=== PATIENT | male | born 1950 | race Caucasian/White ===

== ENCOUNTER 2018-05-06 19:14 | Emergency (ER) | payer MEDICARE, BC, SELFPAY ==
[2018-05-06 19:26] VITALS: BP 175/85; PULSE 71; RESP 18; TEMP 36.1; O2SAT 99
--- NOTE | 2018-05-06 20:20 | DI.CT.S_ITS ---
PROCEDURE: CT ABDOMEN PELVIS W CON INDICATIONS: epigastric abd pain TECHNIQUE: After the administration of intravenous contrast, 5 mm thick sections acquired from the diaphragm to the symphysis. 5 mm coronal and sagittal reformats were acquired. For radiation dose reduction, the following was used: automated exposure control, adjustment of mA and/or kV according to patient size. COMPARISON: None. FINDINGS: Image quality: Excellent. ABDOMEN: Lung bases: Bibasilar dependent atelectasis are seen. Cardiac size is enlarged, no pericardial effusion. Solid organs: Liver is normal in size. Hepatic steatosis is seen. Gallbladder is surgically absent. Biliary system is non dilated. Pancreas enhances normally. Spleen is normal in size and enhancement. No adrenal nodules. There is right perinephric fat stranding and mild dilatation of right renal collecting system and right ureter. 3 mm calcification is seen in distal right ureter just proximal to right UVJ, consistent with distal right ureteral stone and right hydronephrosis. No left-sided obstructing renal stone hydronephrosis. Bilateral renal cysts are seen measures up to 7.9 x 6.7 cm in size in lower pole of right kidney and up to 2.1 x 3.3 cm in size in mid to lower pole of left kidney. Bilateral nonobstructing renal calculi are also seen. Peritoneum and bowel: Patient is status post prior gastric bypass surgery. No evidence of bowel obstruction. No gross abnormal bowel wall thickening or mesenteric fat stranding. Appendix is visualized and is within normal limits. Extensive sigmoid diverticulosis is seen, no CT evidence of acute diverticulitis. Nodes and vessels: No retroperitoneal or mesenteric adenopathy by size criteria. Aorta and inferior vena cava are normal in size. Miscellaneous: No ventral hernias. PELVIS: Genitourinary: Bladder wall thickness is normal. Mildly enlarged prostate gland is seen with mild mass effect on floor of urinary bladder. Miscellaneous: No inguinal hernias or adenopathy. Bones: No suspicious bony lesions. No vertebral body compression fractures. IMPRESSION: 1. 3 mm right distal ureteral stone with mild right-sided hydronephrosis and hydroureter. Mild right perinephric fat stranding. 2. Bilateral renal cysts and bilateral nonobstructing renal stones. No left-sided hydronephrosis. 3. Normal appendix. No bowel obstruction. No free fluid or free air. Extensive sigmoid diverticulosis with no CT evidence of acute diverticulitis. Dictated by: Chris Hughes M.D. on 05/06/2018 at 21:45 Approved by: Chris Hughes M.D. on 05/06/2018 at 21:49
[2018-05-06 20:28] VITALS: BP 154/75; PULSE 70; O2SAT 99
[2018-05-06] MEDS: SODIUM CHLORIDE 0.9% 1,000 ML 1000 ML IV (20:28)
[2018-05-06] MEDS: MORPHINE 4 MG/ML INJ IV ×2 (20:28→22:05)
[2018-05-06] MEDS: ONDANSETRON 4 MG/2 ML INJ IV (20:28)
[2018-05-06 20:56] LABS: Add Manual Diff / Slide Review NO; Basophils Percent Auto 0.2 % (0-2); Eosinophils Percent Auto 0.8 % (2-4); Hematocrit 48.7 % (41-53); Hemoglobin 16.3 g/dL (13.5-17.5); Lymphocytes Percent Auto 7.1 % (25-40); Mean Corpuscular HGB Conc 33.4 % (30-36); Mean Corpuscular Hemoglobin 28.6 PG (26-34); Mean Corpuscular Volume 85.6 fL (80-100); Monocytes Percent Auto 7.3 % (3-14); Neutrophils Absolute Auto 13200 /uL (3000-5900); Neutrophils Percent Auto 84.6 % (50-75); Platelet Count 300 X10^3/uL (150-400); Red Blood Cell Count 5.68 X10^6/uL (4.5-5.9); Red Cell Distribution Width 16.2 % (11.6-14.8); White Blood Cell Count 15.6 X10^3/uL (4.5-11.0)
[2018-05-06 21:07] LABS: Alanine Aminotransferase 28 IU/L (21-72); Albumin 4.6 g/dL (3.5-5.0); Albumin Globulin Ratio 1.5 (1.0-2.8); Alkaline Phosphatase 76 U/L (38-126); Amylase 83 U/L (30-110); Aspartate Aminotransferase 35 IU/L (17-59); Bilirubin Total 2.1 mg/dL (0.2-1.3); Blood Urea Nitrogen 18 mg/dL (9-20); Calcium 9.6 mg/dL (8.4-10.2); Carbon Dioxide 26 mmol/L (22-32); Chloride 97 mmol/L (98-107); Creatine Kinase 168 U/L (55-170); Estimated Glomerular Filt Rate > 60.0 mL/min (>60); Glucose 130 mg/dL (80-110); Lipase 117 U/L (23-300); Potassium 4.3 mmol/L (3.4-5.1); Sodium 137 mmol/L (137-145); Total Protein 7.6 g/dL (6.3-8.2)
[2018-05-06 21:18] LABS: Troponin I < 0.012 ng/mL (0.01-0.034)
[2018-05-06 21:22] LABS: Creatine Kinase MB 1.65 ng/mL (<2.37); HEMOLYSIS 24 (0-50)
[2018-05-06] MEDS: METOCLOPRAMIDE 10 MG/2 ML INJ IV (22:05)
[2018-05-06] MEDS: KETOROLAC 60 MG/2 ML VIAL 15 MG IV (22:05)
[2018-05-06 22:28] LABS: Bacteria Urine None Seen
[2018-05-06 22:45] VITALS: BP 114/67; PULSE 67; RESP 18; O2SAT 93
[2018-05-06 22:45] LABS: Appearance Urine UA CLEAR; Bilirubin Urine UA NEGATIVE (NEGATIVE); Color Urine UA YELLOW; Glucose Urine UA NEGATIVE (Normal); Ketones Urine UA TRACE (NEGATIVE); Leukocyte Esterase Urine UA NEGATIVE (NEGATIVE); Nitrite Urine UA Negative (Negative); Occult Blood Urine UA 2+ (Negative); Protein Urine UA NEGATIVE (Negative); Urobilinogen Urine UA 0.2 E.U./dL (0.2)
[2018-05-06 22:55] LABS: Culture Indicated Urine Cult Not Indicated; RBC Urine 1-5/HPF (0-5/HPF); WBC Urine 0-1/HPF (0-5/HPF)
--- NOTE | 2018-05-06 22:58 | ED.ABDPAIN ---
HPI - Abdominal Pain <CHANDRA Fu - Last Filed: 05/06/18 23:08> General Chief Complaint: Abdominal Pain Stated Complaint: STATES DIVERTICULITIS FLARE Time Seen by Provider: 05/06/18 20:01 Source: patient and family Mode of arrival: ambulatory Limitations: no limitations History of Present Illness HPI narrative: Patient presents with chief complaint of abdominal pain. He states that he is having a diverticulitis flare that started at 3:00 p.m.. He complains of nausea, but denies vomiting or diarrhea. Denies fever chills, chest pain or shortness of breath cough or congestion. He does complain of nausea. He took a does of Zofran prior to arrival. He states that he has a history of diverticulitis and that this is an exacerbation of it. He denies any abnormal bowel movements or blood in the stool. He does admit to some surgical abdominal history. He denies any urinary symptoms including urgency frequency or dysuria. Related Data Home Medications Medication Instructions Recorded Confirmed aspirin 81 mg tablet,delayed 81 mg PO DAILY 04/27/18 04/27/18 release hydrochlorothiazide 12.5 mg tablet 12.5 mg PO DAILY 04/27/18 04/27/18 krill oil 500 mg capsule mg PO cap 04/27/18 04/27/18 levothyroxine 125 mcg capsule 65 mcg PO DAILY cap 04/27/18 04/27/18 testosterone 1.62 % (20.25 mg/1.25 TOP gram 04/27/18 04/27/18 gram) transdermal gel packet Previous Rx's Medication Instructions Recorded amoxicillin 875 mg-potassium 1 tab PO BID 10 Days #20 tab 04/27/18 clavulanate 125 mg tablet ondansetron 4 mg PO TID-QID PRN #20 tab 05/06/18 oxycodone-acetaminophen [Percocet] 2 tab PO Q4-6H PRN #14 tab 05/06/18 Allergies Allergy/AdvReac Type Severity Reaction Status Date / Time No Known Drug Allergies Allergy Unverified 04/27/18 09:17 Review of Systems <CHANDRA Fu - Last Filed: 05/06/18 23:08> Review of Systems GENERAL: Denies chills, fatigue, malaise, fever, sweats. HEENT: Denies sinus pain, ear pain, sore throat, difficulty swallowing, dizziness. RESPIRATORY: Denies dyspnea, cough, wheezing, hemoptysis, sputum. CARDIOVASCULAR: Denies chest pain, palpitations, orthopnea, edema, GASTROINTESTINAL: See HPI : Denies dysuria, frequency, incontinence, hematuria, urinary retention. MUSCULOSKELETAL: denies weakness, joint pain, or bony pain SKIN: Denies rash, skin lesions, or other NEUROLOGIC: Denies weakness, headache, numbness, change in speech, confusion, seizures, incoordination. PSYCHIATRIC: No concerning psychosocial issues. 12 point review of systems is negative except for those stated above Exam <WILLIS Fu-BC - Last Filed: 05/06/18 23:08> Narrative Exam Narrative: GENERAL: This is a well-nourished, well-developed patient, lying on stretcher with vomit bag HEAD: Atraumatic. Normocephalic. No temporal or scalp tenderness. EYES: Pupils equal round and reactive. Extraocular motions intact. No scleral icterus. No injection or drainage. ENT: Nose without bleeding, purulent drainage or septal hematoma. Throat without erythema, tonsillar hypertrophy or exudate. Uvula midline. Airway patent. NECK: Trachea midline. No JVD or lymphadenopathy. Supple, nontender, no meningeal signs. CARDIOVASCULAR: Regular rate and rhythm without murmurs, gallops, or rubs. RESPIRATORY: Clear to auscultation. Breath sounds equal bilaterally. No wheezes, rales, or rhonchi. GASTROINTESTINAL: Abdomen obese and diffusely tender, nondistended. No hepato-splenomegaly, or palpable masses. Like being noted right lower and left lower quadrants. No pulsatile mass palpated. Active bowel sounds all 4 quadrants. EXTREMITIES: No clubbing, cyanosis, or edema. No joint tenderness, effusion, or edema noted. BACK: Nontender without deformity or crepitance. No flank tenderness. NEURO: AOx3. SKIN: No rash or erythema. Initial Vital Signs Initial Vital Signs: Vital Signs Temperature 97.0 F L 05/06/18 19:26 Pulse Rate 71 05/06/18 19:26 Respiratory Rate 18 05/06/18 19:26 Blood Pressure 175/85 H 05/06/18 19:26 Pulse Oximetry 99 05/06/18 19:26 <Sabino Calvo DO - Last Filed: 05/06/18 23:49> Initial Vital Signs Initial Vital Signs: Vital Signs Temperature 97.0 F L 05/06/18 19:26 Pulse Rate 71 05/06/18 19:26 Respiratory Rate 18 05/06/18 19:26 Blood Pressure 175/85 H 05/06/18 19:26 Pulse Oximetry 99 05/06/18 19:26 Course <Hannah LyonWILLIS-BC - Last Filed: 05/06/18 23:08> Orders Ordered: ED Orders 05/06/18 20:16 EKG-12 Lead Stat 05/06/18 20:20 CT abdomen pelvis w con Stat 05/06/18 20:46 Amylase Stat Complete Blood Count AUTO DIFF Stat Comprehensive Metabolic Panel Stat Lipase Stat Troponin & CK Cardiac Panel Stat 05/06/18 22:21 Urinalysis and Microscopic Stat Discontinued Medications Sodium Chloride (Normal Saline 0.9%) 1,000 mls @ 1,000 mls/hr IV BOLUS ONE Stop: 05/06/18 21:16 Last Infusion: 05/06/18 21:36 Dose: 0 mls/hr Admin: 05/06/18 20:28 Dose: 1,000 mls/hr Ketorolac Tromethamine (Toradol) 15 mg IV NOW ONE Stop: 05/06/18 21:55 Last Admin: 05/06/18 22:05 Dose: 15 mg Metoclopramide HCl (Reglan) 10 mg IV NOW ONE Stop: 05/06/18 21:53 Last Admin: 05/06/18 22:05 Dose: 10 mg Morphine Sulfate (Morphine) 4 mg IV NOW ONE Stop: 05/06/18 20:19 Last Admin: 05/06/18 20:28 Dose: 4 mg Morphine Sulfate (Morphine) 4 mg IV NOW ONE Stop: 05/06/18 21:53 Last Admin: 05/06/18 22:05 Dose: 4 mg Ondansetron HCl (Zofran) 4 mg IV NOW ONE Stop: 05/06/18 20:19 Last Admin: 05/06/18 20:28 Dose: 4 mg Vital Signs - 8 hr 05/06/18 19:26 05/06/18 20:28 05/06/18 22:45 Temperature 97.0 F L Pulse Rate 71 70 67 Respiratory Rate 18 18 Blood Pressure 175/85 H Blood Pressure [Left Arm] 154/75 H Blood Pressure [Left Wrist] 114/67 Pulse Oximetry 99 99 93 <Sabino Calvo DO - Last Filed: 05/06/18 23:49> Orders Ordered: ED Orders 05/06/18 20:16 EKG-12 Lead Stat 05/06/18 20:20 CT abdomen pelvis w con Stat 05/06/18 20:46 Amylase Stat Complete Blood Count AUTO DIFF Stat Comprehensive Metabolic Panel Stat Lipase Stat Troponin & CK Cardiac Panel Stat 05/06/18 22:21 Urinalysis and Microscopic Stat Discontinued Medications Sodium Chloride (Normal Saline 0.9%) 1,000 mls @ 1,000 mls/hr IV BOLUS ONE Stop: 05/06/18 21:16 Last Infusion: 05/06/18 21:36 Dose: 0 mls/hr Admin: 05/06/18 20:28 Dose: 1,000 mls/hr Ketorolac Tromethamine (Toradol) 15 mg IV NOW ONE Stop: 05/06/18 21:55 Last Admin: 05/06/18 22:05 Dose: 15 mg Metoclopramide HCl (Reglan) 10 mg IV NOW ONE Stop: 05/06/18 21:53 Last Admin: 05/06/18 22:05 Dose: 10 mg Morphine Sulfate (Morphine) 4 mg IV NOW ONE Stop: 05/06/18 20:19 Last Admin: 05/06/18 20:28 Dose: 4 mg Morphine Sulfate (Morphine) 4 mg IV NOW ONE Stop: 05/06/18 21:53 Last Admin: 05/06/18 22:05 Dose: 4 mg Ondansetron HCl (Zofran) 4 mg IV NOW ONE Stop: 05/06/18 20:19 Last Admin: 05/06/18 20:28 Dose: 4 mg Vital Signs - 8 hr 05/06/18 19:26 05/06/18 20:28 05/06/18 22:45 Temperature 97.0 F L Pulse Rate 71 70 67 Respiratory Rate 18 18 Blood Pressure 175/85 H Blood Pressure [Left Arm] 154/75 H Blood Pressure [Left Wrist] 114/67 Pulse Oximetry 99 99 93 MDM - Abdominal Pain <CHANDRA Fu - Last Filed: 05/06/18 23:08> Differential Diagnosis Differential diagnosis: Likely abdominal pain, acute appendicitis, calculus of kidney, constipation and diverticulitis Lab Data Attestation: I reviewed the patient's lab results. Result diagrams: 05/06/18 20:46 05/06/18 20:46 Lab Results 05/06/18 05/06/18 05/06/18 Range/Units 20:46 20:46 20:46 WBC 15.6 H (4.5-11.0) X10^3/uL RBC 5.68 (4.5-5.9) X10^6/uL Hgb 16.3 (13.5-17.5) g/dL Hct 48.7 (41-53) % MCV 85.6 (80-100) fL MCH 28.6 (26-34) PG MCHC 33.4 (30-36) % RDW 16.2 H (11.6-14.8) % Plt Count 300 (150-400) X10^3/uL Neut % (Auto) 84.6 H (50-75) % Lymph % (Auto) 7.1 L (25-40) % [place] % (Auto) 7.3 (3-14) % Eos % (Auto) 0.8 L (2-4) % Baso % (Auto) 0.2 (0-2) % Neut # (Auto) 70095 H (0804-9201) /uL Sodium Cancelled 137 Potassium Cancelled 4.3 Chloride Cancelled 97 L Carbon Dioxide Cancelled 26 BUN Cancelled 18 Creatinine Cancelled 1.20 Estimated GFR Cancelled > 60.0 BUN/Creatinine Ratio Cancelled 15.0 Glucose Cancelled 130 H Calcium Cancelled 9.6 Total Bilirubin Cancelled 2.1 H AST Cancelled 35 ALT Cancelled 28 Alkaline Phosphatase Cancelled 76 Total Creatine Kinase 168 (55-170) U/L CK-MB (CK-2) 1.65 (<2.37) ng/mL CK-MB (CK-2) Rel Index 1.0 L (1.5-5.0) % Troponin I < 0.012 (0.01-0.034) ng/mL Total Protein Cancelled 7.6 Albumin Cancelled 4.6 Globulin Cancelled 3.0 Albumin/Globulin Ratio Cancelled 1.5 Amylase 83 (30-110) U/L Lipase Cancelled 117 Specimen Hemolysis Cancelled Urine Color Urine Appearance Urine pH (4.5-8.0) Ur Specific [place] (1.000-1.035) Urine Protein (Negative) Urine Glucose (UA) (Normal) g/dL Urine Ketones (NEGATIVE) Urine Occult Blood (Negative) Urine Nitrate (Negative) Urine Bilirubin (NEGATIVE) Urine Urobilinogen (0.2) E.U./dL Ur Leukocyte Esterase (NEGATIVE) Urine RBC (0-5/HPF) Urine WBC (0-5/HPF) Urine Bacteria (None) Ur Culture Indicated? Micro UA Comment 05/06/18 Range/Units 22:21 WBC (4.5-11.0) X10^3/uL RBC (4.5-5.9) X10^6/uL Hgb (13.5-17.5) g/dL Hct (41-53) % MCV (80-100) fL MCH (26-34) PG MCHC (30-36) % RDW (11.6-14.8) % Plt Count (150-400) X10^3/uL Neut % (Auto) (50-75) % Lymph % (Auto) (25-40) % [place] % (Auto) (3-14) % Eos % (Auto) (2-4) % Baso % (Auto) (0-2) % Neut # (Auto) (4487-5888) /uL Sodium Potassium Chloride Carbon Dioxide BUN Creatinine Estimated GFR BUN/Creatinine Ratio Glucose Calcium Total Bilirubin AST ALT Alkaline Phosphatase Total Creatine Kinase (55-170) U/L CK-MB (CK-2) (<2.37) ng/mL CK-MB (CK-2) Rel Index (1.5-5.0) % Troponin I (0.01-0.034) ng/mL Total Protein Albumin Globulin Albumin/Globulin Ratio Amylase (30-110) U/L Lipase Specimen Hemolysis Urine Color Yellow Urine Appearance Clear Urine pH 5.0 (4.5-8.0) Ur Specific [place] 1.020 (1.000-1.035) Urine Protein Negative (Negative) Urine Glucose (UA) Negative (Normal) g/dL Urine Ketones Trace H (NEGATIVE) Urine Occult Blood 2+ H (Negative) Urine Nitrate Negative (Negative) Urine Bilirubin Negative (NEGATIVE) Urine Urobilinogen 0.2 (0.2) E.U./dL Ur Leukocyte Esterase Negative (NEGATIVE) Urine RBC 1-5/hpf (0-5/HPF) Urine WBC 0-1/hpf (0-5/HPF) Urine Bacteria None seen (None) Ur Culture Indicated? Cult not indicated Micro UA Comment Not Reportable Point of care testing: Urine Dip Bedside Urine Glucose Negative Bedside Urine Bilirubin - Negative Bedside Urine Ketone +/- 5 Urine Specific [place] 1.025 Bedside Urine Occult Blood ++ Bedside Urine pH 5.5 Bedside Urine Protein +/- 15 Bedside Urine Urobilinogen - Negative Bedside Urine Nitrite - Negative Bedside Urine Leukocytes - Negative Esterase Imaging Data CT scan - abdomen: Radiologist's impression: [address] [address] [address] Scan Report Signed Patient: Ej Man#: [id number] : 3Acct:[id number] Age/Sex: 67 / MDate of Service: 05/06/18 Loc: ED Accession Number: [id number] Procedure: CT abdomen pelvis w con Ordering Provider: Hannah Lyon [employer]-BC PROCEDURE: CT ABDOMEN PELVIS W CON INDICATIONS: epigastric abd pain TECHNIQUE: After the administration of intravenous contrast, 5 mm thick sections acquired from the diaphragm to the symphysis. 5 mm coronal and sagittal reformats were acquired. For radiation dose reduction, the following was used: automated exposure control, adjustment of mA and/or kV according to patient size. COMPARISON: None. FINDINGS: Image quality: Excellent. ABDOMEN: Lung bases: Bibasilar dependent atelectasis are seen. Cardiac size is enlarged, no pericardial effusion. Solid organs: Liver is normal in size. Hepatic steatosis is seen. Gallbladder is surgically absent. Biliary system is non dilated. Pancreas enhances normally. Spleen is normal in size and enhancement. No adrenal nodules. There is right perinephric fat stranding and mild dilatation of right renal collecting system and right ureter. 3 mm calcification is seen in distal right ureter just proximal to right UVJ, consistent with distal right ureteral stone and right hydronephrosis. No left-sided obstructing renal stone hydronephrosis. Bilateral renal cysts are seen measures up to 7.9 x 6.7 cm in size in lower pole of right kidney and up to 2.1 x 3.3 cm in size in mid to lower pole of left kidney. Bilateral nonobstructing renal calculi are also seen. Peritoneum and bowel: Patient is status post prior gastric bypass surgery. No evidence of bowel obstruction. No gross abnormal bowel wall thickening or mesenteric fat stranding. Appendix is visualized and is within normal limits. Extensive sigmoid diverticulosis is seen, no CT evidence of acute diverticulitis. Nodes and vessels: No retroperitoneal or mesenteric adenopathy by size criteria. Aorta and inferior vena cava are normal in size. Miscellaneous: No ventral hernias. PELVIS: Genitourinary: Bladder wall thickness is normal. Mildly enlarged prostate gland is seen with mild mass effect on floor of urinary bladder. Miscellaneous: No inguinal hernias or adenopathy. Bones: No suspicious bony lesions. No vertebral body compression fractures. IMPRESSION: 1. 3 mm right distal ureteral stone with mild right-sided hydronephrosis and hydroureter. Mild right perinephric fat stranding. 2. Bilateral renal cysts and bilateral nonobstructing renal stones. No left-sided hydronephrosis. 3. Normal appendix. No bowel obstruction. No free fluid or free air. Extensive sigmoid diverticulosis with no CT evidence of acute diverticulitis. Dictated by: Chris Hughes M.D. on 05/06/2018 at 21:45 Approved by: Chris Hughes M.D. on 05/06/2018 at 21:49 ECG Data Attestation: I personally reviewed and interpreted this ECG as follows: Prior ECG tracings: not available for review Interpretation: Sinus rhythm. Heart rate 85. single PVC noted. No ST elevation or depression. MDM Narrative Medical decision making narrative: Patient presented with chief complaint of abdominal pain, of believing it was diverticulitis. His CT scan revealed a kidney stone in his right ureter. He was treated with morphine Toradol and fluids as well as Zofran and Reglan in the emergency department. I discussed at length following up his primary care provider in a few days, straining his urine, nausea and pain control at home as well as pushing fluids. I discussed following up if noted signs of infection including fever. His urine had no signs of infection in the emergency department. Patient and had no questions or concerns upon discharge and states understanding of instructions. <Sabino Calvo, - Last Filed: 05/06/18 23:49> Lab Data Lab Results 05/06/18 05/06/18 05/06/18 Range/Units 20:46 20:46 20:46 WBC 15.6 H (4.5-11.0) X10^3/uL RBC 5.68 (4.5-5.9) X10^6/uL Hgb 16.3 (13.5-17.5) g/dL Hct 48.7 (41-53) % MCV 85.6 (80-100) fL MCH 28.6 (26-34) PG MCHC 33.4 (30-36) % RDW 16.2 H (11.6-14.8) % Plt Count 300 (150-400) X10^3/uL Neut % (Auto) 84.6 H (50-75) % Lymph % (Auto) 7.1 L (25-40) % [place] % (Auto) 7.3 (3-14) % Eos % (Auto) 0.8 L (2-4) % Baso % (Auto) 0.2 (0-2) % Neut # (Auto) 98786 H (3221-9708) /uL Sodium Cancelled 137 Potassium Cancelled 4.3 Chloride Cancelled 97 L Carbon Dioxide Cancelled 26 BUN Cancelled 18 Creatinine Cancelled 1.20 Estimated GFR Cancelled > 60.0 BUN/Creatinine Ratio Cancelled 15.0 Glucose Cancelled 130 H Calcium Cancelled 9.6 Total Bilirubin Cancelled 2.1 H AST Cancelled 35 ALT Cancelled 28 Alkaline Phosphatase Cancelled 76 Total Creatine Kinase 168 (55-170) U/L CK-MB (CK-2) 1.65 (<2.37) ng/mL CK-MB (CK-2) Rel Index 1.0 L (1.5-5.0) % Troponin I < 0.012 (0.01-0.034) ng/mL Total Protein Cancelled 7.6 Albumin Cancelled 4.6 Globulin Cancelled 3.0 Albumin/Globulin Ratio Cancelled 1.5 Amylase 83 (30-110) U/L Lipase Cancelled 117 Specimen Hemolysis Cancelled Urine Color Urine Appearance Urine pH (4.5-8.0) Ur Specific [place] (1.000-1.035) Urine Protein (Negative) Urine Glucose (UA) (Normal) g/dL Urine Ketones (NEGATIVE) Urine Occult Blood (Negative) Urine Nitrate (Negative) Urine Bilirubin (NEGATIVE) Urine Urobilinogen (0.2) E.U./dL Ur Leukocyte Esterase (NEGATIVE) Urine RBC (0-5/HPF) Urine WBC (0-5/HPF) Urine Bacteria (None) Ur Culture Indicated? Micro UA Comment 05/06/18 Range/Units 22:21 WBC (4.5-11.0) X10^3/uL RBC (4.5-5.9) X10^6/uL Hgb (13.5-17.5) g/dL Hct (41-53) % MCV (80-100) fL MCH (26-34) PG MCHC (30-36) % RDW (11.6-14.8) % Plt Count (150-400) X10^3/uL Neut % (Auto) (50-75) % Lymph % (Auto) (25-40) % [place] % (Auto) (3-14) % Eos % (Auto) (2-4) % Baso % (Auto) (0-2) % Neut # (Auto) (0966-1562) /uL Sodium Potassium Chloride Carbon Dioxide BUN Creatinine Estimated GFR BUN/Creatinine Ratio Glucose Calcium Total Bilirubin AST ALT Alkaline Phosphatase Total Creatine Kinase (55-170) U/L CK-MB (CK-2) (<2.37) ng/mL CK-MB (CK-2) Rel Index (1.5-5.0) % Troponin I (0.01-0.034) ng/mL Total Protein Albumin Globulin Albumin/Globulin Ratio Amylase (30-110) U/L Lipase Specimen Hemolysis Urine Color Yellow Urine Appearance Clear Urine pH 5.0 (4.5-8.0) Ur Specific [place] 1.020 (1.000-1.035) Urine Protein Negative (Negative) Urine Glucose (UA) Negative (Normal) g/dL Urine Ketones Trace H (NEGATIVE) Urine Occult Blood 2+ H (Negative) Urine Nitrate Negative (Negative) Urine Bilirubin Negative (NEGATIVE) Urine Urobilinogen 0.2 (0.2) E.U./dL Ur Leukocyte Esterase Negative (NEGATIVE) Urine RBC 1-5/hpf (0-5/HPF) Urine WBC 0-1/hpf (0-5/HPF) Urine Bacteria None seen (None) Ur Culture Indicated? Cult not indicated Micro UA Comment Not Reportable Point of care testing: Urine Dip Bedside Urine Glucose Negative Bedside Urine Bilirubin - Negative Bedside Urine Ketone +/- 5 Urine Specific [place] 1.025 Bedside Urine Occult Blood ++ Bedside Urine pH 5.5 Bedside Urine Protein +/- 15 Bedside Urine Urobilinogen - Negative Bedside Urine Nitrite - Negative Bedside Urine Leukocytes - Negative Esterase Discharge Plan Departure Patient Disposition: Home Clinical Impression: Kidney stone on right side Discharge Date/Time: 05/06/18 23:20 Interventions: ED Discharge Assessment Last Done: 05/06/18 23:19 Instructions: DI for Kidney Stones Activity Restrictions/Additional Instructions: Please push fluids, take the pain medication as needed. The aware that the pain medication him be constipating, so please eat fiber with. Please follow-up with primary care provider in a few days if you have not passed the kidney stone. Please strain your urine with the provided strainer. Come back to the emergency department for any acute concerns. Please monitor for fever, inability keep down fluids or signs of infection. Usually these stones pass by themselves, but sometimes you need to see a specialist to have them removed. Prescriptions: New oxycodone-acetaminophen [Percocet] 5-325 mg tablet 2 tab PO Q4-6H PRN (Reason: pain) Qty: 14 RF: 0 ondansetron 4 mg tablet,disintegrating 4 mg PO TID-QID PRN (Reason: nausea and vomiting) Qty: 20 RF: 0 No Action aspirin [Adult Low Dose Aspirin] 81 mg tablet,delayed release (DR/EC) 81 mg PO DAILY RF: 0 hydrochlorothiazide 12.5 mg tablet 12.5 mg PO DAILY RF: 0 levothyroxine 125 mcg capsule 65 mcg PO DAILY RF: 0 krill oil 500 mg capsule PO RF: 0 testosterone [AndroGel] 1.62 % (20.25 mg/1.25 gram) gel in packet TOP RF: 0 amoxicillin-pot clavulanate [Augmentin] 875-125 mg tablet 1 tab PO BID 10 Days Qty: 20 RF: 0 <Sabino Calvo DO - Last Filed: 05/06/18 23:49> Tru ED Attending Raghav Attestation: I was available for consultation during this patient's emergency department encounter
--- NOTE | 2018-05-06 23:06 | ED_ITS ---
HPI - Abdominal Pain <CHANDRA Fu - Last Filed: 05/06/18 23:08> General Chief Complaint: Abdominal Pain Stated Complaint: STATES DIVERTICULITIS FLARE Time Seen by Provider: 05/06/18 20:01 Source: patient and family Mode of arrival: ambulatory Limitations: no limitations History of Present Illness HPI narrative: Patient presents with chief complaint of abdominal pain. He states that he is having a diverticulitis flare that started at 3:00 p.m.. He complains of nausea, but denies vomiting or diarrhea. Denies fever chills, chest pain or shortness of breath cough or congestion. He does complain of nausea. He took a does of Zofran prior to arrival. He states that he has a history of diverticulitis and that this is an exacerbation of it. He denies any abnormal bowel movements or blood in the stool. He does admit to some surgical abdominal history. He denies any urinary symptoms including urgency frequency or dysuria. Related Data Home Medications Medication Instructions Recorded Confirmed aspirin 81 mg tablet,delayed 81 mg PO DAILY 04/27/18 04/27/18 release hydrochlorothiazide 12.5 mg tablet 12.5 mg PO DAILY 04/27/18 04/27/18 krill oil 500 mg capsule mg PO cap 04/27/18 04/27/18 levothyroxine 125 mcg capsule 65 mcg PO DAILY cap 04/27/18 04/27/18 testosterone 1.62 % (20.25 mg/1.25 TOP gram 04/27/18 04/27/18 gram) transdermal gel packet Previous Rx's Medication Instructions Recorded amoxicillin 875 mg-potassium 1 tab PO BID 10 Days #20 tab 04/27/18 clavulanate 125 mg tablet ondansetron 4 mg PO TID-QID PRN #20 tab 05/06/18 oxycodone-acetaminophen [Percocet] 2 tab PO Q4-6H PRN #14 tab 05/06/18 Allergies Allergy/AdvReac Type Severity Reaction Status Date / Time No Known Drug Allergies Allergy Unverified 04/27/18 09:17 Review of Systems <CHANDRA Fu - Last Filed: 05/06/18 23:08> Review of Systems GENERAL: Denies chills, fatigue, malaise, fever, sweats. HEENT: Denies sinus pain, ear pain, sore throat, difficulty swallowing, dizziness. RESPIRATORY: Denies dyspnea, cough, wheezing, hemoptysis, sputum. CARDIOVASCULAR: Denies chest pain, palpitations, orthopnea, edema, GASTROINTESTINAL: See HPI : Denies dysuria, frequency, incontinence, hematuria, urinary retention. MUSCULOSKELETAL: denies weakness, joint pain, or bony pain SKIN: Denies rash, skin lesions, or other NEUROLOGIC: Denies weakness, headache, numbness, change in speech, confusion, seizures, incoordination. PSYCHIATRIC: No concerning psychosocial issues. 12 point review of systems is negative except for those stated above Exam <WILLIS Fu-BC - Last Filed: 05/06/18 23:08> Narrative Exam Narrative: GENERAL: This is a well-nourished, well-developed patient, lying on stretcher with vomit bag HEAD: Atraumatic. Normocephalic. No temporal or scalp tenderness. EYES: Pupils equal round and reactive. Extraocular motions intact. No scleral icterus. No injection or drainage. ENT: Nose without bleeding, purulent drainage or septal hematoma. Throat without erythema, tonsillar hypertrophy or exudate. Uvula midline. Airway patent. NECK: Trachea midline. No JVD or lymphadenopathy. Supple, nontender, no meningeal signs. CARDIOVASCULAR: Regular rate and rhythm without murmurs, gallops, or rubs. RESPIRATORY: Clear to auscultation. Breath sounds equal bilaterally. No wheezes , rales, or rhonchi. GASTROINTESTINAL: Abdomen obese and diffusely tender, nondistended. No hepato- splenomegaly, or palpable masses. Like being noted right lower and left lower quadrants. No pulsatile mass palpated. Active bowel sounds all 4 quadrants. EXTREMITIES: No clubbing, cyanosis, or edema. No joint tenderness, effusion, or edema noted. BACK: Nontender without deformity or crepitance. No flank tenderness. NEURO: AOx3. SKIN: No rash or erythema. Initial Vital Signs Initial Vital Signs: Vital Signs Temperature 97.0 F L 05/06/18 19:26 Pulse Rate 71 05/06/18 19:26 Respiratory Rate 18 05/06/18 19:26 Blood Pressure 175/85 H 05/06/18 19:26 Pulse Oximetry 99 05/06/18 19:26 <Sabino Calvo DO - Last Filed: 05/06/18 23:49> Initial Vital Signs Initial Vital Signs: Vital Signs Temperature 97.0 F L 05/06/18 19:26 Pulse Rate 71 05/06/18 19:26 Respiratory Rate 18 05/06/18 19:26 Blood Pressure 175/85 H 05/06/18 19:26 Pulse Oximetry 99 05/06/18 19:26 Course <Hannah LyonWILLIS-BC - Last Filed: 05/06/18 23:08> Orders Ordered: ED Orders 05/06/18 20:16 EKG-12 Lead Stat 05/06/18 20:20 CT abdomen pelvis w con Stat 05/06/18 20:46 Amylase Stat Complete Blood Count AUTO DIFF Stat Comprehensive Metabolic Panel Stat Lipase Stat Troponin & CK Cardiac Panel Stat 05/06/18 22:21 Urinalysis and Microscopic Stat Discontinued Medications Sodium Chloride (Normal Saline 0.9%) 1,000 mls @ 1,000 mls/hr IV BOLUS ONE Stop: 05/06/18 21:16 Last Infusion: 05/06/18 21:36 Dose: 0 mls/hr Admin: 05/06/18 20:28 Dose: 1,000 mls/hr Ketorolac Tromethamine (Toradol) 15 mg IV NOW ONE Stop: 05/06/18 21:55 Last Admin: 05/06/18 22:05 Dose: 15 mg Metoclopramide HCl (Reglan) 10 mg IV NOW ONE Stop: 05/06/18 21:53 Last Admin: 05/06/18 22:05 Dose: 10 mg Morphine Sulfate (Morphine) 4 mg IV NOW ONE Stop: 05/06/18 20:19 Last Admin: 05/06/18 20:28 Dose: 4 mg Morphine Sulfate (Morphine) 4 mg IV NOW ONE Stop: 05/06/18 21:53 Last Admin: 05/06/18 22:05 Dose: 4 mg Ondansetron HCl (Zofran) 4 mg IV NOW ONE Stop: 05/06/18 20:19 Last Admin: 05/06/18 20:28 Dose: 4 mg Vital Signs - 8 hr 05/06/18 19:26 05/06/18 20:28 05/06/18 22:45 Temperature 97.0 F L Pulse Rate 71 70 67 Respiratory Rate 18 18 Blood Pressure 175/85 H Blood Pressure [Left Arm] 154/75 H Blood Pressure [Left Wrist] 114/67 Pulse Oximetry 99 99 93 <Sabino Calvo DO - Last Filed: 05/06/18 23:49> Orders Ordered: ED Orders 05/06/18 20:16 EKG-12 Lead Stat 05/06/18 20:20 CT abdomen pelvis w con Stat 05/06/18 20:46 Amylase Stat Complete Blood Count AUTO DIFF Stat Comprehensive Metabolic Panel Stat Lipase Stat Troponin & CK Cardiac Panel Stat 05/06/18 22:21 Urinalysis and Microscopic Stat Discontinued Medications Sodium Chloride (Normal Saline 0.9%) 1,000 mls @ 1,000 mls/hr IV BOLUS ONE Stop: 05/06/18 21:16 Last Infusion: 05/06/18 21:36 Dose: 0 mls/hr Admin: 05/06/18 20:28 Dose: 1,000 mls/hr Ketorolac Tromethamine (Toradol) 15 mg IV NOW ONE Stop: 05/06/18 21:55 Last Admin: 05/06/18 22:05 Dose: 15 mg Metoclopramide HCl (Reglan) 10 mg IV NOW ONE Stop: 05/06/18 21:53 Last Admin: 05/06/18 22:05 Dose: 10 mg Morphine Sulfate (Morphine) 4 mg IV NOW ONE Stop: 05/06/18 20:19 Last Admin: 05/06/18 20:28 Dose: 4 mg Morphine Sulfate (Morphine) 4 mg IV NOW ONE Stop: 05/06/18 21:53 Last Admin: 05/06/18 22:05 Dose: 4 mg Ondansetron HCl (Zofran) 4 mg IV NOW ONE Stop: 05/06/18 20:19 Last Admin: 05/06/18 20:28 Dose: 4 mg Vital Signs - 8 hr 05/06/18 19:26 05/06/18 20:28 05/06/18 22:45 Temperature 97.0 F L Pulse Rate 71 70 67 Respiratory Rate 18 18 Blood Pressure 175/85 H Blood Pressure [Left Arm] 154/75 H Blood Pressure [Left Wrist] 114/67 Pulse Oximetry 99 99 93 MDM - Abdominal Pain <CHANDRA Fu - Last Filed: 05/06/18 23:08> Differential Diagnosis Differential diagnosis: Likely abdominal pain, acute appendicitis, calculus of kidney, constipation and diverticulitis Lab Data Attestation: I reviewed the patient's lab results. Result diagrams: 05/06/18 20:46 05/06/18 20:46 Lab Results 05/06/18 05/06/18 05/06/18 Range/Units 20:46 20:46 20:46 WBC 15.6 H (4.5-11.0) X10^3/uL RBC 5.68 (4.5-5.9) X10^6/uL Hgb 16.3 (13.5-17.5) g/dL Hct 48.7 (41-53) % MCV 85.6 (80-100) fL MCH 28.6 (26-34) PG MCHC 33.4 (30-36) % RDW 16.2 H (11.6-14.8) % Plt Count 300 (150-400) X10^3/uL Neut % (Auto) 84.6 H (50-75) % Lymph % (Auto) 7.1 L (25-40) % [place]al[place] % (Auto) 7.3 (3-14) % Eos % (Auto) 0.8 L (2-4) % Baso % (Auto) 0.2 (0-2) % Neut # (Auto) 59136 H (4916-8454) /uL Sodium Cancelled 137 Potassium Cancelled 4.3 Chloride Cancelled 97 L Carbon Dioxide Cancelled 26 BUN Cancelled 18 Creatinine Cancelled 1.20 Estimated GFR Cancelled > 60.0 BUN/Creatinine Ratio Cancelled 15.0 Glucose Cancelled 130 H Calcium Cancelled 9.6 Total Bilirubin Cancelled 2.1 H AST Cancelled 35 ALT Cancelled 28 Alkaline Phosphatase Cancelled 76 Total Creatine Kinase 168 (55-170) U/L CK-MB (CK-2) 1.65 (<2.37) ng/mL CK-MB (CK-2) Rel Index 1.0 L (1.5-5.0) % Troponin I < 0.012 (0.01-0.034) ng/mL Total Protein Cancelled 7.6 Albumin Cancelled 4.6 Globulin Cancelled 3.0 Albumin/Globulin Ratio Cancelled 1.5 Amylase 83 (30-110) U/L Lipase Cancelled 117 Specimen Hemolysis Cancelled Urine Color Urine Appearance Urine pH (4.5-8.0) Ur Specific [place] (1.000-1.035) Urine Protein (Negative) Urine Glucose (UA) (Normal) g/dL Urine Ketones (NEGATIVE) Urine Occult Blood (Negative) Urine Nitrate (Negative) Urine Bilirubin (NEGATIVE) Urine Urobilinogen (0.2) E.U./dL Ur Leukocyte Esterase (NEGATIVE) Urine RBC (0-5/HPF) Urine WBC (0-5/HPF) Urine Bacteria (None) Ur Culture Indicated? Micro UA Comment 05/06/18 Range/Units 22:21 WBC (4.5-11.0) X10^3/uL RBC (4.5-5.9) X10^6/uL Hgb (13.5-17.5) g/dL Hct (41-53) % MCV (80-100) fL MCH (26-34) PG MCHC (30-36) % RDW (11.6-14.8) % Plt Count (150-400) X10^3/uL Neut % (Auto) (50-75) % Lymph % (Auto) (25-40) % [place]alier % (Auto) (3-14) % Eos % (Auto) (2-4) % Baso % (Auto) (0-2) % Neut # (Auto) (1694-3486) /uL Sodium Potassium Chloride Carbon Dioxide BUN Creatinine Estimated GFR BUN/Creatinine Ratio Glucose Calcium Total Bilirubin AST ALT Alkaline Phosphatase Total Creatine Kinase (55-170) U/L CK-MB (CK-2) (<2.37) ng/mL CK-MB (CK-2) Rel Index (1.5-5.0) % Troponin I (0.01-0.034) ng/mL Total Protein Albumin Globulin Albumin/Globulin Ratio Amylase (30-110) U/L Lipase Specimen Hemolysis Urine Color Yellow Urine Appearance Clear Urine pH 5.0 (4.5-8.0) Ur Specific [place] 1.020 (1.000-1.035) Urine Protein Negative (Negative) Urine Glucose (UA) Negative (Normal) g/dL Urine Ketones Trace H (NEGATIVE) Urine Occult Blood 2+ H (Negative) Urine Nitrate Negative (Negative) Urine Bilirubin Negative (NEGATIVE) Urine Urobilinogen 0.2 (0.2) E.U./dL Ur Leukocyte Esterase Negative (NEGATIVE) Urine RBC 1-5/hpf (0-5/HPF) Urine WBC 0-1/hpf (0-5/HPF) Urine Bacteria None seen (None) Ur Culture Indicated? Cult not indicated Micro UA Comment Not Reportable Point of care testing: Urine Dip Bedside Urine Glucose Negative Bedside Urine Bilirubin - Negative Bedside Urine Ketone +/- 5 Urine Specific [place] 1.025 Bedside Urine Occult Blood ++ Bedside Urine pH 5.5 Bedside Urine Protein +/- 15 Bedside Urine Urobilinogen - Negative Bedside Urine Nitrite - Negative Bedside Urine Leukocytes - Negative Esterase Imaging Data CT scan - abdomen: Radiologist's impression: [address] [id number] [address] Scan Report Signed Patient: Ej Man#: [id number] : 3Acct:[id number] Age/Sex: 67 / MDate of Service: 05/06/18 Loc: ED Accession Number: [id number] Procedure: CT abdomen pelvis w con Ordering Provider: Hannah Lyon [employer]CH[employer]IST-BC PROCEDURE: CT ABDOMEN PELVIS W CON INDICATIONS: epigastric abd pain TECHNIQUE: After the administration of intravenous contrast, 5 mm thick sections acquired from the diaphragm to the symphysis. 5 mm coronal and sagittal reformats were acquired. For radiation dose reduction, the following was used: automated exposure control, adjustment of mA and/or kV according to patient size. COMPARISON: None. FINDINGS: Image quality: Excellent. ABDOMEN: Lung bases: Bibasilar dependent atelectasis are seen. Cardiac size is enlarged, no pericardial effusion. Solid organs: Liver is normal in size. Hepatic steatosis is seen. Gallbladder is surgically absent. Biliary system is non dilated. Pancreas enhances normally. Spleen is normal in size and enhancement. No adrenal nodules. There is right perinephric fat stranding and mild dilatation of right renal collecting system and right ureter. 3 mm calcification is seen in distal right ureter just proximal to right UVJ, consistent with distal right ureteral stone and right hydronephrosis. No left-sided obstructing renal stone hydronephrosis. Bilateral renal cysts are seen measures up to 7.9 x 6.7 cm in size in lower pole of right kidney and up to 2.1 x 3.3 cm in size in mid to lower pole of left kidney. Bilateral nonobstructing renal calculi are also seen. Peritoneum and bowel: Patient is status post prior gastric bypass surgery. No evidence of bowel obstruction. No gross abnormal bowel wall thickening or mesenteric fat stranding. Appendix is visualized and is within normal limits. Extensive sigmoid diverticulosis is seen, no CT evidence of acute diverticulitis. Nodes and vessels: No retroperitoneal or mesenteric adenopathy by size criteria. Aorta and inferior vena cava are normal in size. Miscellaneous: No ventral hernias. PELVIS: Genitourinary: Bladder wall thickness is normal. Mildly enlarged prostate gland is seen with mild mass effect on floor of urinary bladder. Miscellaneous: No inguinal hernias or adenopathy. Bones: No suspicious bony lesions. No vertebral body compression fractures. IMPRESSION: 1. 3 mm right distal ureteral stone with mild right-sided hydronephrosis and hydroureter. Mild right perinephric fat stranding. 2. Bilateral renal cysts and bilateral nonobstructing renal stones. No left- sided hydronephrosis. 3. Normal appendix. No bowel obstruction. No free fluid or free air. Extensive sigmoid diverticulosis with no CT evidence of acute diverticulitis. Dictated by: Chris Hughes M.D. on 05/06/2018 at 21:45 Approved by: Chris Hughes M.D. on 05/06/2018 at 21:49 ECG Data Attestation: I personally reviewed and interpreted this ECG as follows: Prior ECG tracings: not available for review Interpretation: Sinus rhythm. Heart rate 85. single PVC noted. No ST elevation or depression. MDM Narrative Medical decision making narrative: Patient presented with chief complaint of abdominal pain, of believing it was diverticulitis. His CT scan revealed a kidney stone in his right ureter. He was treated with morphine Toradol and fluids as well as Zofran and Reglan in the emergency department. I discussed at length following up his primary care provider in a few days, straining his urine, nausea and pain control at home as well as pushing fluids. I discussed following up if noted signs of infection including fever. His urine had no signs of infection in the emergency department. Patient and had no questions or concerns upon discharge and states understanding of instructions. <Sabino Calvo, - Last Filed: 05/06/18 23:49> Lab Data Lab Results 05/06/18 05/06/18 05/06/18 Range/Units 20:46 20:46 20:46 WBC 15.6 H (4.5-11.0) X10^3/uL RBC 5.68 (4.5-5.9) X10^6/uL Hgb 16.3 (13.5-17.5) g/dL Hct 48.7 (41-53) % MCV 85.6 (80-100) fL MCH 28.6 (26-34) PG MCHC 33.4 (30-36) % RDW 16.2 H (11.6-14.8) % Plt Count 300 (150-400) X10^3/uL Neut % (Auto) 84.6 H (50-75) % Lymph % (Auto) 7.1 L (25-40) % [place]al[place] % (Auto) 7.3 (3-14) % Eos % (Auto) 0.8 L (2-4) % Baso % (Auto) 0.2 (0-2) % Neut # (Auto) 46098 H (3024-6392) /uL Sodium Cancelled 137 Potassium Cancelled 4.3 Chloride Cancelled 97 L Carbon Dioxide Cancelled 26 BUN Cancelled 18 Creatinine Cancelled 1.20 Estimated GFR Cancelled > 60.0 BUN/Creatinine Ratio Cancelled 15.0 Glucose Cancelled 130 H Calcium Cancelled 9.6 Total Bilirubin Cancelled 2.1 H AST Cancelled 35 ALT Cancelled 28 Alkaline Phosphatase Cancelled 76 Total Creatine Kinase 168 (55-170) U/L CK-MB (CK-2) 1.65 (<2.37) ng/mL CK-MB (CK-2) Rel Index 1.0 L (1.5-5.0) % Troponin I < 0.012 (0.01-0.034) ng/mL Total Protein Cancelled 7.6 Albumin Cancelled 4.6 Globulin Cancelled 3.0 Albumin/Globulin Ratio Cancelled 1.5 Amylase 83 (30-110) U/L Lipase Cancelled 117 Specimen Hemolysis Cancelled Urine Color Urine Appearance Urine pH (4.5-8.0) Ur Specific [place] (1.000-1.035) Urine Protein (Negative) Urine Glucose (UA) (Normal) g/dL Urine Ketones (NEGATIVE) Urine Occult Blood (Negative) Urine Nitrate (Negative) Urine Bilirubin (NEGATIVE) Urine Urobilinogen (0.2) E.U./dL Ur Leukocyte Esterase (NEGATIVE) Urine RBC (0-5/HPF) Urine WBC (0-5/HPF) Urine Bacteria (None) Ur Culture Indicated? Micro UA Comment 05/06/18 Range/Units 22:21 WBC (4.5-11.0) X10^3/uL RBC (4.5-5.9) X10^6/uL Hgb (13.5-17.5) g/dL Hct (41-53) % MCV (80-100) fL MCH (26-34) PG MCHC (30-36) % RDW (11.6-14.8) % Plt Count (150-400) X10^3/uL Neut % (Auto) (50-75) % Lymph % (Auto) (25-40) % [place] % (Auto) (3-14) % Eos % (Auto) (2-4) % Baso % (Auto) (0-2) % Neut # (Auto) (1885-6607) /uL Sodium Potassium Chloride Carbon Dioxide BUN Creatinine Estimated GFR BUN/Creatinine Ratio Glucose Calcium Total Bilirubin AST ALT Alkaline Phosphatase Total Creatine Kinase (55-170) U/L CK-MB (CK-2) (<2.37) ng/mL CK-MB (CK-2) Rel Index (1.5-5.0) % Troponin I (0.01-0.034) ng/mL Total Protein Albumin Globulin Albumin/Globulin Ratio Amylase (30-110) U/L Lipase Specimen Hemolysis Urine Color Yellow Urine Appearance Clear Urine pH 5.0 (4.5-8.0) Ur Specific [place] 1.020 (1.000-1.035) Urine Protein Negative (Negative) Urine Glucose (UA) Negative (Normal) g/dL Urine Ketones Trace H (NEGATIVE) Urine Occult Blood 2+ H (Negative) Urine Nitrate Negative (Negative) Urine Bilirubin Negative (NEGATIVE) Urine Urobilinogen 0.2 (0.2) E.U./dL Ur Leukocyte Esterase Negative (NEGATIVE) Urine RBC 1-5/hpf (0-5/HPF) Urine WBC 0-1/hpf (0-5/HPF) Urine Bacteria None seen (None) Ur Culture Indicated? Cult not indicated Micro UA Comment Not Reportable Point of care testing: Urine Dip Bedside Urine Glucose Negative Bedside Urine Bilirubin - Negative Bedside Urine Ketone +/- 5 Urine Specific [place] 1.025 Bedside Urine Occult Blood ++ Bedside Urine pH 5.5 Bedside Urine Protein +/- 15 Bedside Urine Urobilinogen - Negative Bedside Urine Nitrite - Negative Bedside Urine Leukocytes - Negative Esterase Discharge Plan Departure Patient Disposition: Home Clinical Impression: Kidney stone on right side Discharge Date/Time: 05/06/18 23:20 Interventions: ED Discharge Assessment Last Done: 05/06/18 23:19 Instructions: DI for Kidney Stones Activity Restrictions/Additional Instructions: Please push fluids, take the pain medication as needed. The aware that the pain medication him be constipating, so please eat fiber with. Please follow- up with primary care provider in a few days if you have not passed the kidney stone. Please strain your urine with the provided strainer. Come back to the emergency department for any acute concerns. Please monitor for fever, inability keep down fluids or signs of infection. Usually these stones pass by themselves, but sometimes you need to see a specialist to have them removed. Prescriptions: New oxycodone-acetaminophen [Percocet] 5-325 mg tablet 2 tab PO Q4-6H PRN (Reason: pain) Qty: 14 RF: 0 ondansetron 4 mg tablet,disintegrating 4 mg PO TID-QID PRN (Reason: nausea and vomiting) Qty: 20 RF: 0 No Action aspirin [Adult Low Dose Aspirin] 81 mg tablet,delayed release (DR/EC) 81 mg PO DAILY RF: 0 hydrochlorothiazide 12.5 mg tablet 12.5 mg PO DAILY RF: 0 levothyroxine 125 mcg capsule 65 mcg PO DAILY RF: 0 krill oil 500 mg capsule PO RF: 0 testosterone [AndroGel] 1.62 % (20.25 mg/1.25 gram) gel in packet TOP RF: 0 amoxicillin-pot clavulanate [Augmentin] 875-125 mg tablet 1 tab PO BID 10 Days Qty: 20 RF: 0 <Sabino Calvo DO - Last Filed: 05/06/18 23:49> Tru ED Attending Raghav Attestation: I was available for consultation during this patient's emergency department encounter
== END 2018-05-06 23:20 | disposition home or self-care (01) ==
PROVIDERS: Emergency Provider Nurse Practitioner Family
DX: N20.0 Calculus of kidney (principal)
CPT/HCPCS: 36591; 74177; 80053; 81001; 81003; 82150; 82550; 82553; 83690; 84484; 85025; 93005; 96361; 96374; 96375; 96376; 99283; 99285; J1885; J2270; J2405; J2765; Q9967

== ENCOUNTER → 2018-09-18 11:40 | Outpatient (CLI) | payer MEDICARE, BC, SELFPAY ==
--- NOTE | 2018-09-18 11:54 | DI.CT.S_ITS ---
PROCEDURE: CT ABDOMEN W CON INDICATIONS: Flank pain, hist of gastric bypass TECHNIQUE: After the administration of oral and intravenous contrast, 5 mm thick sections acquired from the diaphragms to the iliac crests. 5 mm thick coronal and sagittal reformats were acquired. For radiation dose reduction, the following was used: automated exposure control, adjustment of mA and/or kV according to patient size. COMPARISON: [facility], CT, CT ABDOMEN PELVIS W CON, 05/06/2018, 21:23. FINDINGS: Image quality: Excellent. Lung bases: Lung bases are clear. Heart size is normal. Solid organs: Liver is normal in size and enhancement but does appear fatty infiltrated. Gallbladder has been previously resected. Biliary system is non dilated. Pancreas enhances normally. Spleen is normal in size and enhancement. No adrenal nodules. Kidneys are normal in size, without hydronephrosis but there are several small punctate nonobstructive left renal calculi. Bilateral renal cortical cysts are present, as was previously the case with the largest cyst on the right measuring up to 7.2 cm. Peritoneum and bowel: Contrast enhanced bowel loops appear normal in caliber. No free fluid or air. Note is made of a gastric enteric staple line consistent with gastric reduction surgery. No operative complications. Nodes and vessels: No retroperitoneal or mesenteric adenopathy by size criteria. Aorta and inferior vena cava are normal in size. Bones: No suspicious bony lesions. No vertebral body compression fractures. Miscellaneous: No ventral hernias. IMPRESSION: A source of flank pain is not identified. As discussed above there is fatty infiltration throughout the liver and prior cholecystectomy has been performed. No hydronephrosis is found. Several punctate calculi are seen involving the left kidney, none of which appear obstructive. No renal inflammation is seen. Bilateral simple appearing renal cortical cysts are again noted, larger on the right than the left. The study is requested as an abdominal examination and therefore the course of the ureters through the pelvis is not included. Presence or absence of a distal ureteral calculus cannot be established by this study. No secondary CT evidence by presence of ureteral inflammation or distention is found. Dictated by: Odell Heath M.D. on 09/18/2018 at 14:15 Approved by: Odell Heath M.D. on 09/18/2018 at 14:20
[2018-09-18 12:25] LABS: Add Manual Diff / Slide Review NO; Basophils Absolute Auto 0 /uL (0-100); Basophils Percent Auto 0.4 % (0-2); Eosinophils Absolute Auto 200 /uL (0-450); Eosinophils Percent Auto 2.3 % (2-4); Hematocrit 45.5 % (41-53); Hemoglobin 15.3 g/dL (13.5-17.5); Lymphocytes Absolute Auto 1500 /uL (1100-4500); Lymphocytes Percent Auto 20.6 % (25-40); Mean Corpuscular HGB Conc 33.6 % (30-36); Mean Corpuscular Hemoglobin 30.1 PG (26-34); Mean Corpuscular Volume 89.5 fL (80-100); Monocytes Absolute Auto 700 /uL (0-900); Monocytes Percent Auto 10.1 % (3-14); Neutrophils Absolute Auto 4700 /uL (1500-7000); Neutrophils Percent Auto 66.6 % (50-75); Platelet Count 235 X10^3/uL (150-400); Red Blood Cell Count 5.09 X10^6/uL (4.5-5.9); White Blood Cell Count 7.1 X10^3/uL (4.5-11.0)
[2018-09-18 13:38] LABS: Alanine Aminotransferase 36 IU/L (21-72); Albumin 4.5 g/dL (3.5-5.0); Albumin Globulin Ratio 1.7 (1.0-2.8); Alkaline Phosphatase 109 U/L (38-126); Aspartate Aminotransferase 24 IU/L (17-59); BUN Creatinine Ratio 15.8 (6-22); Bilirubin Total 1.5 mg/dL (0.2-1.3); Blood Urea Nitrogen 19 mg/dL (9-20); Carbon Dioxide 27 mmol/L (22-32); Chloride 100 mmol/L (98-107); Estimated Glomerular Filt Rate > 60.0 mL/min (>60); Globulin 2.7 g/dL (1.7-4.1); Glucose 87 mg/dL (80-110); HEMOLYSIS < 15 (0-50); Potassium 4.5 mmol/L (3.4-5.1); Sodium 139 mmol/L (137-145); Total Protein 7.2 g/dL (6.3-8.2)
== END ==
PROVIDERS: Visit Provider Physician Assistant
DX: R10.9 Unspecified abdominal pain (principal); K76.0 Fatty (change of) liver, not elsewhere classified; Z98.84 Bariatric surgery status; Z90.49 Acquired absence of other specified parts of digestive tract; N28.1 Cyst of kidney, acquired; N20.0 Calculus of kidney
CPT/HCPCS: 36415; 74160; 80053; 85025; Q9967

== ENCOUNTER 2019-09-06 13:05 | Emergency (ER) | payer MEDICARE, BC, SELFPAY ==
[2019-09-06 13:05] VITALS: BP 159/60; PULSE 65; RESP 18; TEMP 36.8; O2SAT 96
--- NOTE | 2019-09-06 13:16 | DI.RAD.S_ITS ---
PROCEDURE: XR CHEST 1V INDICATIONS: chest pain TECHNIQUE: One view of the chest was acquired. COMPARISON: None. FINDINGS: Surgical changes and devices: None. Lungs and pleura: Lungs are clear. No pleural effusions or pneumothorax. Mediastinum: Mediastinal contours appear normal. Heart size is normal. Bones and chest wall: No suspicious bony lesions. Overlying soft tissues appear unremarkable. IMPRESSION: Normal for age considering mildly reduced inspiratory volume. Source of chest pain is not found. Dictated by: Odell Heath M.D. on 09/06/2019 at 14:04 Approved by: Odell Heath M.D. on 09/06/2019 at 14:41
[2019-09-06 13:26] LABS: Add Manual Diff / Slide Review NO; Basophils Absolute Auto 0 /uL (0-100); Basophils Percent Auto 0.4 % (0-2); Eosinophils Absolute Auto 200 /uL (0-450); Eosinophils Percent Auto 3.2 % (2-4); Hematocrit 45.9 % (41-53); Hemoglobin 15.8 g/dL (13.5-17.5); Lymphocytes Absolute Auto 1500 /uL (1100-4500); Mean Corpuscular HGB Conc 34.4 % (30-36); Mean Corpuscular Volume 87.4 fL (80-100); Monocytes Absolute Auto 900 /uL (0-900); Monocytes Percent Auto 11.9 % (3-14); Neutrophils Absolute Auto 4900 /uL (1500-7000); Neutrophils Percent Auto 64.5 % (50-75); Platelet Count 245 X10^3/uL (150-400); Red Blood Cell Count 5.26 X10^6/uL (4.5-5.9); Red Cell Distribution Width 14.4 % (11.6-14.8); White Blood Cell Count 7.6 X10^3/uL (4.5-11.0)
--- NOTE | 2019-09-06 13:28 | ED.WEAKNESS ---
HPI - Weakness General Chief complaint: Weakness Stated complaint: new onset fatigue and weakness since friday Time Seen by Provider: 09/06/19 13:16 Source: patient Mode of arrival: Ambulatory Limitations: no limitations History of Present Illness HPI Narrative: This is a 68-year-old male who comes in with complaint of weakness and feeling tired since Friday. Patient states he felt like there was a wait all over his body. It comes and goes. He denies any fevers or chills. He denies any headaches. No issues with speech, he denies any tingling or numbness. No weakness in his extremities but more generalized fatigue. He does have history painful neuropathy in his bilateral lower extremities and states this he has been told this is secondary possibly to his borderline diabetes. He denies any nausea no vomiting, no shortness of breath. He had some muscular discomfort in his chest earlier today but denies any chest pain or pressure. He has had mild swelling in his ankles last month after a gout attack but states that's resolved. He has a history of gastric bypass April of 2018 and has had 3 surgeries total for weight loss, he has sleep apnea and is on a CPAP. He has had cholecystectomy and right knee meniscus repair. He takes a diuretic hydrochlorothiazide 25 mg, thyroid medication, testosterone. He no longer takes diabetes medications as his sugars have improved. He noted that his thyroid level had doubled since it was last checked this was on the 31 of August. Denies tobacco, occasional alcohol, CBD but no illicit. He follows with a primary care Dr. Pate at [facility]. Related Data Home Medications Medication Instructions Recorded Confirmed testosterone 1.62 % (20.25 mg/1.25 TOP gram 04/27/18 08/13/19 gram) transdermal gel packet esomeprazole magnesium 40 mg 40 mg PO DAILY 09/18/18 09/06/19 capsule,delayed release CBD oil PO 03/09/19 08/13/19 montelukast 10 mg tablet 10 mg PO QPM 03/09/19 09/06/19 hydrochlorothiazide 25 mg PO DAILY 09/06/19 09/06/19 levothyroxine 62.5 mcg PO DAILY 09/06/19 09/06/19 Previous Rx's Medication Instructions Recorded colchicine 0.6 mg capsule 1.2 mg PO ONCE #3 cap 08/13/19 Allergies Allergy/AdvReac Type Severity Reaction Status Date / Time No Known Drug Allergies Allergy Verified 09/06/19 13:16 Review of Systems Review of Systems ROS Unobtainable: All systems reviewed & are unremarkable except as noted in HPI and below Patient History Medical History Asthma (Chronic) Diverticular disease (Chronic) Eczema (Chronic) Foot pain (Chronic) GERD (gastroesophageal reflux disease) (Chronic) Gout (Chronic) Hypothyroidism (Chronic) Low testosterone (Chronic) Measles (Resolved) Osteoarthritis (Chronic) Peripheral neuropathy (Chronic) Plantar warts (Chronic) Surgical History Anesthesia (Resolved) History of cholecystectomy (Resolved ~2008) History of knee surgery (Resolved ~2014) Hx of laparoscopic gastric banding (Resolved) Sleep apnea (Chronic) Social History Smoking Status: Never smoker alcohol intake: current Smoking Status: Never smoker alcohol intake frequency: 0-2 drinks per day Substance Use Type: does not use Exam Narrative Exam Narrative: GEN: Obese well-appearing male, alert and oriented x 3, patient appears to be in mild distress. HEENT: Atraumatic, pupils are equal round reactive to light, extraocular movements are intact, nares are clear. Moist mucous membranes. HEART: Regular rate and rhythm without murmur, clicks, rubs. LUNGS:Lungs clear to auscultation, no wheezes, rales, crackles, chest moves symmetrically. ABD:bowel sounds normal, soft, non-tender, no guarding, rebound, rigidity, no masses noted, no hepatosplenomegaly :No CVA tenderness. MSCL: Non-tender, no muscle atrophy, muscles strength 5/5 upper and lower extremities, full range of motion, normal gait NEURO:CN 2-12 intact, sensation normal. Initial Vital Signs Initial Vital Signs: Vital Signs Temperature 98.2 F 09/06/19 13:05 Pulse Rate 65 09/06/19 13:05 Respiratory Rate 18 09/06/19 13:05 Blood Pressure 159/60 H 09/06/19 13:05 Pulse Oximetry 96 09/06/19 13:05 Scores HEART Score Heart Score history: Slightly Suspicious Heart Score EKG: Non-Specific repolarization disturbance Heart Score Age: > or = 65 years old Heart Score risk factors: No known risk factors Heart Score troponin: < or = to normal limit Heart Score Total: 3 Course Orders Ordered: ED Orders 09/06/19 13:16 XR chest 1V Stat EKG-12 Lead Stat 09/06/19 13:20 BNP [B Type Natriuretic Peptide] Stat Complete Blood Count AUTO DIFF Stat Comprehensive Metabolic Panel Stat Lipase Stat Magnesium Stat Partial Thromboplastin Time Stat Prothrombin Time INR Stat TSH w/ Reflex to FT4 Stat Troponin & CK Cardiac Panel Stat Vital Signs Vital signs: Vital Signs - 8 hr 09/06/19 13:05 09/06/19 14:50 Temperature 98.2 F Pulse Rate 65 69 Respiratory Rate 18 17 Blood Pressure 159/60 H Blood Pressure [Left Arm] 114/71 Pulse Oximetry 96 97 MDM - Weakness Lab Data Attestation: I reviewed the patient's lab results. Result diagrams: 09/06/19 13:20 09/06/19 13:20 Labs: Lab Results 09/06/19 09/06/19 09/06/19 Range/Units 13:20 13:20 13:20 WBC 7.6 (4.5-11.0) X10^3/uL RBC 5.26 (4.5-5.9) X10^6/uL Hgb 15.8 (13.5-17.5) g/dL Hct 45.9 (41-53) % MCV 87.4 (80-100) fL MCH 30.0 (26-34) PG MCHC 34.4 (30-36) % RDW 14.4 (11.6-14.8) % Plt Count 245 (150-400) X10^3/uL Neut % (Auto) 64.5 (50-75) % Lymph % (Auto) 20.0 L (25-40) % Donley % (Auto) 11.9 (3-14) % Eos % (Auto) 3.2 (2-4) % Baso % (Auto) 0.4 (0-2) % Neut # (Auto) 4900 (3940-3661) /uL Lymph # (Auto) 1500 (4640-4656) /uL Donley # (Auto) 900 (0-900) /uL Eos # (Auto) 200 (0-450) /uL Baso # (Auto) 0 (0-100) /uL PT 11.9 (10.1-12.7) SECONDS INR 1.0 (0.9-1.3) APTT 36 (26.4-36.2) SECONDS Sodium 140 (137-145) mmol/L Potassium 4.1 (3.4-5.1) mmol/L Chloride 106 (98-107) mmol/L Carbon Dioxide 25 (22-32) mmol/L BUN 19 (9-20) mg/dL Creatinine 1.10 (0.66-1.25) mg/dL Estimated GFR > 60.0 (>60) mL/min BUN/Creatinine Ratio 17.3 (6-22) Glucose 101 (80-110) mg/dL Calcium 9.0 (8.4-10.2) mg/dL Magnesium 2.2 (1.6-2.3) mg/dL Total Bilirubin 1.3 (0.2-1.3) mg/dL AST 27 (17-59) IU/L ALT 32 (<50) IU/L Alkaline Phosphatase 132 H (38-126) U/L Total Creatine Kinase 75 (55-170) U/L CK-MB (CK-2) TNP CK-MB (CK-2) Rel Index TNP Troponin I < 0.012 (0.01-0.034) ng/mL B-Natriuretic Peptide (<100) Total Protein 7.9 (6.3-8.2) g/dL Albumin 4.7 (3.5-5.0) g/dL Globulin 3.2 (1.7-4.1) g/dL Albumin/Globulin Ratio 1.5 (1.0-2.8) Lipase 140 (23-300) U/L TSH (0.47-4.68) uIU/mL 09/06/19 09/06/19 Range/Units 13:20 13:20 WBC (4.5-11.0) X10^3/uL RBC (4.5-5.9) X10^6/uL Hgb (13.5-17.5) g/dL Hct (41-53) % MCV (80-100) fL MCH (26-34) PG MCHC (30-36) % RDW (11.6-14.8) % Plt Count (150-400) X10^3/uL Neut % (Auto) (50-75) % Lymph % (Auto) (25-40) % Donley % (Auto) (3-14) % Eos % (Auto) (2-4) % Baso % (Auto) (0-2) % Neut # (Auto) (2160-7110) /uL Lymph # (Auto) (1628-2791) /uL Donley # (Auto) (0-900) /uL Eos # (Auto) (0-450) /uL Baso # (Auto) (0-100) /uL PT (10.1-12.7) SECONDS INR (0.9-1.3) APTT (26.4-36.2) SECONDS Sodium (137-145) mmol/L Potassium (3.4-5.1) mmol/L Chloride (98-107) mmol/L Carbon Dioxide (22-32) mmol/L BUN (9-20) mg/dL Creatinine (0.66-1.25) mg/dL Estimated GFR (>60) mL/min BUN/Creatinine Ratio (6-22) Glucose (80-110) mg/dL Calcium (8.4-10.2) mg/dL Magnesium (1.6-2.3) mg/dL Total Bilirubin (0.2-1.3) mg/dL AST (17-59) IU/L ALT (<50) IU/L Alkaline Phosphatase (38-126) U/L Total Creatine Kinase (55-170) U/L CK-MB (CK-2) CK-MB (CK-2) Rel Index Troponin I (0.01-0.034) ng/mL B-Natriuretic Peptide < 100 (<100) Total Protein (6.3-8.2) g/dL Albumin (3.5-5.0) g/dL Globulin (1.7-4.1) g/dL Albumin/Globulin Ratio (1.0-2.8) Lipase (23-300) U/L TSH 3.19 (0.47-4.68) uIU/mL Urine Dip Bedside Urine Glucose Negative Bedside Urine Bilirubin - Negative Bedside Urine Ketone - Negative Urine Specific Mccleary 1.030 Bedside Urine Occult Blood - Negative Bedside Urine pH 6.0 Bedside Urine Protein - Negative Bedside Urine Urobilinogen - Negative Bedside Urine Nitrite - Negative Bedside Urine Leukocytes - Negative Esterase Imaging Data Chest x-ray: Radiologist Impression: [address] [address] XRay Report Signed Patient: Steven Man JMR#: [id number] : 3Acct:[id number] Age/Sex: 68 / MDate of Service: 09/06/19 Loc: ED Accession Number: [id number] Procedure: XR chest 1V Ordering Provider: Nicolasa Bernard PROCEDURE: XR CHEST 1V INDICATIONS: chest pain TECHNIQUE: One view of the chest was acquired. COMPARISON: None. FINDINGS: Surgical changes and devices: None. Lungs and pleura: Lungs are clear. No pleural effusions or pneumothorax. Mediastinum: Mediastinal contours appear normal. Heart size is normal. Bones and chest wall: No suspicious bony lesions. Overlying soft tissues appear unremarkable. IMPRESSION: Normal for age considering mildly reduced inspiratory volume. Source of chest pain is not found. Dictated by: Odell Heath M.D. on 09/06/2019 at 14:04 Approved by: Odell Heath M.D. on 09/06/2019 at 14:41 c ECG Data Attestation: I personally reviewed and interpreted this ECG as follows: Prior ECG tracings: available for review Interpretation: EKG shows sinus rhythm P are 197 QRS of 100 QTC of 411. Q-wave in V3 V4. Nonspecific change in 2 3 and AVF with Q-wave in 3 and AVF. Patient has similar appearing EKG from 04/2018. MDM Narrative Medical decision making narrative: Discussed with patient, no acute findings on labs, EKG and imaging. Patient urine is negative for infection. Patient feels comfortable returning home. I did encourage him to follow up with his bariatric team and inform them of his symptoms. They have been concerned about malabsorption with his prior weight loss surgeries and there has been discussion that his neuropathy may be secondary to this as well. Patient feels comfortable with this plan. Discussed return precautions. Discharge Plan Departure Patient Disposition: Home Clinical Impression: Weakness Discharge Date/Time: 09/06/19 15:21 Activity Restrictions/Additional Instructions: Follow up with your physician for your symptoms. Your labs today did not show any acute findings to describe your symptoms. Continue your home medications as prescribed. Return to ER for fevers greater than 100.4F, new chest pain, shortness of breath, persistent nausea, lightheadedness, passing out, new swelling in your extremities or other new or concerning symptoms. Prescriptions: No Action testosterone [AndroGel] 1.62 % (20.25 mg/1.25 gram) gel in packet TOP RF: 0 esomeprazole magnesium [Nexium] 40 mg capsule,delayed release(DR/EC) 40 mg PO DAILY RF: 0 colchicine 0.6 mg capsule 1.2 mg PO ONCE Qty: 3 RF: 0 montelukast 10 mg tablet 10 mg PO QPM RF: 0 CBD oil PO RF: 0 levothyroxine 125 mcg Tablet 62.5 mcg PO DAILY RF: 0 hydrochlorothiazide 25 mg Tablet 25 mg PO DAILY RF: 0
[2019-09-06 13:33] LABS: Prothrombin Time 11.9 SECONDS (10.1-12.7)
--- NOTE | 2019-09-06 13:35 | PC.NURSE ---
Patient reports starting friday overall heaviness of my whole body reports not feeling well since. Generalized weakness. Denies chest pain or SOB. Reports bilateral lower extremity swelling over the last month that he has seen PCP for. Reports some SOB at night laying flat.
[2019-09-06 13:36] LABS: PTT Partial Thromboplastin Tim 36 SECONDS (26.4-36.2)
[2019-09-06 13:40] LABS: Alanine Aminotransferase 32 IU/L (<50); Albumin 4.7 g/dL (3.5-5.0); Albumin Globulin Ratio 1.5 (1.0-2.8); Alkaline Phosphatase 132 U/L (38-126); Aspartate Aminotransferase 27 IU/L (17-59); BUN Creatinine Ratio 17.3 (6-22); Bilirubin Total 1.3 mg/dL (0.2-1.3); Blood Urea Nitrogen 19 mg/dL (9-20); Carbon Dioxide 25 mmol/L (22-32); Chloride 106 mmol/L (98-107); Creatine Kinase 75 U/L (55-170); Estimated Glomerular Filt Rate > 60.0 mL/min (>60); Globulin 3.2 g/dL (1.7-4.1); Glucose 101 mg/dL (80-110); HEMOLYSIS 15 (0-50); Lipase 140 U/L (23-300); Magnesium 2.2 mg/dL (1.6-2.3); Potassium 4.1 mmol/L (3.4-5.1); Sodium 140 mmol/L (137-145); Total Protein 7.9 g/dL (6.3-8.2)
[2019-09-06 13:51] LABS: Troponin I < 0.012 ng/mL (0.01-0.034)
[2019-09-06 14:05] LABS: B Type Natriuretic Peptide < 100 (<100)
[2019-09-06 14:17] LABS: TSH w/ Reflex to FT4 3.19 uIU/mL (0.47-4.68)
[2019-09-06 14:50] VITALS: BP 114/71; PULSE 69; RESP 17; O2SAT 97
--- NOTE | 2019-09-06 15:04 | PC.NURSE ---
reports slight burning with urination. Never noticed before today
== END 2019-09-06 15:21 | disposition home or self-care (01) ==
PROVIDERS: Nurse Practitioner; Emergency Provider Emergency Medicine
DX: R53.1 Weakness (principal); R07.9 Chest pain, unspecified
CPT/HCPCS: 36415; 71045; 80053; 81003; 82550; 83690; 83735; 83880; 84443; 84484; 85025; 85610; 85730; 93005; 93010; 99284; 99285

== ENCOUNTER → 2020-02-06 11:44 | Outpatient (CLI) | payer MEDICARE, BC, SELFPAY ==
[2020-02-07 08:50] LABS: COVID19 Sendout NOT DETECTED (Not Detect)
== END ==
PROVIDERS: Visit Provider Physician Assistant
DX: Z01.812 Encounter for preprocedural laboratory examination (principal)
CPT/HCPCS: 87635

== ENCOUNTER → 2020-04-07 17:31 | Outpatient (CLI) | payer MEDICARE, BC, SELFPAY ==
--- NOTE | 2020-04-07 17:34 | DI.RAD.S_ITS ---
PROCEDURE: XR HIP W PEL IF DONE LT 2V INDICATIONS: L hip pain, h/o arthritis, r/o fracture TECHNIQUE: AP pelvis with lateral view(s) of the left hip(s). COMPARISON: None. FINDINGS: Bones: No fractures or dislocations. Pelvic ring appears intact. No suspicious bony lesions. There is moderate bilateral hip joint space narrowing and periarticular osteophyte formation. The Soft tissues: The visualized bowel gas pattern is normal. No suspicious soft tissue calcifications. IMPRESSION: Bilateral hip osteoarthritis. No acute fracture. No osseous lesion. If symptoms and/or clinical suspicion for pathology persist, further assessment with repeat, or advanced imaging (e.g., CT, MRI, or bone scan) may be helpful for further assessment. Dictated by: Barbie Cedillo M.D. on 04/07/2020 at 17:53 Approved by: Barbie Cedillo M.D. on 04/07/2020 at 17:54
== END ==
PROVIDERS: Referring Provider Physician Assistant; Visit Provider Physician Assistant
DX: M25.552 Pain in left hip (principal); M16.0 Bilateral primary osteoarthritis of hip
CPT/HCPCS: 73502

== ENCOUNTER 2020-06-12 19:29 | Emergency (ER) | payer MEDICARE, BC, SELFPAY ==
[2020-06-12] VITALS (14 sets, daily range): BP systolic 126–184; BP diastolic 58–94; PULSE 65–79; RESP 15–23; TEMP 36.7; O2SAT 93–98
[2020-06-12] MEDS: ONDANSETRON 4 MG/2 ML INJ IV (19:49)
[2020-06-12] MEDS: SODIUM CHLORIDE 0.9% 1,000 ML 1000 ML IV (19:49)
--- NOTE | 2020-06-12 20:14 | PC.NURSE ---
Lab went in to draw blood and reported that pt was beginning to have chest pain. made aware
--- NOTE | 2020-06-12 20:24 | ED.NAVMDI ---
HPI - Nausea/Vomiting/Diarrhea General Chief complaint: Nausea/Vomiting/Diarrhea Stated complaint: NAUSEA AND VOMITING Time Seen by Provider: 06/12/20 20:15 Source: patient Mode of arrival: Wheelchair Limitations: no limitations History of Present Illness HPI Narrative: The patient had left knee replacement 18 May 2020. He was on tramadol until about 4 days ago for pain. He developed dry heaves 4 days ago. He still has nausea and vomiting. He denies diarrhea. He has no decreased urine output. He has a prior history of gastric bypass. He takes Nexium for GERD. He has no dyspnea with current symptoms. He developed epigastric chest pain after arrival. He has no history of coronary disease. He is on medications for hypertension. He has no associated back pain. He is a nonsmoker. He has not been using alcohol. Symptoms started 4 days ago after dinner. Related Data Home Medications Medication Instructions Recorded Confirmed testosterone 1.62 % (20.25 mg/1.25 TOP gram 04/27/18 04/07/20 gram) transdermal gel packet esomeprazole magnesium 40 mg 40 mg PO DAILY 09/18/18 04/07/20 capsule,delayed release CBD oil PO 03/09/19 04/07/20 montelukast 10 mg tablet 10 mg PO QPM 03/09/19 04/07/20 hydrochlorothiazide 25 mg PO DAILY 09/06/19 06/12/20 levothyroxine 62.5 mcg PO DAILY 09/06/19 04/07/20 scopolamine base 1 patch TRANSDERMAL Q3D PRN 06/12/20 06/12/20 Previous Rx's Medication Instructions Recorded colchicine 0.6 mg capsule 1.2 mg PO ONCE #3 cap 11/24/19 metoclopramide HCl [Reglan] 10 mg PO Q6H PRN #30 tab 06/12/20 Allergies Allergy/AdvReac Type Severity Reaction Status Date / Time No Known Drug Allergies Allergy Verified 04/07/20 16:51 Review of Systems Constitutional Constitutional: Denies chills, Denies fatigue, Denies fever(s), Reports lethargy and Denies weakness Eyes Comments: No complaints ENT Ears, Nose, Mouth, and Throat: Denies change in voice, Denies neck pain and Denies sore throat Comments: No complain Cardiovascular Cardiovascular: Denies dyspnea Comments: Developed epigastric pain after arrival in the ER. Respiratory Respiratory: Denies cough, Denies dyspnea and Denies wheezing Gastrointestinal Comments: Nausea vomiting for 4 days. Genitourinary Genitourinary: Denies dysuria and Denies urinary urgency Genitourinary: Denies dysuria and Denies urinary urgency Musculoskeletal Musculoskeletal: Denies neck pain Comments: No back pain. No significant extremity pain, other than left knee postop discomfort. He is ambulatory without assistance. Integumentary/Breasts Skin/Breast: Denies pruritus, Denies erythema, Denies rash and Denies wounds Neurologic Neurologic: Denies confusion, Denies sensory deficit and Denies weakness Psychiatric Psychiatric: Denies anxiety and Denies confusion Endocrine Endocrine: Denies fatigue and Denies flushing Hematologic/Lymphatic Hematologic/Lymphatic: Denies easy bruising Allergic/Immunologic Allergic/Immunologic: Denies wheezing Patient History Medical History (Updated 06/12/20 @ 22:59 by Dayo Tipton MD) Asthma (Chronic) Diverticular disease (Chronic) Eczema (Chronic) Foot pain (Chronic) GERD (gastroesophageal reflux disease) (Chronic) Gout (Chronic) Hypothyroidism (Chronic) Left hip pain (Acute) Low testosterone (Chronic) Measles (Resolved) Osteoarthritis (Chronic) Peripheral neuropathy (Chronic) Plantar warts (Chronic) Surgical History (Updated 06/12/20 @ 20:27 by Dayo Tipton MD) Anesthesia (Resolved) History of cholecystectomy (Resolved ~2008) History of knee surgery (Resolved ~2014) History of left knee replacement (Acute) Hx of laparoscopic gastric banding (Resolved) Sleep apnea (Chronic) Family History Father History of heart disease Mother Hypertension Brother History of heart disease Social History Smoking Status: Never smoker alcohol intake: current Smoking Status: Never smoker alcohol intake frequency: 0-2 drinks per day Substance Use Type: does not use Exam Initial Vital Signs Initial Vital Signs: Vital Signs Temperature 98.1 F 06/12/20 19:30 Pulse Rate 79 06/12/20 19:30 Respiratory Rate 18 06/12/20 19:30 Blood Pressure 184/89 H 06/12/20 19:30 Pulse Oximetry 98 06/12/20 19:30 Const General: cooperative and well developed Nutritional Appearance: well nourished [facility] Head: normocephalic and atraumatic Face and sinus: face symmetric and dry mucous membranes Mouth: oral mucosae normal and moist mucous membranes Throat: posterior oropharynx normal Eyes Conjunctivae: conjunctivae normal Neck Neck: No JVD Chest Chest: normal inspection of the chest Resp Effort & Inspection: normal respiratory effort and able to speak in complete sentences Auscultation: clear to auscultation bilaterally, no rales, no rhonchi and no wheezes Cardio Rate: regular rate Rhythm: regular rhythm Heart Sounds: S1 normal, S2 normal, no click, no gallops, no murmurs and no rubs Pulses: normal peripheral pulses GI Other: Obese. [place] epigastric tenderness with palpation. No distension. Normal bowel sounds. Back/Spine/Pelvis Back: No CVA tenderness Skin General: no rashes or lesions noted and No petechiae Neuro General: patient alert, patient oriented x3, gait normal and no focal motor deficits Speech: speech normal Extrem General: full ROM, no pedal edema and no calf tenderness Other: Recent left knee replacement, the site is healing well. Psych Appearance: well kempt Mental Status: mental status grossly normal Attitude: cooperative Thought Content: normal Judgment: judgment good Course Course Course Narrative: At the time of discharge the patient feels much better. His pain and nausea has resolved with the medications given. The Reglan seems to be particularly helpful for the patient. He has substernal pain, likely from GERD. There is no evidence of cardiac disease. He is advised to continue the Nexium. Reglan will be added. He should recheck with his doctor the next 10-14 days. Orders Ordered: ED Orders 06/12/20 19:44 EKG-12 Lead Stat 06/12/20 20:15 EKG-12 Lead Stat 06/12/20 20:20 Complete Blood Count AUTO DIFF Stat Comprehensive Metabolic Panel Stat Lipase Stat Partial Thromboplastin Time Stat Prothrombin Time INR Stat Troponin & CK Cardiac Panel Stat 06/12/20 20:29 UA Complete [Urinalysis and Microscopic] Stat Discontinued Medications Diphenhydramine HCl (Benadryl) 25 mg IV NOW ONE Stop: 06/12/20 20:23 Last Admin: 06/12/20 20:34 Dose: 25 mg Documented by: BRENDAN Sodium Chloride (Normal Saline 0.9%) 1,000 mls @ 1,000 mls/hr IV BOLUS ONE Stop: 06/12/20 20:43 Last Infusion: 06/12/20 21:40 Dose: 0 mls/hr Documented by: Admin: 06/12/20 19:49 Dose: 1,000 mls/hr Documented by: DARIO Sodium Chloride (Normal Saline 0.9%) 500 mls @ 1,000 mls/hr IV BOLUS ONE Stop: 06/12/20 20:51 Last Admin: 06/12/20 20:35 Dose: 1,000 mls/hr Documented by: BRENDAN Metoclopramide HCl (Reglan) 10 mg IV NOW ONE Stop: 06/12/20 20:23 Last Admin: 06/12/20 20:34 Dose: 10 mg Documented by: BRENDAN Morphine Sulfate (Morphine) 4 mg IV NOW ONE Stop: 06/12/20 20:23 Last Admin: 06/12/20 20:34 Dose: 4 mg Documented by: BRENDAN Ondansetron HCl (Zofran) 4 mg IV NOW ONE Stop: 06/12/20 19:45 Last Admin: 06/12/20 19:49 Dose: 4 mg Documented by: DARIO Pantoprazole Sodium (Protonix) 40 mg IV NOW ONE Stop: 06/12/20 20:23 Last Admin: 06/12/20 20:34 Dose: 40 mg Documented by: BRENDAN Vital Signs Vital signs: Vital Signs - 8 hr 06/12/20 19:30 06/12/20 19:52 06/12/20 20:00 Temperature 98.1 F Pulse Rate 79 66 68 Respiratory Rate 18 23 Blood Pressure 184/89 H Pulse Oximetry 98 98 97 06/12/20 20:01 06/12/20 20:30 06/12/20 20:31 Temperature Pulse Rate 68 66 66 Respiratory Rate 21 22 20 Blood Pressure 180/78 H 156/94 H Pulse Oximetry 98 98 96 06/12/20 21:00 06/12/20 21:01 06/12/20 21:30 Temperature Pulse Rate 71 69 73 Respiratory Rate 15 15 19 Blood Pressure 142/65 H Pulse Oximetry 95 95 93 06/12/20 21:31 06/12/20 22:00 06/12/20 22:01 Temperature Pulse Rate 68 68 65 Respiratory Rate 18 17 18 Blood Pressure 126/58 L 128/59 L Pulse Oximetry 93 95 95 MDM - Nausea/Vomiting/Diarrhea Lab Data Result diagrams: 06/12/20 20:20 06/12/20 20:20 Labs: Lab Results 06/12/20 06/12/20 06/12/20 Range/Units 20:20 20:20 20:20 WBC 10.6 (4.5-11.0) X10^3/uL RBC 5.07 (4.5-5.9) X10^6/uL Hgb 16.3 (13.5-17.5) g/dL Hct 47.0 (41-53) % MCV 92.7 (80-100) fL MCH 32.1 (26-34) PG MCHC 34.6 (30-36) % RDW 14.1 (11.6-14.8) % Plt Count 273 (150-400) X10^3/uL Neut % (Auto) 86.8 H (50-75) % Lymph % (Auto) 7.1 L (25-40) % [place] % (Auto) 5.2 (3-14) % Eos % (Auto) 0.6 L (2-4) % Baso % (Auto) 0.3 (0-2) % Neut # (Auto) 9200 H (9086-3455) /uL Lymph # (Auto) 800 L (6207-3223) /uL [place] # (Auto) 600 (0-900) /uL Eos # (Auto) 100 (0-450) /uL Baso # (Auto) 0 (0-100) /uL PT 13.4 H (10.1-12.7) SECONDS INR 1.2 (0.9-1.3) APTT 36 (26.4-36.2) SECONDS Sodium 136 L (137-145) mmol/L Potassium 4.7 (3.4-5.1) mmol/L Chloride 103 (98-107) mmol/L Carbon Dioxide 30 (22-32) mmol/L BUN 13 (9-20) mg/dL Creatinine 1.01 (0.66-1.25) mg/dL Estimated GFR > 60.0 (>60) mL/min BUN/Creatinine Ratio 12.9 (6-22) Glucose 131 H (80-110) mg/dL Calcium 8.9 (8.4-10.2) mg/dL Total Bilirubin 1.8 H (0.2-1.3) mg/dL AST 27 (17-59) IU/L ALT 29 (<50) IU/L Alkaline Phosphatase 150 H (38-126) U/L Total Creatine Kinase (55-170) U/L CK-MB (CK-2) CK-MB (CK-2) Rel Index Troponin I (0.01-0.034) ng/mL Total Protein 7.2 (6.3-8.2) g/dL Albumin 4.1 (3.5-5.0) g/dL Globulin 3.1 (1.7-4.1) g/dL Albumin/Globulin Ratio 1.3 (1.0-2.8) Lipase 129 (23-300) U/L Urine Color Urine Appearance Urine pH (4.5-8.0) Ur Specific [place] (1.000-1.035) Urine Protein (Negative) Urine Glucose (UA) (Negative) g/dL Urine Ketones (NEGATIVE) Urine Occult Blood (Negative) Urine Nitrate (Negative) Urine Bilirubin (NEGATIVE) Urine Urobilinogen (0.2) E.U./dL Ur Leukocyte Esterase (NEGATIVE) Urine RBC (0-5/HPF) Urine WBC (0-5/HPF) Urine Bacteria (None) Urine Mucus (Negative) Ur Culture Indicated? 06/12/20 06/12/20 Range/Units 20:20 20:29 WBC (4.5-11.0) X10^3/uL RBC (4.5-5.9) X10^6/uL Hgb (13.5-17.5) g/dL Hct (41-53) % MCV (80-100) fL MCH (26-34) PG MCHC (30-36) % RDW (11.6-14.8) % Plt Count (150-400) X10^3/uL Neut % (Auto) (50-75) % Lymph % (Auto) (25-40) % [place] % (Auto) (3-14) % Eos % (Auto) (2-4) % Baso % (Auto) (0-2) % Neut # (Auto) (2770-9100) /uL Lymph # (Auto) (1933-2705) /uL [place] # (Auto) (0-900) /uL Eos # (Auto) (0-450) /uL Baso # (Auto) (0-100) /uL PT (10.1-12.7) SECONDS INR (0.9-1.3) APTT (26.4-36.2) SECONDS Sodium (137-145) mmol/L Potassium (3.4-5.1) mmol/L Chloride (98-107) mmol/L Carbon Dioxide (22-32) mmol/L BUN (9-20) mg/dL Creatinine (0.66-1.25) mg/dL Estimated GFR (>60) mL/min BUN/Creatinine Ratio (6-22) Glucose (80-110) mg/dL Calcium (8.4-10.2) mg/dL Total Bilirubin (0.2-1.3) mg/dL AST (17-59) IU/L ALT (<50) IU/L Alkaline Phosphatase (38-126) U/L Total Creatine Kinase 71 (55-170) U/L CK-MB (CK-2) TNP CK-MB (CK-2) Rel Index TNP Troponin I < 0.012 (0.01-0.034) ng/mL Total Protein (6.3-8.2) g/dL Albumin (3.5-5.0) g/dL Globulin (1.7-4.1) g/dL Albumin/Globulin Ratio (1.0-2.8) Lipase (23-300) U/L Urine Color Yellow Urine Appearance Clear Urine pH 6.0 (4.5-8.0) Ur Specific [place] 1.025 (1.000-1.035) Urine Protein 1+ H (Negative) Urine Glucose (UA) Negative (Negative) g/dL Urine Ketones 1+ H (NEGATIVE) Urine Occult Blood 2+ H (Negative) Urine Nitrate Negative (Negative) Urine Bilirubin Negative (NEGATIVE) Urine Urobilinogen 1.0 (0.2) E.U./dL Ur Leukocyte Esterase Negative (NEGATIVE) Urine RBC 1-5/hpf (0-5/HPF) Urine WBC 0-1/hpf (0-5/HPF) Urine Bacteria None seen (None) Urine Mucus 1+ H (Negative) Ur Culture Indicated? Cult not indicated Urine Dip Bedside Urine Glucose Negative Bedside Urine Bilirubin - Negative Bedside Urine Ketone + 15 Urine Specific [place] 1.030 Bedside Urine Occult Blood ++ Bedside Urine pH 6.0 Bedside Urine Protein + 30 Bedside Urine Urobilinogen - Negative Bedside Urine Nitrite - Negative Bedside Urine Leukocytes - Negative Esterase ECG Data Attestation: I personally reviewed and interpreted this ECG as follows: (EKG 1. Normal sinus rhythm rate 70 beats per minute. Poor R-wave progression to the anterior leads. Old inferior ID. Normal intervals. No acute ST T wave changes. EKG 2. Normal sinus rhythm rate 63 beats per minute. No changes from the initial EKG. ) Prior ECG tracings: available for review (No changes from August 2019 EKG.) Discharge Plan Departure Patient Disposition: Home Clinical Impression: Chest pain due to GERD Instructions: DI for Gastroesophageal Reflux Disease (GERD) Activity Restrictions/Additional Instructions: Continue your current medications. Reglan 10 mg 3 times daily. You should initially be on bland diet, advance your diet as tolerated. Recheck with your doctor in 10-14 days. Return the ER as necessary. Prescriptions: New metoclopramide HCl [Reglan] 10 mg tablet 10 mg PO Q6H PRN (Reason: nausea and vomiting) Qty: 30 RF: 0 No Action testosterone [AndroGel] 1.62 % (20.25 mg/1.25 gram) gel in packet TOP RF: 0 esomeprazole magnesium [Nexium] 40 mg capsule,delayed release(DR/EC) 40 mg PO DAILY RF: 0 colchicine 0.6 mg capsule 1.2 mg PO ONCE Qty: 3 RF: 0 montelukast 10 mg tablet 10 mg PO QPM RF: 0 CBD oil PO RF: 0 levothyroxine 125 mcg Tablet 62.5 mcg PO DAILY RF: 0 hydrochlorothiazide 25 mg Tablet 25 mg PO DAILY RF: 0 scopolamine base 1 mg over 3 days patch 3 day 1 patch transdermal Q3D PRN (Reason: Nausea) RF: 0
[2020-06-12] MEDS: diphenhydrAMINE 50 MG/ML VIAL 25 MG IV (20:34)
[2020-06-12] MEDS: PANTOPRAZOLE 40 MG VIAL IV (20:34)
[2020-06-12] MEDS: MORPHINE 4 MG/ML INJ IV (20:34)
[2020-06-12] MEDS: METOCLOPRAMIDE 10 MG/2 ML INJ IV (20:34)
[2020-06-12 20:35] LABS: Add Manual Diff / Slide Review NO; Basophils Absolute Auto 0 /uL (0-100); Basophils Percent Auto 0.3 % (0-2); Eosinophils Absolute Auto 100 /uL (0-450); Eosinophils Percent Auto 0.6 % (2-4); Hemoglobin 16.3 g/dL (13.5-17.5); Lymphocytes Absolute Auto 800 /uL (1100-4500); Lymphocytes Percent Auto 7.1 % (25-40); Mean Corpuscular HGB Conc 34.6 % (30-36); Mean Corpuscular Hemoglobin 32.1 PG (26-34); Mean Corpuscular Volume 92.7 fL (80-100); Monocytes Absolute Auto 600 /uL (0-900); Monocytes Percent Auto 5.2 % (3-14); Neutrophils Absolute Auto 9200 /uL (1500-7000); Neutrophils Percent Auto 86.8 % (50-75); Platelet Count 273 X10^3/uL (150-400); Red Blood Cell Count 5.07 X10^6/uL (4.5-5.9); Red Cell Distribution Width 14.1 % (11.6-14.8); White Blood Cell Count 10.6 X10^3/uL (4.5-11.0)
[2020-06-12] MEDS: SODIUM CHLORIDE 0.9% 500 ML 1000 ML IV (20:35)
[2020-06-12 20:40] LABS: Alanine Aminotransferase 29 IU/L (<50); Albumin 4.1 g/dL (3.5-5.0); Albumin Globulin Ratio 1.3 (1.0-2.8); Alkaline Phosphatase 150 U/L (38-126); Aspartate Aminotransferase 27 IU/L (17-59); BUN Creatinine Ratio 12.9 (6-22); Bilirubin Total 1.8 mg/dL (0.2-1.3); Blood Urea Nitrogen 13 mg/dL (9-20); Calcium 8.9 mg/dL (8.4-10.2); Carbon Dioxide 30 mmol/L (22-32); Chloride 103 mmol/L (98-107); Estimated Glomerular Filt Rate > 60.0 mL/min (>60); Globulin 3.1 g/dL (1.7-4.1); Glucose 131 mg/dL (80-110); HEMOLYSIS 20 (0-50); Lipase 129 U/L (23-300); Potassium 4.7 mmol/L (3.4-5.1); Sodium 136 mmol/L (137-145); Total Protein 7.2 g/dL (6.3-8.2)
[2020-06-12 20:41] LABS: Creatine Kinase 71 U/L (55-170)
[2020-06-12 20:45] LABS: INR 1.2 (0.9-1.3); Prothrombin Time 13.4 SECONDS (10.1-12.7)
[2020-06-12 20:48] LABS: PTT Partial Thromboplastin Tim 36 SECONDS (26.4-36.2)
[2020-06-12 20:52] LABS: Troponin I < 0.012 ng/mL (0.01-0.034)
[2020-06-12 20:54] LABS: Bacteria Urine None Seen
[2020-06-12 20:59] LABS: Appearance Urine UA CLEAR; Bilirubin Urine UA NEGATIVE (NEGATIVE); Color Urine UA YELLOW; Glucose Urine UA NEGATIVE (Negative); Ketones Urine UA 1+ (NEGATIVE); Leukocyte Esterase Urine UA NEGATIVE (NEGATIVE); Nitrite Urine UA NEGATIVE (Negative); Occult Blood Urine UA 2+ (Negative); Protein Urine UA 1+ (Negative); Specific Gravity Urine UA 1.025 (1.000-1.035)
[2020-06-12 21:15] LABS: RBC Urine 1-5/HPF (0-5/HPF); WBC Urine 0-1/HPF (0-5/HPF)
[2020-06-12 21:16] LABS: Culture Indicated Urine Cult Not Indicated; Mucus Urine 1+ (Negative)
== END 2020-06-12 23:06 | disposition home or self-care (01) ==
PROVIDERS: Nurse Practitioner Family; Emergency Provider Emergency Medicine
DX: R07.89 Other chest pain (principal); K21.9 Gastro-esophageal reflux disease without esophagitis; R10.13 Epigastric pain; I10 Essential (primary) hypertension; R11.2 Nausea with vomiting, unspecified
CPT/HCPCS: 36415; 80053; 81001; 81003; 82550; 83690; 84484; 85025; 85610; 85730; 93005; 93010; 96361; 96374; 96375; 99284; C9113; J1200; J2270; J2405; J2765

== ENCOUNTER 2020-06-14 09:35 | Emergency (ER) | payer MEDICARE, BC, SELFPAY ==
[2020-06-14] VITALS (17 sets, daily range): BP systolic 128–184; BP diastolic 71–92; PULSE 61–110; RESP 14–18; O2SAT 92–99; BMI 38.0
--- NOTE | 2020-06-14 09:48 | ED.NAVMDI ---
HPI - Nausea/Vomiting/Diarrhea General Chief complaint: Nausea/Vomiting/Diarrhea Stated complaint: nausea/vomiting/weakness/ came here 06/12 Time Seen by Provider: 06/14/20 09:35 Source: patient Mode of arrival: Ambulatory Limitations: no limitations History of Present Illness HPI Narrative: 69-year-old male nonsmoker with history of gout, GERD, hypothyroidism and multiple prior, complex abdominal surgeries presents with ongoing nausea, vomiting and a few episodes of diarrhea. He denies any fever chills. He denies any dietary change. He denies any chest pain, shortness of breath or abdominal pain. He has been having the symptoms, gradually worsening over the past 4-5 days. He had been seen once few days ago and felt much better after some fluids and antiemetics. He states that he is now feeling a bit weak and is having increasing difficulty keeping food and drink down. He denies recent travel or exposure to persons known to have COVID-19. The patient had been on a steady does of Ultram for at least three weeks and stopped cold turkey on and his symptoms started 2 days later. He states he was much worse when he was in here over the weekend. He states all of his symptoms completely resolved for awhile after he was given Morphine at the last visit. He took a few doses of Pepto over the weekend and had a least one dark watery stool MD complaint: nausea, vomiting and diarrhea Onset (ago): day(s) Description of Vomiting: food contents Description of Diarrhea: other (dark but watery) Related Data Home Medications Medication Instructions Recorded Confirmed testosterone 1.62 % (20.25 mg/1.25 TOP gram 04/27/18 04/07/20 gram) transdermal gel packet esomeprazole magnesium 40 mg 40 mg PO DAILY 09/18/18 04/07/20 capsule,delayed release CBD oil PO 03/09/19 04/07/20 montelukast 10 mg tablet 10 mg PO QPM 03/09/19 04/07/20 hydrochlorothiazide 25 mg PO DAILY 09/06/19 06/12/20 levothyroxine 62.5 mcg PO DAILY 09/06/19 04/07/20 scopolamine base 1 patch TRANSDERMAL Q3D PRN 06/12/20 06/12/20 Previous Rx's Medication Instructions Recorded colchicine 0.6 mg capsule 1.2 mg PO ONCE #3 cap 11/24/19 metoclopramide HCl [Reglan] 10 mg PO Q6H PRN #30 tab 06/12/20 ondansetron 4 mg PO TID-QID PRN #10 tab 06/14/20 Allergies Allergy/AdvReac Type Severity Reaction Status Date / Time No Known Drug Allergies Allergy Verified 04/07/20 16:51 Review of Systems Constitutional Constitutional: Denies chills, Denies fatigue, Denies fever(s), Denies frequent falls, Denies lethargy and Reports weakness Eyes Eyes: Denies change in vision, Denies eye discharge, Denies irritation and Denies loss of vision ENT Ears, Nose, Mouth, and Throat: Denies change in voice, Denies dizziness, Denies neck pain, Denies sore throat and Denies throat swelling Cardiovascular Cardiovascular: Denies chest pain, Denies irregular heart rhythm, Denies lightheadedness, Denies palpitations, Denies dyspnea, Denies dyspnea on exertion and Denies orthopnea Respiratory Respiratory: Denies cough, Denies dyspnea, Denies dyspnea on exertion and Denies wheezing Gastrointestinal Gastrointestinal: Denies abdominal pain, Denies change in bowel habits, Reports diarrhea, Reports nausea and Reports vomiting Musculoskeletal Musculoskeletal: Denies neck pain and Denies numbness Integumentary/Breasts Skin/Breast: Denies pruritus, Denies erythema, Denies rash and Denies wounds Neurologic Neurologic: Denies behavioral changes, Denies confusion, Denies dizziness, Denies frequent falls, Denies loss of vision, Denies numbness and Reports weakness Psychiatric Psychiatric: Denies anxiety, Denies behavioral changes, Denies confusion, Denies depression, Denies homicidal ideation and Denies suicidal ideation Endocrine Endocrine: Denies fatigue, Denies flushing and Denies palpitations Hematologic/Lymphatic Hematologic/Lymphatic: Denies easy bruising Allergic/Immunologic Allergic/Immunologic: Denies urticaria, Denies throat swelling and Denies wheezing Patient History Medical History Asthma (Chronic) Diverticular disease (Chronic) Eczema (Chronic) Foot pain (Chronic) GERD (gastroesophageal reflux disease) (Chronic) Gout (Chronic) Hypothyroidism (Chronic) Left hip pain (Acute) Low testosterone (Chronic) Measles (Resolved) Osteoarthritis (Chronic) Peripheral neuropathy (Chronic) Plantar warts (Chronic) Surgical History Anesthesia (Resolved) History of cholecystectomy (Resolved ~2008) History of knee surgery (Resolved ~2014) History of left knee replacement (Acute) Hx of laparoscopic gastric banding (Resolved) Sleep apnea (Chronic) Family History Father History of heart disease Mother Hypertension Brother History of heart disease Social History Smoking Status: Never smoker alcohol intake: current Smoking Status: Never smoker alcohol intake frequency: 0-2 drinks per day Substance Use Type: does not use Exam Narrative Exam Narrative: GENERAL: [69] year old patient appears stated age. Well-nourished, well-developed patient, in mild distress. HEAD: Atraumatic. Normocephalic. EYES: Pupils equal round and reactive. Extraocular motions intact. No scleral icterus. No injection or drainage. ENT: Dry mucous membranes Nose without bleeding, purulent drainage. Throat without erythema, tonsillar hypertrophy or exudate. Airway patent. NECK: Trachea midline. Non tender CARDIOVASCULAR: Regular rate and rhythm without murmurs, gallops, or rubs. RESPIRATORY: Clear to auscultation. Breath sounds equal bilaterally. No wheezes, rales, or rhonchi. GASTROINTESTINAL: Abdomen soft, non-tender, nondistended. RECTAL: light brown stool, no blood. Heme NEG EXTREMITIES: No edema or joint tenderness. BACK: Nontender without deformity or crepitance. No flank tenderness. NEURO: AOx3. SKIN: No rash or erythema of visible areas Initial Vital Signs Initial Vital Signs: Vital Signs Pulse Rate 78 06/14/20 09:41 Respiratory Rate 18 06/14/20 09:41 Blood Pressure 177/92 H 06/14/20 09:41 Pulse Oximetry 96 06/14/20 09:41 Course Orders Ordered: ED Orders 06/14/20 09:50 Urine Microscopic Stat 06/14/20 10:04 Complete Blood Count AUTO DIFF Stat Comprehensive Metabolic Panel Stat Lipase Stat 06/14/20 10:36 CT abdomen pelvis w con Stat Sodium Chloride (Normal Saline 0.9%) 1,000 mls @ 150 mls/hr IV CONT JESSENIA Last Infusion: 06/14/20 12:58 Dose: 0 mls/hr Documented by: Infusion: 06/14/20 12:30 Dose: 0 mls/hr Documented by: Admin: 06/14/20 10:10 Dose: 150 mls/hr Documented by: JUSTYNA Discontinued Medications Al Hydrox/Mg Hydrox/Simethicone 20 ml/ Lidocaine HCl 15 ml 0 ml PO NOW ONE Stop: 06/14/20 11:26 Last Admin: 06/14/20 11:31 Dose: 35 ml Documented by: DARIO Lorazepam (Ativan) 0.5 mg IV NOW ONE Stop: 06/14/20 10:55 Last Admin: 06/14/20 10:57 Dose: 0.5 mg Documented by: DARIO Metoclopramide HCl (Reglan) 10 mg IV NOW ONE Stop: 06/14/20 11:26 Last Admin: 06/14/20 11:31 Dose: 10 mg Documented by: DARIO Ondansetron HCl (Zofran) 4 mg IV NOW ONE Stop: 06/14/20 09:50 Last Admin: 06/14/20 10:10 Dose: 4 mg Documented by: JUSTYNA Reevaluation(s) Reevaluation #1: Significant improvement after above-stated therapies Vital Signs Vital signs: Vital Signs - 8 hr 06/14/20 09:41 06/14/20 09:58 06/14/20 09:59 Pulse Rate 78 75 77 Pulse Rate [Orthostatic Lying] Pulse Rate [Orthostatic Sitting] Pulse Rate [Orthostatic Standing] Respiratory Rate 18 Blood Pressure 177/92 H 169/76 H Blood Pressure [Orthostatic Lying] Blood Pressure [Orthostatic Sitting] Blood Pressure [Orthostatic Standing] Pulse Oximetry 96 96 95 06/14/20 10:00 06/14/20 10:34 06/14/20 10:35 Pulse Rate 73 73 72 Pulse Rate [Orthostatic Lying] Pulse Rate [Orthostatic Sitting] Pulse Rate [Orthostatic Standing] Respiratory Rate 16 Blood Pressure 161/71 H 165/79 H Blood Pressure [Orthostatic Lying] Blood Pressure [Orthostatic Sitting] Blood Pressure [Orthostatic Standing] Pulse Oximetry 95 98 96 06/14/20 11:00 06/14/20 11:30 06/14/20 11:31 Pulse Rate 71 68 66 Pulse Rate [Orthostatic Lying] Pulse Rate [Orthostatic Sitting] Pulse Rate [Orthostatic Standing] Respiratory Rate 14 Blood Pressure 173/84 H 165/81 H Blood Pressure [Orthostatic Lying] Blood Pressure [Orthostatic Sitting] Blood Pressure [Orthostatic Standing] Pulse Oximetry 96 92 94 06/14/20 12:00 06/14/20 12:01 06/14/20 12:30 Pulse Rate 61 76 74 Pulse Rate [Orthostatic Lying] Pulse Rate [Orthostatic Sitting] Pulse Rate [Orthostatic Standing] Respiratory Rate 16 Blood Pressure 137/71 Blood Pressure [Orthostatic Lying] Blood Pressure [Orthostatic Sitting] Blood Pressure [Orthostatic Standing] Pulse Oximetry 95 97 95 06/14/20 12:32 06/14/20 12:34 06/14/20 12:54 Pulse Rate 75 110 H Pulse Rate [Orthostatic Lying] 76 Pulse Rate [Orthostatic Sitting] 85 Pulse Rate [Orthostatic Standing] 100 H Respiratory Rate Blood Pressure 136/72 184/83 H 130/77 Blood Pressure [Orthostatic Lying] 140/76 Blood Pressure [Orthostatic Sitting] 136/72 Blood Pressure [Orthostatic Standing] 184/83 H Pulse Oximetry 96 95 06/14/20 13:00 06/14/20 13:56 Pulse Rate 101 H 70 Pulse Rate [Orthostatic Lying] Pulse Rate [Orthostatic Sitting] Pulse Rate [Orthostatic Standing] Respiratory Rate 16 Blood Pressure 128/77 Blood Pressure [Orthostatic Lying] Blood Pressure [Orthostatic Sitting] Blood Pressure [Orthostatic Standing] Pulse Oximetry 93 99 MDM - Nausea/Vomiting/Diarrhea Lab Data Result diagrams: 06/14/20 10:04 06/14/20 10:04 Labs: Lab Results 06/14/20 06/14/20 06/14/20 Range/Units 09:50 10:04 10:04 WBC 12.6 H (4.5-11.0) X10^3/uL RBC 5.36 (4.5-5.9) X10^6/uL Hgb 16.8 (13.5-17.5) g/dL Hct 50.0 (41-53) % MCV 93.4 (80-100) fL MCH 31.3 (26-34) PG MCHC 33.5 (30-36) % RDW 14.1 (11.6-14.8) % Plt Count 303 (150-400) X10^3/uL Neut % (Auto) 82.7 H (50-75) % Lymph % (Auto) 7.4 L (25-40) % [place] % (Auto) 9.1 (3-14) % Eos % (Auto) 0.4 L (2-4) % Baso % (Auto) 0.4 (0-2) % Neut # (Auto) 52992 H (1170-4327) /uL Lymph # (Auto) 900 L (8540-0492) /uL [place] # (Auto) 1200 H (0-900) /uL Eos # (Auto) 100 (0-450) /uL Baso # (Auto) 100 (0-100) /uL Sodium 133 L (137-145) mmol/L Potassium 4.2 (3.4-5.1) mmol/L Chloride 100 (98-107) mmol/L Carbon Dioxide 25 (22-32) mmol/L BUN 13 (9-20) mg/dL Creatinine 0.93 (0.66-1.25) mg/dL Estimated GFR > 60.0 (>60) mL/min BUN/Creatinine Ratio 14.0 (6-22) Glucose 130 H (80-110) mg/dL Calcium 9.0 (8.4-10.2) mg/dL Total Bilirubin 2.2 H (0.2-1.3) mg/dL AST 37 (17-59) IU/L ALT 28 (<50) IU/L Alkaline Phosphatase 144 H (38-126) U/L Total Protein 7.9 (6.3-8.2) g/dL Albumin 4.6 (3.5-5.0) g/dL Globulin 3.3 (1.7-4.1) g/dL Albumin/Globulin Ratio 1.4 (1.0-2.8) Lipase 176 (23-300) U/L Urine RBC 1-5/hpf (0-5/HPF) Urine WBC 1-5/hpf (0-5/HPF) Ur Squamous Epith Cells 5-10 /hpf H (0-5/HPF) Urine Bacteria None seen (None) Ur Culture Indicated? Cult not indicated Urine Dip Bedside Urine Glucose Negative Bedside Urine Bilirubin - Negative Bedside Urine Ketone +/- 5 Urine Specific [place] 1.025 Bedside Urine Occult Blood ++ Bedside Urine pH 6.0 Bedside Urine Protein +/- 15 Bedside Urine Urobilinogen - Negative Bedside Urine Nitrite - Negative Bedside Urine Leukocytes - Negative Esterase Imaging Data CT scan - abdomen/pelvis: Radiologist's Impression: Chart Viewer Diagnostics DATE TYPE STATUS REF RANGE/AUTHOR Hx 06/14/20 10:36 Bird Bender 04/07/20 17:34 Barbie Cedillo 09/06/19 13:16 Odell Heath 09/18/18 11:54 Odell Heath 05/06/18 20:20 Chris Hughes Sania Manjosé Salomon 69, M1950 [facility] ER, Main ED R05 177.8cm 120.202kg BMI: 38.0kg/m? Nausea/Vomiting/Diarrhea Search Chart No Data to Display NF - Not included in interaction checking ONSET Today 13:56 DonovanSteven Salomon 69 M [address] [address] [address] Scan Report Signed Patient: DonovanSteven R#: [id number] : [id number]:[id number] Age/Sex: 69 / MDate of Service: 06/14/20 Loc: ED Accession Number: [id number] Procedure: CT abdomen pelvis w con Ordering Provider: Dennys Cornelius D.O. PROCEDURE: CT ABDOMEN PELVIS W CON COMPARISON: [facility], CT, CT ABDOMEN PELVIS W CON, 05/06/2018, 21:23. INDICATIONS: persistent vomiting, unable to keep PO, gastric bypass/sleev FINDINGS: Image quality: Excellent. Lung bases: The lung bases demonstrate atelectasis in the left lung base, but are otherwise clear. Heart size is normal. Solid organs: Liver: The liver has no mass or intrahepatic biliary ductal dilatation. The portal vein and hepatic veins are patent. Biliary: Status post cholecystectomy. Pancreas: The pancreas has no mass or ductal dilatation. There is no surrounding inflammation. Spleen: Normal size. There are no masses. Adrenals: No hypertrophy or nodules. Kidneys: No obstructive calculus or hydronephrosis. No solid mass. The right kidney has a 4 centimeters cyst of the midpole. The left kidney has multiple cysts measuring up to 2 centimeters. The left kidney has several vascular calcifications in the hilum. No collecting system calcifications. Peritoneum and bowel: There is a small hiatal hernia. There are postoperative changes at the gastroesophageal junction. The small bowel has a normal caliber and appearance. The terminal ileum is normal. The large bowel has a normal caliber and appearance. The appendix is normal. No free fluid or air. Nodes and vessels: No retroperitoneal or mesenteric adenopathy by size criteria. The aorta has atherosclerotic calcifications with no aneurysmal dilatation. Miscellaneous: No abdominal wall mass or hernia. PELVIS: Genitourinary: The bladder has no wall thickening or mass. No bladder calcifications. Miscellaneous: No inguinal hernias or adenopathy. Bones: Degenerative changes with no focal abnormality. No vertebral body compression fractures. IMPRESSION: 1. No acute abdominal or pelvic abnormality. 2. Normal appendix and no nephroureteral calculi. 3. Diverticulosis without evidence of diverticulitis. 4. Bilateral simple renal cysts. 5. Postoperative changes of gastric bypass and cholecystectomy. Dictated by: Bird Bender M.D. on 06/14/2020 at 10:41 Approved by: Bird Bender M.D. on 06/14/2020 at 10:50 MDM Narrative Medical decision making narrative: Multiple etiologies for patient's symptoms considered including: [Postsurgical complication versus opioid withdrawal versus bowel obstruction versus electrolyte abnormality versus other] Patient's symptoms improved over duration of stay with above-stated therapies. Findings and discharge diagnosis discussed with patient/family followed by verbalization of understanding Return precautions discussed with patient/family whom verbalize understanding. Discharge Plan Departure Patient Disposition: Home Clinical Impression: Opioid withdrawal Nausea & vomiting Qualifiers: Vomiting type: unspecified Vomiting Intractability: non-intractable Qualified Code(s): R11.2 - Nausea with vomiting, unspecified Discharge Date/Time: 06/14/20 13:57 Instructions: DI for Dehydration -- Adult, Nausea and Vomiting-Adult Activity Restrictions/Additional Instructions: *You have been diagnosed with [nausea, vomiting, diarrhea with mild dehydration, very likely a consequence of withdrawal symptoms from opioids (tramadol)] *What to do: *Take medications as directed including the prescription given to you a few days ago by Dr. Tipton. The symptoms are very likely to gradually improve on their own over the next few days, but the prescriptions given are likely to help with this. *Follow up with your primary care provider in 2-3 days, call for an appointment. Let them know you were seen in the Emergency Department and that we ask that you be seen in follow up *Return to ER if you should have any new, worsening or concerning symptoms 1. Drink plenty of fluids with frequent small sips. 2. For the next 24 hours a clear liquid diet is advised. After that please employ a B.R.A.T. diet which would include bananas, rice, apples, toast and other mild food items Prescriptions: New ondansetron 4 mg tablet,disintegrating 4 mg PO TID-QID PRN (Reason: nausea and vomiting) Qty: 10 RF: 0 No Action testosterone [AndroGel] 1.62 % (20.25 mg/1.25 gram) gel in packet TOP RF: 0 esomeprazole magnesium [Nexium] 40 mg capsule,delayed release(DR/EC) 40 mg PO DAILY RF: 0 colchicine 0.6 mg capsule 1.2 mg PO ONCE Qty: 3 RF: 0 montelukast 10 mg tablet 10 mg PO QPM RF: 0 CBD oil PO RF: 0 levothyroxine 125 mcg Tablet 62.5 mcg PO DAILY RF: 0 hydrochlorothiazide 25 mg Tablet 25 mg PO DAILY RF: 0 scopolamine base 1 mg over 3 days patch 3 day 1 patch transdermal Q3D PRN (Reason: Nausea) RF: 0 metoclopramide HCl [Reglan] 10 mg tablet 10 mg PO Q6H PRN (Reason: nausea and vomiting) Qty: 30 RF: 0
[2020-06-14] MEDS: SODIUM CHLORIDE 0.9% 1,000 ML 150 ML IV (10:10)
[2020-06-14] MEDS: ONDANSETRON 4 MG/2 ML INJ IV (10:10)
[2020-06-14 10:11] LABS: Add Manual Diff / Slide Review NO; Basophils Absolute Auto 100 /uL (0-100); Basophils Percent Auto 0.4 % (0-2); Eosinophils Absolute Auto 100 /uL (0-450); Eosinophils Percent Auto 0.4 % (2-4); Hemoglobin 16.8 g/dL (13.5-17.5); Lymphocytes Absolute Auto 900 /uL (1100-4500); Lymphocytes Percent Auto 7.4 % (25-40); Mean Corpuscular HGB Conc 33.5 % (30-36); Mean Corpuscular Hemoglobin 31.3 PG (26-34); Mean Corpuscular Volume 93.4 fL (80-100); Monocytes Absolute Auto 1200 /uL (0-900); Monocytes Percent Auto 9.1 % (3-14); Neutrophils Absolute Auto 10400 /uL (1500-7000); Neutrophils Percent Auto 82.7 % (50-75); Platelet Count 303 X10^3/uL (150-400); Red Blood Cell Count 5.36 X10^6/uL (4.5-5.9); Red Cell Distribution Width 14.1 % (11.6-14.8); White Blood Cell Count 12.6 X10^3/uL (4.5-11.0)
[2020-06-14 10:13] LABS: Bacteria Urine None Seen
[2020-06-14 10:21] LABS: Alanine Aminotransferase 28 IU/L (<50); Albumin 4.6 g/dL (3.5-5.0); Albumin Globulin Ratio 1.4 (1.0-2.8); Alkaline Phosphatase 144 U/L (38-126); Aspartate Aminotransferase 37 IU/L (17-59); Bilirubin Total 2.2 mg/dL (0.2-1.3); Blood Urea Nitrogen 13 mg/dL (9-20); Carbon Dioxide 25 mmol/L (22-32); Chloride 100 mmol/L (98-107); Estimated Glomerular Filt Rate > 60.0 mL/min (>60); Globulin 3.3 g/dL (1.7-4.1); Glucose 130 mg/dL (80-110); Lipase 176 U/L (23-300); Potassium 4.2 mmol/L (3.4-5.1); Sodium 133 mmol/L (137-145); Total Protein 7.9 g/dL (6.3-8.2)
[2020-06-14 10:21] LABS: Culture Indicated Urine Cult Not Indicated; RBC Urine 1-5/HPF (0-5/HPF); Squamous Epithelial Cell Urine 5-10 /HPF (0-5/HPF); WBC Urine 1-5/HPF (0-5/HPF)
[2020-06-14 10:22] LABS: HEMOLYSIS 86 (0-50)
--- NOTE | 2020-06-14 10:36 | DI.CT.S_ITS ---
PROCEDURE: CT ABDOMEN PELVIS W CON COMPARISON: [facility], CT, CT ABDOMEN PELVIS W CON, 05/06/2018, 21:23. INDICATIONS: persistent vomiting, unable to keep PO, gastric bypass/sleev FINDINGS: Image quality: Excellent. Lung bases: The lung bases demonstrate atelectasis in the left lung base, but are otherwise clear. Heart size is normal. Solid organs: Liver: The liver has no mass or intrahepatic biliary ductal dilatation. The portal vein and hepatic veins are patent. Biliary: Status post cholecystectomy. Pancreas: The pancreas has no mass or ductal dilatation. There is no surrounding inflammation. Spleen: Normal size. There are no masses. Adrenals: No hypertrophy or nodules. Kidneys: No obstructive calculus or hydronephrosis. No solid mass. The right kidney has a 4 centimeters cyst of the midpole. The left kidney has multiple cysts measuring up to 2 centimeters. The left kidney has several vascular calcifications in the hilum. No collecting system calcifications. Peritoneum and bowel: There is a small hiatal hernia. There are postoperative changes at the gastroesophageal junction. The small bowel has a normal caliber and appearance. The terminal ileum is normal. The large bowel has a normal caliber and appearance. The appendix is normal. No free fluid or air. Nodes and vessels: No retroperitoneal or mesenteric adenopathy by size criteria. The aorta has atherosclerotic calcifications with no aneurysmal dilatation. Miscellaneous: No abdominal wall mass or hernia. PELVIS: Genitourinary: The bladder has no wall thickening or mass. No bladder calcifications. Miscellaneous: No inguinal hernias or adenopathy. Bones: Degenerative changes with no focal abnormality. No vertebral body compression fractures. IMPRESSION: 1. No acute abdominal or pelvic abnormality. 2. Normal appendix and no nephroureteral calculi. 3. Diverticulosis without evidence of diverticulitis. 4. Bilateral simple renal cysts. 5. Postoperative changes of gastric bypass and cholecystectomy. Dictated by: Bird Bender M.D. on 06/14/2020 at 10:41 Approved by: Bird Bender M.D. on 06/14/2020 at 10:50
[2020-06-14] MEDS: LORazepam 2 MG/ML INJ 0.5 MG IV (10:57)
[2020-06-14] MEDS: METOCLOPRAMIDE 10 MG/2 ML INJ IV (11:31)
[2020-06-14] MEDS: MAG HYDROX/ALUMINUM/SIMETH SUS 20 ML, LIDOCAINE VISCOUS 2% 15 ML PO (11:31)
== END 2020-06-14 13:57 | disposition home or self-care (01) ==
PROVIDERS: Emergency Provider Emergency Medicine
DX: F11.23 Opioid dependence with withdrawal (principal); R11.2 Nausea with vomiting, unspecified; E86.0 Dehydration; R19.7 Diarrhea, unspecified
CPT/HCPCS: 36415; 74177; 80053; 81003; 81015; 83690; 85025; 96361; 96374; 96375; 99284; J2060; J2405; J2765; Q9967

== ENCOUNTER 2020-06-27 00:39 | Emergency (ER) | payer MEDICARE, BC, SELFPAY ==
[2020-06-27 00:51] VITALS: BP 170/82; PULSE 86; RESP 18; TEMP 37; O2SAT 95; BMI 37.7
[2020-06-27 01:07] LABS: Prothrombin Time 11.9 SECONDS (10.1-12.7)
[2020-06-27 01:08] LABS: Add Manual Diff / Slide Review NO; Basophils Absolute Auto 0 /uL (0-100); Basophils Percent Auto 0.2 % (0-2); Eosinophils Absolute Auto 300 /uL (0-450); Eosinophils Percent Auto 2.8 % (2-4); Hematocrit 49.2 % (41-53); Hemoglobin 16.4 g/dL (13.5-17.5); Lymphocytes Absolute Auto 900 /uL (1100-4500); Mean Corpuscular HGB Conc 33.4 % (30-36); Mean Corpuscular Hemoglobin 31.2 PG (26-34); Mean Corpuscular Volume 93.5 fL (80-100); Monocytes Absolute Auto 1000 /uL (0-900); Monocytes Percent Auto 8.7 % (3-14); Neutrophils Absolute Auto 9000 /uL (1500-7000); Neutrophils Percent Auto 80.3 % (50-75); Platelet Count 232 X10^3/uL (150-400); Red Blood Cell Count 5.26 X10^6/uL (4.5-5.9); Red Cell Distribution Width 14.5 % (11.6-14.8); White Blood Cell Count 11.2 X10^3/uL (4.5-11.0)
[2020-06-27 01:10] LABS: PTT Partial Thromboplastin Tim 34 SECONDS (26.4-36.2)
[2020-06-27 01:13] LABS: Alanine Aminotransferase 27 IU/L (<50); Albumin 4.2 g/dL (3.5-5.0); Albumin Globulin Ratio 1.4 (1.0-2.8); Alkaline Phosphatase 120 U/L (38-126); Aspartate Aminotransferase 27 IU/L (17-59); BUN Creatinine Ratio 18.1 (6-22); Bilirubin Total 1.6 mg/dL (0.2-1.3); Blood Urea Nitrogen 27 mg/dL (9-20); Carbon Dioxide 25 mmol/L (22-32); Chloride 106 mmol/L (98-107); Globulin 3.1 g/dL (1.7-4.1); Glucose 126 mg/dL (80-110); HEMOLYSIS 27 (0-50); Lipase 148 U/L (23-300); Potassium 4.6 mmol/L (3.4-5.1); Sodium 137 mmol/L (137-145); Total Protein 7.3 g/dL (6.3-8.2)
[2020-06-27 01:20] LABS: Bacteria Urine None Seen; WBC Urine None Seen (0-5/HPF)
--- NOTE | 2020-06-27 01:30 | DI.CT.S_ITS ---
PROCEDURE: CT KIDNEY URETER BLADDER (KUB) INDICATIONS: left flank pain TECHNIQUE: Noncontrast 5 mm thick sections acquired from the diaphragms to the symphysis. 5 mm thick coronal and sagittal reformats were then performed. For radiation dose reduction, the following was used: automated exposure control, adjustment of mA and/or kV according to patient size. COMPARISON: [facility]ed [facility], CT, CT ABDOMEN PELVIS W CON, 05/06/2018, 21:23. Merged With [facility], CT, CT ABDOMEN PELVIS W CON, 06/14/2020, 10:25. FINDINGS: Image quality: Excellent. Lung bases: There is mild linear scarring in the left lower lobe. Heart size is normal. Within the visualized right chest wall, there is a retroareolar lobulated low-attenuation mass measuring approximately 4.5 x 2.4 cm. There is a small hiatal hernia. Urinary system: There is a small structure in stone within the proximal left ureter measuring up to approximately 0.4 cm. There is associated mild left hydronephrosis with perinephric stranding. There are 2 additional nonobstructing left renal stones, with the largest stone measuring up to 0.6 cm. A prominent cortical cyst is demonstrated in the right kidney measuring up to 4.8 cm. There is a punctate nonobstructing right renal stone versus calcification along the cyst wall. No right hydronephrosis. Right ureter is nondistended. The urinary bladder is partially distended with suggestion of mild wall thickening. No calcified bladder stones. Other solid organs: There is heterogeneous hypoattenuation of the liver compatible with fatty infiltration. The gallbladder is surgically absent. Pancreas is normal in contours without peripancreatic fat stranding or fluid collections. Spleen is normal in size. No adrenal nodules. Peritoneum and bowel: There are postsurgical changes consistent with prior gastric bypass. Unenhanced bowel loops demonstrate normal wall thickness and caliber. The appendix is normal in appearance. There is colonic diverticulosis without acute diverticulitis. No free fluid or air. Nodes and vessels: No retroperitoneal or mesenteric adenopathy by size criteria. Aorta and inferior vena cava are normal in caliber. Abdominal wall: No ventral hernias. Pelvis: No free pelvic fluid. No inguinal hernias or adenopathy. Bones: No suspicious bony lesions. No vertebral body compression fractures. IMPRESSION: 1. Small obstructing proximal left ureteral stone with mild left hydronephrosis. 2. Additional small nonobstructing left renal stones as described. 3. Lobulated low-attenuation retroareolar mass within the visualized right chest wall. Recommend correlation clinically and further evaluation with mammogram and ultrasound if indicated. 4. Colonic diverticulosis without acute diverticulitis. Concordant with preliminary interpretation. Dictated by: Vishal Marx M.D. on 06/27/2020 at 8:51 Approved by: Vishal Marx M.D. on 06/27/2020 at 9:06
[2020-06-27 01:31] LABS: Culture Indicated Urine Cult Not Indicated; RBC Urine 10-30/HPF (0-5/HPF)
--- NOTE | 2020-06-27 01:32 | ED_ITS ---
HPI - Abdominal Pain General Chief Complaint: Abdominal Pain Stated Complaint: stomach spasms some nausea Time Seen by Provider: 06/27/20 01:19 Source: patient and family Mode of arrival: Ambulatory History of Present Illness HPI narrative: Patient here with . Patient complains of left flank pain radiating to left lower quadrant. Onset 10 hours ago. Has had intermittent nausea and vomiting. Pain waxes and wanes. Does not radiate to the chest or upper back. No urinary complaints. No recent illness. History of kidney stone in the past. Denies any dysuria or hematuria. Pain is not reproducible. Not dependent on movement or position. Cannot find comfortable position when it does occur. Pain at this time is minimal. Still has nausea. Patient here 2 weeks ago but this is not similar to complaints at that time. MD complaint: abdominal pain and flank pain Related Data Home Medications Medication Instructions Recorded Confirmed testosterone 1.62 % (20.25 mg/1.25 TOP gram 04/27/18 04/07/20 gram) transdermal gel packet esomeprazole magnesium 40 mg 40 mg PO DAILY 09/18/18 04/07/20 capsule,delayed release CBD oil PO 03/09/19 04/07/20 montelukast 10 mg tablet 10 mg PO QPM 03/09/19 04/07/20 hydrochlorothiazide 25 mg PO DAILY 09/06/19 06/12/20 levothyroxine 62.5 mcg PO DAILY 09/06/19 04/07/20 scopolamine base 1 patch TRANSDERMAL Q3D PRN 06/12/20 06/12/20 Previous Rx's Medication Instructions Recorded colchicine 0.6 mg capsule 1.2 mg PO ONCE #3 cap 11/24/19 metoclopramide HCl [Reglan] 10 mg PO Q6H PRN #30 tab 06/12/20 ondansetron 4 mg PO TID-QID PRN #10 tab 06/14/20 hydrocodone-acetaminophen 1 tab PO Q6H PRN #15 tab 06/27/20 ondansetron 4 mg PO Q8H PRN #10 tab 06/27/20 tamsulosin 0.4 mg PO DAILY #7 cap 06/27/20 Allergies Allergy/AdvReac Type Severity Reaction Status Date / Time No Known Drug Allergies Allergy Verified 04/07/20 16:51 Review of Systems Review of Systems Narrative: GENERAL: Denies chills, fatigue, malaise, fever, sweats. HEENT: Denies sinus pain, ear pain, sore throat, difficulty swallowing RESPIRATORY: Denies dyspnea, cough CARDIOVASCULAR: Denies chest pain, palpitations, edema, GASTROINTESTINAL: Complains nausea, vomiting, abdominal pain, denies diarrhea, constipation, melena. : Denies dysuria, frequency, hematuria MUSCULOSKELETAL: denies muscle or bony pain SKIN: Denies rash, skin lesions NEUROLOGIC: Denies weakness, headache, numbness, change in speech, confusion PSYCHIATRIC: No SI or HI or hallucinations ROS Unobtainable: All systems reviewed & are unremarkable except as noted in HPI and below Patient History Medical History Asthma (Chronic) Diverticular disease (Chronic) Eczema (Chronic) Foot pain (Chronic) GERD (gastroesophageal reflux disease) (Chronic) Gout (Chronic) Hypothyroidism (Chronic) Left hip pain (Acute) Low testosterone (Chronic) Measles (Resolved) Osteoarthritis (Chronic) Peripheral neuropathy (Chronic) Plantar warts (Chronic) Surgical History Anesthesia (Resolved) History of cholecystectomy (Resolved ~2008) History of knee surgery (Resolved ~2014) History of left knee replacement (Acute) Hx of laparoscopic gastric banding (Resolved) Sleep apnea (Chronic) Family History Father History of heart disease Mother Hypertension Brother History of heart disease Social History Smoking Status: Never smoker alcohol intake: current Smoking Status: Never smoker alcohol intake frequency: 0-2 drinks per day Substance Use Type: does not use Exam Narrative Exam Narrative: GENERAL: patient appears stated age. Well-nourished, well- developed patient, in no distress, not toxic not dyspneic HEAD: Normocephalic. EYES: Pupils equal round and reactive. No scleral icterus. No injection no discharge ENT: Mucous membranes moist. No drooling no tongue elevation no trismus no malocclusion NECK: Trachea midline. Non tender CARDIOVASCULAR: Regular rate and rhythm without murmurs, gallops, or rubs. RESPIRATORY: Clear to auscultation. Breath sounds equal bilaterally. No wheezes, rales, or rhonchi. GASTROINTESTINAL: Abdomen soft, non-tender, bowel sounds present no peritoneal signs EXTREMITIES: No gross deformities. BACK: Nontender without deformity or crepitance. No flank tenderness. NEURO: AOx4. SKIN: Warm and dry PSYCH: Not anxious, is cooperative Initial Vital Signs Initial Vital Signs: Vital Signs Temperature 98.6 F 06/27/20 00:51 Pulse Rate 86 06/27/20 00:51 Respiratory Rate 18 06/27/20 00:51 Blood Pressure 170/82 H 06/27/20 00:51 Pulse Oximetry 95 06/27/20 00:51 Course Course Course Narrative: Reviewed with patient and regarding findings on CT scans of the right breast. Important to have follow-up mammogram with family doctor, patient states his brother had mastectomy but he does not know why, informed patient that breast cancer must be evaluated by mammography as a start Orders Ordered: ED Orders 06/27/20 00:49 Complete Blood Count AUTO DIFF Stat Comprehensive Metabolic Panel Stat Lipase Stat Partial Thromboplastin Time Stat Prothrombin Time INR Stat 06/27/20 01:00 EKG-12 Lead Stat 06/27/20 01:10 Urine Microscopic Stat 06/27/20 01:30 CT kidney ureter bladder (KUB) Stat Discontinued Medications Hydromorphone HCl (Dilaudid) 1 mg IV NOW ONE Stop: 06/27/20 01:45 Last Admin: 06/27/20 02:02 Dose: 1 mg Documented by: VIKTORIYA Sodium Chloride (Normal Saline 0.9%) 1,000 mls @ 1,000 mls/hr IV BOLUS ONE Stop: 06/27/20 02:29 Last Infusion: 06/27/20 02:52 Dose: 0 mls/hr Documented by: Admin: 06/27/20 01:36 Dose: 1,000 mls/hr Documented by: VIKTORIYA Ondansetron HCl (Zofran) 4 mg IV NOW ONE Stop: 06/27/20 01:31 Last Admin: 06/27/20 01:36 Dose: 4 mg Documented by: VIKTORIYA Tamsulosin HCl (Flomax) 0.4 mg PO NOW ONE Stop: 06/27/20 03:00 Last Admin: 06/27/20 03:07 Dose: 0.4 mg Documented by: VIKTORIYA Reevaluation(s) Reevaluation #1: Patient pain and nausea much better. Reviewed imaging results with patient and . Patient states his brother did have a mastectomy. I informed patient he needs to see his family care provider at [facility] to schedule outpatient mammography this week. Time: 02:58 Consultations Consultation #1: Reviewed CT scan with radiologist Dr. Galan, he compared to 2018 CT scan. There is a density in the right breast area. Patient needs follow-up mammography outpatient basis Time: 02:57 Vital Signs Vital signs: Vital Signs - 8 hr 06/27/20 00:51 06/27/20 02:07 06/27/20 03:31 Temperature 98.6 F Pulse Rate 86 87 73 Respiratory Rate 18 16 14 Blood Pressure 170/82 H 163/73 H 151/74 H Pulse Oximetry 95 97 92 MDM - Abdominal Pain Differential Diagnosis Differential diagnosis: Likely abdominal pain, calculus of kidney, constipation, diverticulitis and small bowel obstruction Medical Records Attestation: I reviewed the patient's medical records. Lab Data Attestation: I reviewed the patient's lab results. Result diagrams: 06/27/20 00:49 06/27/20 00:49 Labs: Lab Results 06/27/20 06/27/20 06/27/20 Range/Units 00:49 00:49 00:49 WBC 11.2 H (4.5-11.0) X10^3/uL RBC 5.26 (4.5-5.9) X10^6/uL Hgb 16.4 (13.5-17.5) g/dL Hct 49.2 (41-53) % MCV 93.5 (80-100) fL MCH 31.2 (26-34) PG MCHC 33.4 (30-36) % RDW 14.5 (11.6-14.8) % Plt Count 232 (150-400) X10^3/uL Neut % (Auto) 80.3 H (50-75) % Lymph % (Auto) 8.0 L (25-40) % Cameron % (Auto) 8.7 (3-14) % Eos % (Auto) 2.8 (2-4) % Baso % (Auto) 0.2 (0-2) % Neut # (Auto) 9000 H (1074-0615) /uL Lymph # (Auto) 900 L (4868-4762) /uL Cameron # (Auto) 1000 H (0-900) /uL Eos # (Auto) 300 (0-450) /uL Baso # (Auto) 0 (0-100) /uL PT 11.9 (10.1-12.7) SECONDS INR 1.0 (0.9-1.3) APTT 34 D (26.4-36.2) SECONDS Sodium 137 (137-145) mmol/L Potassium 4.6 (3.4-5.1) mmol/L Chloride 106 (98-107) mmol/L Carbon Dioxide 25 (22-32) mmol/L BUN 27 H (9-20) mg/dL Creatinine 1.49 H (0.66-1.25) mg/dL Estimated GFR 47.0 L (>60) mL/min BUN/Creatinine Ratio 18.1 (6-22) Glucose 126 H (80-110) mg/dL Calcium 9.0 (8.4-10.2) mg/dL Total Bilirubin 1.6 H (0.2-1.3) mg/dL AST 27 (17-59) IU/L ALT 27 (<50) IU/L Alkaline Phosphatase 120 (38-126) U/L Total Protein 7.3 (6.3-8.2) g/dL Albumin 4.2 (3.5-5.0) g/dL Globulin 3.1 (1.7-4.1) g/dL Albumin/Globulin Ratio 1.4 (1.0-2.8) Lipase 148 (23-300) U/L Urine RBC (0-5/HPF) Urine WBC (0-5/HPF) Urine Bacteria (None) Ur Culture Indicated? 06/27/20 Range/Units 01:10 WBC (4.5-11.0) X10^3/uL RBC (4.5-5.9) X10^6/uL Hgb (13.5-17.5) g/dL Hct (41-53) % MCV (80-100) fL MCH (26-34) PG MCHC (30-36) % RDW (11.6-14.8) % Plt Count (150-400) X10^3/uL Neut % (Auto) (50-75) % Lymph % (Auto) (25-40) % Cameron % (Auto) (3-14) % Eos % (Auto) (2-4) % Baso % (Auto) (0-2) % Neut # (Auto) (3662-7661) /uL Lymph # (Auto) (3645-0640) /uL Cameron # (Auto) (0-900) /uL Eos # (Auto) (0-450) /uL Baso # (Auto) (0-100) /uL PT (10.1-12.7) SECONDS INR (0.9-1.3) APTT (26.4-36.2) SECONDS Sodium (137-145) mmol/L Potassium (3.4-5.1) mmol/L Chloride (98-107) mmol/L Carbon Dioxide (22-32) mmol/L BUN (9-20) mg/dL Creatinine (0.66-1.25) mg/dL Estimated GFR (>60) mL/min BUN/Creatinine Ratio (6-22) Glucose (80-110) mg/dL Calcium (8.4-10.2) mg/dL Total Bilirubin (0.2-1.3) mg/dL AST (17-59) IU/L ALT (<50) IU/L Alkaline Phosphatase (38-126) U/L Total Protein (6.3-8.2) g/dL Albumin (3.5-5.0) g/dL Globulin (1.7-4.1) g/dL Albumin/Globulin Ratio (1.0-2.8) Lipase (23-300) U/L Urine RBC 10-30/hpf H (0-5/HPF) Urine WBC None seen (0-5/HPF) Urine Bacteria None seen (None) Ur Culture Indicated? Cult not indicated Point of care testing: Urine Dip Bedside Urine Glucose Negative Bedside Urine Bilirubin - Negative Bedside Urine Ketone - Negative Urine Specific [place] 1.030 Bedside Urine Occult Blood ++ Bedside Urine pH 6 Bedside Urine Protein +/- 15 Bedside Urine Urobilinogen - Negative Bedside Urine Nitrite - Negative Bedside Urine Leukocytes - Negative Esterase Imaging Data CT scan - abdomen/pelvis: Radiologist's Impression: 3 mm stone in the proximal left ureter at the l evel of L3-L4. Partially visualized noncalcified cyst mildly macro lobulated 4.6 x 2.9 cm right asymmetric breast density. This is partially visualized. Appears relatively similar on a comparison examinations May 06, 2018 recommend follow-up nonemergent mammography ECG Data Attestation: I personally reviewed and interpreted this ECG as follows: Interpretation: Normal sinus rhythm no ST elevation or depression rate 80 MDM Narrative Medical decision making narrative: Appropriate for discharge home. Patient does have primary care to follow up for outpatient mammography. Given patient outpatient referral for Urology as well. Discharge Plan Departure Patient Disposition: Home Clinical Impression: Calculus, ureteral Discharge Date/Time: 06/27/20 03:33 Instructions: DI for Kidney Stones Activity Restrictions/Additional Instructions: No driving this morning. See family doctor this week for recheck as well as to schedule mammography of the right breast to follow-up for finding tonight on the CT scan. Call provided urology office today for office recheck in a week. Filter urine to try to capture stone to bring to the office. Return if worse or if any questions or concerns. Prescriptions have been sent to [facility] in [place] Prescriptions: New hydrocodone-acetaminophen 5-325 mg tablet 1 tab PO Q6H PRN (Reason: pain) Qty: 15 RF: 0 tamsulosin 0.4 mg capsule 0.4 mg PO DAILY Qty: 7 RF: 0 ondansetron 4 mg tablet,disintegrating 4 mg PO Q8H PRN (Reason: nausea and vomiting) Qty: 10 RF: 0 No Action testosterone [AndroGel] 1.62 % (20.25 mg/1.25 gram) gel in packet TOP RF: 0 esomeprazole magnesium [Nexium] 40 mg capsule,delayed release(DR/EC) 40 mg PO DAILY RF: 0 colchicine 0.6 mg capsule 1.2 mg PO ONCE Qty: 3 RF: 0 montelukast 10 mg tablet 10 mg PO QPM RF: 0 CBD oil PO RF: 0 ondansetron 4 mg tablet,disintegrating 4 mg PO TID-QID PRN (Reason: nausea and vomiting) Qty: 10 RF: 0 levothyroxine 125 mcg Tablet 62.5 mcg PO DAILY RF: 0 hydrochlorothiazide 25 mg Tablet 25 mg PO DAILY RF: 0 scopolamine base 1 mg over 3 days patch 3 day 1 patch transdermal Q3D PRN (Reason: Nausea) RF: 0 metoclopramide HCl [Reglan] 10 mg tablet 10 mg PO Q6H PRN (Reason: nausea and vomiting) Qty: 30 RF: 0 Referrals: Meng Amador MD [Physician] -
[2020-06-27] MEDS: SODIUM CHLORIDE 0.9% 1,000 ML 1000 ML IV (01:36)
[2020-06-27] MEDS: ONDANSETRON 4 MG/2 ML INJ IV (01:36)
[2020-06-27] MEDS: HYDROMORPHONE 1 MG INJ IV (02:02)
[2020-06-27 02:07] VITALS: BP 163/73; PULSE 87; RESP 16; O2SAT 97
[2020-06-27] MEDS: TAMSULOSIN 0.4 MG CAPSULE PO (03:07)
[2020-06-27 03:31] VITALS: BP 151/74; PULSE 73; RESP 14; O2SAT 92
== END 2020-06-27 03:33 | disposition home or self-care (01) ==
PROVIDERS: Emergency Provider Emergency Medicine
DX: N20.1 Calculus of ureter (principal); R11.2 Nausea with vomiting, unspecified
CPT/HCPCS: 36415; 74176; 80053; 81003; 81015; 83690; 85025; 85610; 85730; 93005; 96361; 96374; 96375; 99284; J1170; J2405

== ENCOUNTER → 2020-10-23 16:16 | Outpatient (CLI) | payer MEDICARE, SELFPAY ==
--- NOTE | 2020-10-23 16:17 | DI.RAD.S_ITS ---
PROCEDURE: XR FOOT LT MIN 3V INDICATIONS: distal insertion of plantar fascia pain,r/o bony abnormality TECHNIQUE: 3 views of the foot were acquired. COMPARISON: None. FINDINGS: Bones: No fractures or dislocations. [id number] osteoarthritic changes are noted throughout left foot more prominent at 1st MTP joint. No bony erosive changes. No suspicious bony lesions. Well-defined plantar calcaneal enthesophyte is seen. Soft tissues: No tibiotalar joint effusion. Achilles tendon appears normal. IMPRESSION: [id number] left foot joint osteoarthritis. Well-defined plantar calcaneal enthesophyte. No radiographic evidence of plantar fascial thickening is seen. No bony erosive changes. No fracture or dislocation. Dictated by: Chris Hughes M.D. on 10/23/2020 at 16:47 Approved by: Chris Hughes M.D. on 10/23/2020 at 16:49
== END ==
PROVIDERS: Referring Provider Physician Assistant; Visit Provider Physician Assistant
DX: M79.672 Pain in left foot (principal); M19.072 Primary osteoarthritis, left ankle and foot; M77.32 Calcaneal spur, left foot
CPT/HCPCS: 73630

== ENCOUNTER → 2021-09-06 14:40 | Outpatient (CLI) | payer MEDICARE, SELFPAY ==
[2021-09-06 16:02] LABS: COVID19 -Nasal RAPID Negative (Negative)
== END ==
PROVIDERS: PCP Nurse Practitioner; Referring Provider Physician Assistant; Visit Provider Physician Assistant
DX: Z20.822 Contact with and (suspected) exposure to COVID-19 (principal)
CPT/HCPCS: 87635

== ENCOUNTER → 2022-02-13 09:30 | Outpatient (CLI) | payer MEDICARE, SELFPAY | PROVIDERS: PCP Nurse Practitioner; Visit Provider Nurse Practitioner Family | DX: R30.0 Dysuria (principal) | CPT/HCPCS: 87077; 87086; 87186 ==

== ENCOUNTER → 2022-10-29 08:20 | Outpatient (CLI) | payer MEDICARE, SELFPAY ==
--- NOTE | 2022-10-29 08:21 | DI.RAD.S_ITS ---
PROCEDURE: XR KNEE RT 3V INDICATIONS: right knee pain, possible gout TECHNIQUE: 3 views of the knee were acquired. COMPARISON: None. FINDINGS: Bones: No fractures or dislocations. No suspicious bony lesions. Moderate medial and patellofemoral compartment narrowing. No erosions are identified. Soft tissues: No joint effusion. No suspicious soft tissue calcifications. IMPRESSION: Medial patellofemoral arthritic change without erosions. Dictated by: Cookie Quezada M.D. on 10/29/2022 at 9:05 Approved by: Cookie Quezada M.D. on 10/29/2022 at 9:05
== END ==
PROVIDERS: Referring Provider Student in an Organized Health Care Education/Training Program; Visit Provider Student in an Organized Health Care Education/Training Program
DX: M25.561 Pain in right knee (principal)
CPT/HCPCS: 73562

== ENCOUNTER → 2022-12-23 09:54 | Outpatient (CLI) | payer MEDICARE, SELFPAY ==
[2022-12-23 11:20] LABS: Alanine Aminotransferase 34 IU/L (<50); Albumin 4.2 g/dL (3.5-5.0); Albumin Globulin Ratio 1.7 (1.0-2.8); Alkaline Phosphatase 120 U/L (38-126); Aspartate Aminotransferase 23 IU/L (17-59); Bilirubin Total 2.2 mg/dL (0.2-1.3); Bilirubin Unconjugated 1.8 mg/dL (0.0-1.1); Globulin 2.5 g/dL (1.7-4.1); HEMOLYSIS < 15 (0-50); Total Protein 6.7 g/dL (6.3-8.2)
[2022-12-23 11:51] LABS: Testosterone 322 ng/dL (71.8-623)
== END ==
PROVIDERS: Referring Provider Physician Assistant; Visit Provider Physician Assistant
DX: E29.1 Testicular hypofunction (principal); R74.8 Abnormal levels of other serum enzymes
CPT/HCPCS: 36415; 80076; 84403

== ENCOUNTER 2023-02-12 12:46 | Emergency (ER) | payer MEDICARE, SELFPAY ==
[2023-02-12 12:49] VITALS: BP 162/75; PULSE 87; RESP 18; TEMP 36.6; O2SAT 97; BMI 38.4
--- NOTE | 2023-02-12 12:57 | DI.RAD.S_ITS ---
PROCEDURE: XR KNEE LT 1TO2V INDICATIONS: pain x 2 days TECHNIQUE: 2 views of the knee were acquired. COMPARISON: [facility], CR, XR KNEE RT 3V, 10/29/2022, 8:24. FINDINGS: Bones: No fractures or dislocations. No suspicious bony lesions. Well-aligned, intact arthroplasty without hardware complication. Soft tissues: No joint effusion. No suspicious soft tissue calcifications. IMPRESSION: No acute bony abnormality. Dictated by: Robert Harris M.D. on 02/12/2023 at 13:40 Approved by: Robert Harris M.D. on 02/12/2023 at 13:41
--- NOTE | 2023-02-12 12:57 | DI.RAD.S_ITS ---
PROCEDURE: XR ELBOW LT 2V INDICATIONS: pain x 2 days TECHNIQUE: 2 views of the elbow were acquired. COMPARISON: None. FINDINGS: Suboptimal evaluation due to limited mobility. Bones: No fractures or dislocations. No suspicious bony lesions. Soft tissues: No elbow joint effusion. No suspicious soft tissue calcifications. IMPRESSION: Suboptimal evaluation due to limited mobility. No definite displaced fracture identified. If there remains a high clinical concern, consider cross-sectional imaging. Dictated by: Robert Harris M.D. on 02/12/2023 at 13:41 Approved by: Robert Harris M.D. on 02/12/2023 at 13:42
--- NOTE | 2023-02-12 13:09 | ED.EXTPRO ---
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 Waite from [facility]. He states that it was uncomplicated and it was a cleanout procedure due to his arthrofibrosis. He states over the last few days he is had worsening left knee swelling, pain, and he noticed a mosquito bite on his left knee. He was recently in [place], endorses having diarrhea from trip, also endorses increased fatigue, chills, denies measured fever. He states that 3 days ago he had a dental implant in his taking oral antibiotics for this but does not remember which kind. Patient has a history of gout. Related Data Home Medications Medication Instructions Recorded Confirmed testosterone 1.62 % (20.25 mg/1.25 topical 04/27/18 10/29/22 gram) transdermal gel packet (AndroGel) esomeprazole magnesium 40 mg 40 mg PO DAILY 09/18/18 10/29/22 capsule,delayed release (Nexium) CBD oil PO 03/09/19 10/29/22 montelukast 10 mg tablet 10 mg PO QPM 03/09/19 10/29/22 hydrochlorothiazide 25 mg tablet 25 mg PO DAILY 09/06/19 10/29/22 levothyroxine 125 mcg tablet 62.5 mcg PO DAILY 09/06/19 10/29/22 scopolamine base 1 mg over 3 days 1 patch transdermal Q3D PRN Nausea 06/12/20 10/29/22 transdermal patch Previous Rx's Medication Instructions Recorded colchicine 0.6 mg capsule 1.2 mg PO ONCE #3 caps 11/24/19 metoclopramide HCl 10 mg tablet 10 mg PO Q6H PRN nausea and 06/12/20 (Reglan) vomiting #30 tabs ondansetron 4 mg disintegrating 4 mg PO TID-QID PRN nausea and 06/14/20 tablet vomiting #10 tabs hydrocodone 5 mg-acetaminophen 325 1 tab PO Q6H PRN pain #15 tabs 06/27/20 mg tablet ondansetron 4 mg disintegrating 4 mg PO Q8H PRN nausea and 06/27/20 tablet vomiting #10 tabs tamsulosin 0.4 mg capsule 0.4 mg PO DAILY #7 caps 06/27/20 diclofenac sodium 1 % topical gel 4 g topical QID PRN pain #100 grams 02/12/23 doxycycline hyclate 100 mg capsule 100 mg PO BID for s/s of infection 02/12/23 7 days #14 caps naproxen 375 mg tablet 375 mg PO BID PRN pain #30 tabs 02/12/23 oxycodone-acetaminophen 5 mg-325 1 tab PO Q8H PRN pain #14 tabs 02/12/23 mg tablet (Percocet) prednisone 50 mg tablet 50 mg PO DAILY #6 tabs 02/12/23 Allergies Allergy/AdvReac Type Severity Reaction Status Date / Time No Known Drug Allergies Allergy Verified 10/29/22 08:01 Patient History <DARIO Avelar - Last Filed: 02/12/23 16:12> Medical History Asthma Diverticular disease Eczema Foot pain GERD (gastroesophageal reflux disease) Gout Hypothyroidism Left foot pain Left hip pain Low testosterone Measles Osteoarthritis Peripheral neuropathy Peripheral neuropathy Plantar warts Tinea pedis Surgical History Anesthesia History of cholecystectomy (~2008) History of knee surgery (~2014) History of left knee replacement Hx of laparoscopic gastric banding Sleep apnea Family History Father History of heart disease Mother Hypertension Brother History of heart disease Social History Smoking Status: Never smoker alcohol intake: current Smoking Status: Never smoker alcohol intake frequency: 0-2 drinks per day Substance Use Type: does not use Exam <DARIO Avelar - Last Filed: 02/12/23 16:12> Narrative Exam Narrative: Reviewed vitals signs and nursing notes. General: Pleasant, sitting upright, in no acute distress, well groomed, afebrile HEENT: symmetrical facial expressions, moist mucous membranes, neck is supple CV: regular rate and rhythm, warm extremities Respiratory: normal work of breathing, without tachypnea or hypoxia. GI: abdomen soft, nondistended, without CVA tenderness bilaterally. MSK: moves all extremities, no weakness, normal tone, ambulatory with cane, limping on left side, patient's left elbow and left knee are warm, swollen, mildly erythematous, without a wound, left knee is firm without palpable effusion Skin: brisk capillary refill, without rash or wound Neuro: clear speech and normal cognition, A&O x3, GCS 15, no focal motor or sensation deficits Initial Vital Signs Initial Vital Signs: Vital Signs Temperature 97.9 F 02/12/23 12:49 Pulse Rate 87 02/12/23 12:49 Respiratory Rate 18 02/12/23 12:49 Blood Pressure 162/75 H 02/12/23 12:49 Pulse Oximetry 97 02/12/23 12:49 Oxygen Delivery Method Room Air 02/12/23 12:49 <Sabino Calvo DO - Last Filed: 02/12/23 15:57> Initial Vital Signs Initial Vital Signs: Vital Signs Temperature 97.9 F 02/12/23 12:49 Pulse Rate 87 02/12/23 12:49 Respiratory Rate 18 02/12/23 12:49 Blood Pressure 162/75 H 02/12/23 12:49 Pulse Oximetry 97 02/12/23 12:49 Oxygen Delivery Method Room Air 02/12/23 12:49 Procedures <DARIO Avelar - Last Filed: 02/12/23 16:12> Joint Aspiration Joint Asp./Inject. 1: Time of procedure: 14:00 Time Out Performed: Yes Side of body: left Joint Aspirated: knee Ultrasound Guidance: No Skin Prep: Chlorhexidine Local Anesthetic: lidocaine 2% and with epi Amount of anesthesia used (mL): 3 Needle Size Used: 18G Fluid Obtained: bloody Total fluid obtained (mL): 3 Medication Injected, if any: Lidocaine Amount of medication injected (mL): 3 Patient Tolerated Procedure: Well and No complications Complications: unable to obtain fluid Course <DARIO Avelar - Last Filed: 02/12/23 16:12> Orders Ordered: ED Orders 02/12/23 12:57 XR elbow LT 2V Stat XR knee LT 1to2V Stat 02/12/23 13:40 Body Fluid Culture Stat Cell Count w Diff Body Fluid Stat Crystals Body Fluid - IN-HOUSE Stat 02/12/23 14:18 CBC Auto Diff [Complete Blood Count AUTO DIFF] Stat CMP [Comprehensive Metabolic Panel] Stat CRP [C-Reactive Protein Quant] Stat ESR [Erythrocyte Sedimentation Rate] Stat Uric Acid Stat Discontinued Medications Diphtheria/Tetanus/Acell Pertussis (Tet,Diph,Pertuss(Acell),Vac/Pf 0.5 Ml Syringe) 0.5 ml IM .ONCE ONE Stop: 02/12/23 13:31 Last Admin: 02/12/23 13:38 Dose: 0.5 ml Documented By: RB Ketorolac Tromethamine (Ketorolac 30 Mg/Ml Vial) 15 mg IM NOW ONE Stop: 02/12/23 13:31 Last Admin: 02/12/23 13:37 Dose: 15 mg Documented By: RB Oxycodone/Acetaminophen (Oxycodone/Acetaminophen 5/325 Tablet) 1 tab PO NOW ONE Stop: 02/12/23 13:31 Last Admin: 02/12/23 13:37 Dose: 1 tab Documented By: RB Prednisone (Prednisone 20 Mg Tablet) 60 mg PO NOW ONE Stop: 02/12/23 13:48 Last Admin: 02/12/23 13:56 Dose: 60 mg Documented By: RB Vital Signs Vital signs: Vital Signs - 8 hr 02/12/23 12:49 02/12/23 14:30 Temperature 97.9 F Pulse Rate 87 67 Respiratory Rate 18 Blood Pressure 162/75 H 132/64 Pulse Oximetry 97 93 Oxygen Delivery Method Room Air Room Air <Sabino Calvo DO - Last Filed: 02/12/23 15:57> Orders Ordered: ED Orders 02/12/23 12:57 XR elbow LT 2V Stat XR knee LT 1to2V Stat 02/12/23 13:40 Body Fluid Culture Stat Cell Count w Diff Body Fluid Stat Crystals Body Fluid - IN-HOUSE Stat 02/12/23 14:18 CBC Auto Diff [Complete Blood Count AUTO DIFF] Stat CMP [Comprehensive Metabolic Panel] Stat CRP [C-Reactive Protein Quant] Stat ESR [Erythrocyte Sedimentation Rate] Stat Uric Acid Stat Discontinued Medications Diphtheria/Tetanus/Acell Pertussis (Tet,Diph,Pertuss(Acell),Vac/Pf 0.5 Ml Syringe) 0.5 ml IM .ONCE ONE Stop: 02/12/23 13:31 Last Admin: 02/12/23 13:38 Dose: 0.5 ml Documented By: RB Ketorolac Tromethamine (Ketorolac 30 Mg/Ml Vial) 15 mg IM NOW ONE Stop: 02/12/23 13:31 Last Admin: 02/12/23 13:37 Dose: 15 mg Documented By: RB Oxycodone/Acetaminophen (Oxycodone/Acetaminophen 5/325 Tablet) 1 tab PO NOW ONE Stop: 02/12/23 13:31 Last Admin: 02/12/23 13:37 Dose: 1 tab Documented By: RB Prednisone (Prednisone 20 Mg Tablet) 60 mg PO NOW ONE Stop: 02/12/23 13:48 Last Admin: 02/12/23 13:56 Dose: 60 mg Documented By: RB Vital Signs Vital signs: Vital Signs - 8 hr 02/12/23 12:49 02/12/23 14:30 Temperature 97.9 F Pulse Rate 87 67 Respiratory Rate 18 Blood Pressure 162/75 H 132/64 Pulse Oximetry 97 93 Oxygen Delivery Method Room Air Room Air MDM - Extremity (Nontraumatic) <Mary Coronado [facility] - Last Filed: 02/12/23 16:12> Lab Data 02/12/23 14:18 02/12/23 14:18 Labs: Lab Results 02/12/23 02/12/23 02/12/23 Range/Units 13:40 13:40 14:18 WBC 9.3 (4.5-11.0) X10^3/uL RBC 4.82 (4.5-5.9) X10^6/uL Hgb 14.8 (13.5-17.5) g/dL Hct 43.5 (41-53) % MCV 90.2 (80-100) fL MCH 30.8 (26-34) PG MCHC 34.1 (30-36) % RDW 15.7 H (11.6-14.8) % Plt Count 202 (150-400) X10^3/uL Neut % (Auto) 79.7 H (50-75) % Lymph % (Auto) 8.8 L (25-40) % [place] % (Auto) 9.9 (3-14) % Eos % (Auto) 1.4 L (2-4) % Baso % (Auto) 0.2 (0-2) % Neut # (Auto) 7400 H (3891-1698) /uL Lymph # (Auto) 800 L (2433-4721) /uL [place] # (Auto) 900 (0-900) /uL Eos # (Auto) 100 (0-450) /uL Baso # (Auto) 0 (0-100) /uL ESR (0-15) MM/HR Sodium (137-145) mmol/L Potassium (3.4-5.1) mmol/L Chloride (98-107) mmol/L Carbon Dioxide (22-32) mmol/L BUN (9-20) mg/dL Creatinine (0.66-1.25) mg/dL Estimated GFR (>60) mL/min BUN/Creatinine Ratio (6-22) Glucose (80-110) mg/dL Uric Acid (3.5-8.5) mg/dL Calcium (8.4-10.2) mg/dL Total Bilirubin (0.2-1.3) mg/dL AST (17-59) IU/L ALT (<50) IU/L Alkaline Phosphatase (38-126) U/L C-Reactive Protein (<1.0) mg/dL Total Protein (6.3-8.2) g/dL Albumin (3.5-5.0) g/dL Globulin (1.7-4.1) g/dL Albumin/Globulin Ratio (1.0-2.8) Fluid Color Red Fluid Appearance Cloudy Fluid RBC TNP Fld Tot Nucleated Cell TNP Fluid Polynuclear WBCs 85 % Fluid Mononuclear WBCs 14 % Fluid Eosinophils 1 % Fluid Other Cells Not Reportable Fluid Crystals None present (NONE) Body Fluid Clot Specimen clotted 02/12/23 02/12/23 02/12/23 Range/Units 14:18 14:18 14:18 WBC (4.5-11.0) X10^3/uL RBC (4.5-5.9) X10^6/uL Hgb (13.5-17.5) g/dL Hct (41-53) % MCV (80-100) fL MCH (26-34) PG MCHC (30-36) % RDW (11.6-14.8) % Plt Count (150-400) X10^3/uL Neut % (Auto) (50-75) % Lymph % (Auto) (25-40) % [place] % (Auto) (3-14) % Eos % (Auto) (2-4) % Baso % (Auto) (0-2) % Neut # (Auto) (6775-4190) /uL Lymph # (Auto) (5126-2753) /uL [place] # (Auto) (0-900) /uL Eos # (Auto) (0-450) /uL Baso # (Auto) (0-100) /uL ESR 9 (0-15) MM/HR Sodium 137 (137-145) mmol/L Potassium 4.0 (3.4-5.1) mmol/L Chloride 105 (98-107) mmol/L Carbon Dioxide 25 (22-32) mmol/L BUN 10 (9-20) mg/dL Creatinine 1.03 (0.66-1.25) mg/dL Estimated GFR > 60 (>60) mL/min BUN/Creatinine Ratio 9.7 (6-22) Glucose 94 (80-110) mg/dL Uric Acid 5.4 (3.5-8.5) mg/dL Calcium 8.0 L (8.4-10.2) mg/dL Total Bilirubin 1.7 H (0.2-1.3) mg/dL AST 25 (17-59) IU/L ALT 28 (<50) IU/L Alkaline Phosphatase 112 (38-126) U/L C-Reactive Protein 0.7 (<1.0) mg/dL Total Protein 6.2 L (6.3-8.2) g/dL Albumin 3.7 (3.5-5.0) g/dL Globulin 2.5 (1.7-4.1) g/dL Albumin/Globulin Ratio 1.5 (1.0-2.8) Fluid Color Fluid Appearance Fluid RBC Fld Tot Nucleated Cell Fluid Polynuclear WBCs % Fluid Mononuclear WBCs % Fluid Eosinophils % Fluid Other Cells Fluid Crystals (NONE) Body Fluid Clot Imaging Data Extremity x-ray #1: Radiologist's Impression: PROCEDURE:? XR KNEE LT 1TO2V ? INDICATIONS:? pain x 2 days ? TECHNIQUE:? 2 views of the knee were acquired.? ? COMPARISON:? [facility], CR, XR KNEE RT 3V, 10/29/2022, 8:24. ? FINDINGS:? ? Bones:? No fractures or dislocations.? No suspicious bony lesions.? Well-aligned, intact arthroplasty without hardware complication. ? Soft tissues:? No joint effusion.? No suspicious soft tissue calcifications.? ? ? IMPRESSION:? No acute bony abnormality.? ? Dictated by: Robert Harris M.D. on 02/12/2023 at 13:40 ? ? Approved by: Robert Harris M.D. on 02/12/2023 at 13:41 ? Extremity x-ray #2: Radiologist's Impression: [place] [address] XRay Report Signed Patient: Steven Man MR#: [id number] : 1950 Acct:[id number] Age/Sex: 72 / M Date of Service: 02/12/23 Loc: ED Accession Number: [id number] ?? Procedure: XR elbow LT 2V Ordering Provider: Sabino Calvo D.O. PROCEDURE:? XR ELBOW LT 2V ? INDICATIONS:? pain x 2 days ? TECHNIQUE:? 2 views of the elbow were acquired.? ? COMPARISON:? None. ? FINDINGS:? Suboptimal evaluation due to limited mobility. ? Bones:? No fractures or dislocations.? No suspicious bony lesions.? ? Soft tissues:? No elbow joint effusion.? No suspicious soft tissue calcifications.? ? ? IMPRESSION:? Suboptimal evaluation due to limited mobility.? No definite displaced fracture identified.? If there remains a high clinical concern, consider cross-sectional imaging. ? ? Dictated by: Robert Harris M.D. on 02/12/2023 at 13:41 ? ? Approved by: Robert Harris M.D. on 02/12/2023 at 13:42 ? MDM Narrative Medical decision making narrative: Chief Complaint: Left elbow and left knee pain, swelling, reduced mobility Primary historian: Patient Multiple etiologies for patient's complaint considered including, but not limited to: Gout/pseudogout, septic joint, overuse injury, effusion, Lyme disease, tendinitis Plan: X-ray of left elbow and left knee, lab work to include CBC, CMP, ESR, CRP I have independently reviewed the patient's vital signs and nursing notes as well as prior records if available. My interpretation of imaging: Left knee without acute abnormality Course of care: Attempted joint aspiration was mostly unsuccessful, only bloody drainage came out, patient states that he is had attempts at this in the past and there was never fluid that came out due to his arthrofibrosis. Patient's symptoms and exam is most consistent with gout. His pain improved immediately after Toradol was given and he was feeling much better by the time of discharge. X-ray of his left elbow and left knee do not show any bony abnormalities, effusion or acute abnormalities. Low suspicion for joint infection at this point, left knee and left elbow were warm to touch, mildly pink but not erythematous, without ecchymosis, generalized tenderness with any mobility. Patient's mobility of his left arm improved after Toradol was given. 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 Since he had such improved symptoms after the Toradol and prednisone, I suspect this is most likely gout and he will not need to take the antibiotic. Social considerations that may affect disposition: none Questions are addressed and there is agreement with the plan and for follow-up. I consulted with the ED attending physician Dr. Calvo as needed for higher level of care considerations and they were available for discussion and recommendations regarding plan of care and diagnostic testing. Patient is appropriate for outpatient management. <Sabino Calvo, DO - Last Filed: 02/12/23 15:57> Lab Data Labs: Lab Results 02/12/23 02/12/23 02/12/23 Range/Units 13:40 13:40 14:18 WBC 9.3 (4.5-11.0) X10^3/uL RBC 4.82 (4.5-5.9) X10^6/uL Hgb 14.8 (13.5-17.5) g/dL Hct 43.5 (41-53) % MCV 90.2 (80-100) fL MCH 30.8 (26-34) PG MCHC 34.1 (30-36) % RDW 15.7 H (11.6-14.8) % Plt Count 202 (150-400) X10^3/uL Neut % (Auto) 79.7 H (50-75) % Lymph % (Auto) 8.8 L (25-40) % [place] % (Auto) 9.9 (3-14) % Eos % (Auto) 1.4 L (2-4) % Baso % (Auto) 0.2 (0-2) % Neut # (Auto) 7400 H (0793-7616) /uL Lymph # (Auto) 800 L (8191-9819) /uL [place] # (Auto) 900 (0-900) /uL Eos # (Auto) 100 (0-450) /uL Baso # (Auto) 0 (0-100) /uL ESR (0-15) MM/HR Sodium (137-145) mmol/L Potassium (3.4-5.1) mmol/L Chloride (98-107) mmol/L Carbon Dioxide (22-32) mmol/L BUN (9-20) mg/dL Creatinine (0.66-1.25) mg/dL Estimated GFR (>60) mL/min BUN/Creatinine Ratio (6-22) Glucose (80-110) mg/dL Uric Acid (3.5-8.5) mg/dL Calcium (8.4-10.2) mg/dL Total Bilirubin (0.2-1.3) mg/dL AST (17-59) IU/L ALT (<50) IU/L Alkaline Phosphatase (38-126) U/L C-Reactive Protein (<1.0) mg/dL Total Protein (6.3-8.2) g/dL Albumin (3.5-5.0) g/dL Globulin (1.7-4.1) g/dL Albumin/Globulin Ratio (1.0-2.8) Fluid Color Red Fluid Appearance Cloudy Fluid RBC TNP Fld Tot Nucleated Cell TNP Fluid Polynuclear WBCs 85 % Fluid Mononuclear WBCs 14 % Fluid Eosinophils 1 % Fluid Other Cells Not Reportable Fluid Crystals None present (NONE) Body Fluid Clot Specimen clotted 02/12/23 02/12/23 02/12/23 Range/Units 14:18 14:18 14:18 WBC (4.5-11.0) X10^3/uL RBC (4.5-5.9) X10^6/uL Hgb (13.5-17.5) g/dL Hct (41-53) % MCV (80-100) fL MCH (26-34) PG MCHC (30-36) % RDW (11.6-14.8) % Plt Count (150-400) X10^3/uL Neut % (Auto) (50-75) % Lymph % (Auto) (25-40) % [place] % (Auto) (3-14) % Eos % (Auto) (2-4) % Baso % (Auto) (0-2) % Neut # (Auto) (4307-3625) /uL Lymph # (Auto) (9522-0839) /uL [place] # (Auto) (0-900) /uL Eos # (Auto) (0-450) /uL Baso # (Auto) (0-100) /uL ESR 9 (0-15) MM/HR Sodium 137 (137-145) mmol/L Potassium 4.0 (3.4-5.1) mmol/L Chloride 105 (98-107) mmol/L Carbon Dioxide 25 (22-32) mmol/L BUN 10 (9-20) mg/dL Creatinine 1.03 (0.66-1.25) mg/dL Estimated GFR > 60 (>60) mL/min BUN/Creatinine Ratio 9.7 (6-22) Glucose 94 (80-110) mg/dL Uric Acid 5.4 (3.5-8.5) mg/dL Calcium 8.0 L (8.4-10.2) mg/dL Total Bilirubin 1.7 H (0.2-1.3) mg/dL AST 25 (17-59) IU/L ALT 28 (<50) IU/L Alkaline Phosphatase 112 (38-126) U/L C-Reactive Protein 0.7 (<1.0) mg/dL Total Protein 6.2 L (6.3-8.2) g/dL Albumin 3.7 (3.5-5.0) g/dL Globulin 2.5 (1.7-4.1) g/dL Albumin/Globulin Ratio 1.5 (1.0-2.8) Fluid Color Fluid Appearance Fluid RBC Fld Tot Nucleated Cell Fluid Polynuclear WBCs % Fluid Mononuclear WBCs % Fluid Eosinophils % Fluid Other Cells Fluid Crystals (NONE) Body Fluid Clot Discharge Plan Departure Patient Disposition: Home Clinical Impression: Gout Qualifiers: Gout site: multiple sites Gout etiology: unspecified cause Chronicity: acute Qualified Code(s): M10.9 - Gout, unspecified Arthrofibrosis of total knee arthroplasty Qualifiers: Encounter type: initial encounter Qualified Code(s): T84.82XA - Fibrosis due to internal orthopedic prosthetic devices, implants and grafts, initial encounter Instructions: Gout Activity Restrictions/Additional Instructions: *You have been diagnosed with swelling and pain of her left elbow left knee, this is most consistent with gout. It is warm, painful and similar to gout. Gout this are treated fairly similarly. Please finish the steroids and take your food with medications. Please take naproxen morning and night, prednisone in the morning with food, and continue with Nexium to prevent ulcer your stomach. Please follow-up with your surgeon for another evaluation. If this gout flare continues, you can have damage done to the joint and the goal is to get this to calm down as soon as possible and keep it away. You can use ice for pain as well as pain pills. If you notice worsening redness, pain, swelling and you are having chills, please consider starting the other antibiotic in conjunction with this antibiotic that your on for your teeth. If you start the antibiotic, please do not stop it. If you feel way better after today than it is most likely gout and not infection. I will call you if there is anything abnormal on the lab work to discuss, especially if it is showing signs of infection as opposed to gout. I think that this is gout and I have prescribed you an antibiotic to take if you have worsening symptoms but I think that this will calm down with this medication and you may not need it. *What to do: *Please continue to take your regular medications as directed. [ x] New medication prescriptions sent to your pharmacy: [[facility] [place] ] [ ] New medication written as a paper prescription [ ] No new medications given *Please call and schedule follow up with your primary care provider in 2-3 days, at least for an update. Let them know you were seen in the Emergency Department for the above problem. We will electronically transmit a record of today's note if your PCP or specialist is in our system. *If you do not have a primary care provider please contact [phone] to establish care with one of the [facility] primary care providers. *Return to the Emergency Department for worsening symptoms, inability to keep liquids down, fever greater than 101F, chills, or other concerning symptom. Prescriptions: New oxycodone-acetaminophen [Percocet] 5-325 mg tablet 1 tab PO Q8H PRN (Reason: pain) Qty: 14 0RF naproxen 375 mg tablet 375 mg PO BID PRN (Reason: pain) Qty: 30 0RF diclofenac sodium 1 % gel 4 g topical QID PRN (Reason: pain) Qty: 100 2RF Rx Instructions: apply to knee and or elbow up to 4 times a day as needed for pain prednisone 50 mg tablet 50 mg PO DAILY Qty: 6 0RF Rx Instructions: Take 50 mg for the next 4 days followed by 25 mg a day for 4 days. doxycycline hyclate 100 mg capsule 100 mg PO BID 7 Days Qty: 14 0RF No Action testosterone [AndroGel] 1.62 % (20.25 mg/1.25 gram) gel in packet TOP esomeprazole magnesium [Nexium] 40 mg capsule,delayed release(DR/EC) 40 mg PO DAILY colchicine 0.6 mg capsule 1.2 mg PO ONCE Qty: 3 0RF Rx Instructions: Take 2 tabs now, the 1 tab an hours later. montelukast 10 mg tablet 10 mg PO QPM CBD oil PO ondansetron 4 mg tablet,disintegrating 4 mg PO TID-QID PRN (Reason: nausea and vomiting) Qty: 10 0RF levothyroxine 125 mcg Tablet 62.5 mcg PO DAILY hydrochlorothiazide 25 mg Tablet 25 mg PO DAILY scopolamine base 1 mg over 3 days patch 3 day 1 patch transdermal Q3D PRN (Reason: Nausea) metoclopramide HCl [Reglan] 10 mg tablet 10 mg PO Q6H PRN (Reason: nausea and vomiting) Qty: 30 0RF hydrocodone-acetaminophen 5-325 mg tablet 1 tab PO Q6H PRN (Reason: pain) Qty: 15 0RF tamsulosin 0.4 mg capsule 0.4 mg PO DAILY Qty: 7 0RF ondansetron 4 mg tablet,disintegrating 4 mg PO Q8H PRN (Reason: nausea and vomiting) Qty: 10 0RF Referrals: Miscellaneous,Doctor, MD [Primary Care Provider] - Stand Alone Forms: Patient Portal/API <Sabino Calvo, DO - Last Filed: 02/12/23 15:57> Cosign ED Attending Cosignature Attestation: Dr Calvo Co-Sign Statement: I was available for consultation during this patient's emergency department visit. This chart is signed by myself for administrative purposes only. I did not have direct contact with this patient during this visit. They were seen independently by the APC.
[2023-02-12] MEDS: KETOROLAC 30 MG/ML VIAL 15 MG IM (13:37)
[2023-02-12] MEDS: OXYCODONE/ACETAMINOPHEN 5/325 TABLET 1 TAB PO (13:37)
[2023-02-12] MEDS: TET,DIPH,PERTUSS(ACELL),VAC/PF 0.5 ML SYRINGE IM (13:38)
[2023-02-12] MEDS: predniSONE 20 MG TABLET 60 MG PO (13:56)
[2023-02-12 14:12] LABS: Body Fluid Clotted? SPECIMEN CLOTTED; Body Fluid Color RED
[2023-02-12 14:13] LABS: Body Fluid Appearance CLOUDY
[2023-02-12 14:29] LABS: Add Manual Diff / Slide Review NO; Basophils Absolute Auto 0 /uL (0-100); Basophils Percent Auto 0.2 % (0-2); Eosinophils Absolute Auto 100 /uL (0-450); Eosinophils Percent Auto 1.4 % (2-4); Hematocrit 43.5 % (41-53); Hemoglobin 14.8 g/dL (13.5-17.5); Lymphocytes Absolute Auto 800 /uL (1100-4500); Lymphocytes Percent Auto 8.8 % (25-40); Mean Corpuscular HGB Conc 34.1 % (30-36); Mean Corpuscular Hemoglobin 30.8 PG (26-34); Mean Corpuscular Volume 90.2 fL (80-100); Monocytes Absolute Auto 900 /uL (0-900); Monocytes Percent Auto 9.9 % (3-14); Neutrophils Absolute Auto 7400 /uL (1500-7000); Neutrophils Percent Auto 79.7 % (50-75); Platelet Count 202 X10^3/uL (150-400); Red Blood Cell Count 4.82 X10^6/uL (4.5-5.9); Red Cell Distribution Width 15.7 % (11.6-14.8); White Blood Cell Count 9.3 X10^3/uL (4.5-11.0)
[2023-02-12 14:30] VITALS: BP 132/64; PULSE 67; O2SAT 93
[2023-02-12 14:50] LABS: Crystals Body Fluid - IN-HOUSE NONE Present
[2023-02-12 15:11] LABS: Alanine Aminotransferase 28 IU/L (<50); Albumin 3.7 g/dL (3.5-5.0); Albumin Globulin Ratio 1.5 (1.0-2.8); Alkaline Phosphatase 112 U/L (38-126); Aspartate Aminotransferase 25 IU/L (17-59); BUN Creatinine Ratio 9.7 (6-22); Bilirubin Total 1.7 mg/dL (0.2-1.3); Blood Urea Nitrogen 10 mg/dL (9-20); Carbon Dioxide 25 mmol/L (22-32); Chloride 105 mmol/L (98-107); Estimated Glomerular Filt Rate > 60 mL/min (>60); Globulin 2.5 g/dL (1.7-4.1); Glucose 94 mg/dL (80-110); HEMOLYSIS < 15 (0-50); Sodium 137 mmol/L (137-145); Total Protein 6.2 g/dL (6.3-8.2); Uric Acid 5.4 mg/dL (3.5-8.5)
[2023-02-12 15:15] LABS: C-Reactive Protein Quant 0.7 mg/dL (<1.0)
[2023-02-12 15:30] LABS: Erythrocyte Sedimentation Rate 9 MM/HR (0-15)
[2023-02-12 15:44] LABS: Eosinophils Body Fluid 1 %; Mononuclear WBC Body Fluid 14 %; Polynuclear WBC Body Fluid 85 %
== END 2023-02-12 14:34 | disposition home or self-care (01) ==
PROVIDERS: Emergency Provider Nurse Practitioner Critical Care Medicine
DX: M10.9 Gout, unspecified (principal); T84.82XA Fibrosis due to internal orthopedic prosthetic devices, implants and grafts, initial encounter; Z96.652 Presence of left artificial knee joint; Z23 Encounter for immunization; Z79.899 Other long term (current) drug therapy
CPT/HCPCS: 20610; 73070; 73560; 80053; 84550; 85025; 85651; 86140; 87070; 87075; 87205; 89051; 89060; 90471; 96372; 99284; 90715; J1885

== ENCOUNTER 2023-12-31 12:25 | Emergency (ER) | payer MEDICARE, SELFPAY ==
[2023-12-31 12:26] VITALS: BP 141/72; PULSE 78; RESP 15; TEMP 36.4; O2SAT 97; BMI 36.7
--- NOTE | 2023-12-31 12:44 | ED_ITS ---
HPI - General Adult General Chief complaint: Abdominal Pain Stated complaint: sent by [facility], diverticulitis Time Seen by Provider: 12/31/23 12:28 Source: patient Mode of arrival: Ambulatory History of Present Illness HPI narrative: Patient is a 73-year-old male with a history of diverticulitis who is here for evaluation of just over 24 hours of left-sided abdominal pain that he states feels just like his prior diagnosis of diverticulitis. No diarrhea. No change in his stool. He had some clindamycin that he purchase from [place] that he took yesterday and he feels like maybe his symptoms are somewhat better today. No fevers. No vomiting. No chest pain. Related Data Home Medications Medication Instructions Recorded Confirmed testosterone 1.62 % (20.25 mg/1.25 topical 04/27/18 10/29/22 gram) transdermal gel packet (AndroGel) esomeprazole magnesium 40 mg 40 mg PO DAILY 09/18/18 10/29/22 capsule,delayed release (Nexium) CBD oil PO 03/09/19 10/29/22 montelukast 10 mg tablet 10 mg PO QPM 03/09/19 10/29/22 hydrochlorothiazide 25 mg tablet 25 mg PO DAILY 09/06/19 10/29/22 levothyroxine 125 mcg tablet 62.5 mcg PO DAILY 09/06/19 10/29/22 scopolamine base 1 mg over 3 days 1 patch transdermal Q3D PRN Nausea 06/12/20 10/29/22 transdermal patch Previous Rx's Medication Instructions Recorded colchicine 0.6 mg capsule 1.2 mg (2 x 0.6 mg) PO ONCE #3 caps 11/24/19 metoclopramide HCl 10 mg tablet 10 mg PO Q6H PRN nausea and 06/12/20 (Reglan) vomiting #30 tabs ondansetron 4 mg disintegrating 4 mg PO TID-QID PRN nausea and 06/14/20 tablet vomiting #10 tabs hydrocodone 5 mg-acetaminophen 325 1 tab PO Q6H PRN pain #15 tabs 06/27/20 mg tablet ondansetron 4 mg disintegrating 4 mg PO Q8H PRN nausea and 06/27/20 tablet vomiting #10 tabs tamsulosin 0.4 mg capsule 0.4 mg PO DAILY #7 caps 06/27/20 diclofenac sodium 1 % topical gel 4 g topical QID PRN pain #100 grams 02/12/23 naproxen 375 mg tablet 375 mg PO BID PRN pain #30 tabs 02/12/23 oxycodone-acetaminophen 5 mg-325 1 tab PO Q8H PRN pain #14 tabs 02/12/23 mg tablet (Percocet) prednisone 50 mg tablet 50 mg PO DAILY #6 tabs 02/12/23 ciprofloxacin HCl 500 mg tablet 500 mg PO BID 10 days #20 tabs 12/31/23 (Cipro) metronidazole 500 mg tablet 500 mg PO TID 10 days #30 tabs 12/31/23 Allergies Allergy/AdvReac Type Severity Reaction Status Date / Time No Known Drug Allergies Allergy Verified 12/31/23 12:33 Review of Systems Review of Systems Narrative: See HPI Patient History Medical History Peripheral neuropathy Tinea pedis Left foot pain Left hip pain Plantar warts Eczema Osteoarthritis Asthma Peripheral neuropathy Gout Foot pain Measles GERD (gastroesophageal reflux disease) Diverticular disease Low testosterone Hypothyroidism Surgical History Anesthesia History of cholecystectomy (~2008) History of knee surgery (~2014) History of left knee replacement Hx of laparoscopic gastric banding Sleep apnea Family History Father History of heart disease Mother Hypertension Brother History of heart disease Social History Smoking Status: Never smoker alcohol intake: current Smoking Status: Never smoker alcohol intake frequency: holidays/special occasions only Substance Use Type: does not use Exam Initial Vital Signs Initial Vital Signs: Vital Signs Temperature 97.6 F 12/31/23 12:26 Pulse Rate 78 12/31/23 12:26 Respiratory Rate 15 12/31/23 12:26 Blood Pressure 141/72 H 12/31/23 12:26 Pulse Oximetry 97 12/31/23 12:26 Oxygen Delivery Method Room Air 12/31/23 12:26 Cardio Rate: regular rate Rhythm: regular rhythm GI Inspection: normal to inspection and non-distended Palpation: soft and tender Skin General: no rashes or lesions noted Course Vital Signs Vital signs: Vital Signs - 8 hr 12/31/23 12:26 Temperature 97.6 F Pulse Rate 78 Respiratory Rate 15 Blood Pressure 141/72 H Pulse Oximetry 97 Oxygen Delivery Method Room Air Medical Decision Making MDM Narrative Medical decision making narrative: Patient has a history of diverticulitis. He has been admitted 1 time in the past for it although has never had any surgery. He states the symptoms he presents with today are very similar to diverticulitis. We discussed the risks and benefits of obtaining labs and CT. We discussed how this would confirm the diagnosis and potentially rule out any current complication such as abscess or perforations or obstructions. We discussed going home on antibiotics and treating presumptively. After this discussion the patient opted just to take the antibiotics and avoid any lab work and CT scan for now. The antibiotics were sent to the pharmacy of his choice. He was given return precautions. He expressed understanding and agreement. Discharge Plan Departure Patient Disposition: Home Clinical Impression: Diverticulitis, Abdominal pain Instructions: DI for Diverticulitis Activity Restrictions/Additional Instructions: I do recommend that you take all of the antibiotics as directed. If your symptoms worsen or you can not take the antibiotics or you develop fevers please return to the emergency department for further evaluation. Prescriptions: New ciprofloxacin HCl [Cipro] 500 mg tablet 500 mg PO BID 10 Days Qty: 20 0RF metronidazole 500 mg tablet 500 mg PO TID 10 Days Qty: 30 0RF No Action testosterone [AndroGel] 1.62 % (20.25 mg/1.25 gram) gel in packet TOP esomeprazole magnesium [Nexium] 40 mg capsule,delayed release(DR/EC) 40 mg PO DAILY colchicine 0.6 mg capsule 1.2 mg PO ONCE Qty: 3 0RF Rx Instructions: Take 2 tabs now, the 1 tab an hours later. montelukast 10 mg tablet 10 mg PO QPM CBD oil PO ondansetron 4 mg tablet,disintegrating 4 mg PO TID-QID PRN (Reason: nausea and vomiting) Qty: 10 0RF oxycodone-acetaminophen [Percocet] 5-325 mg tablet 1 tab PO Q8H PRN (Reason: pain) Qty: 14 0RF naproxen 375 mg tablet 375 mg PO BID PRN (Reason: pain) Qty: 30 0RF diclofenac sodium 1 % gel 4 g topical QID PRN (Reason: pain) Qty: 100 2RF Rx Instructions: apply to knee and or elbow up to 4 times a day as needed for pain prednisone 50 mg tablet 50 mg PO DAILY Qty: 6 0RF Rx Instructions: Take 50 mg for the next 4 days followed by 25 mg a day for 4 days. levothyroxine 125 mcg Tablet 62.5 mcg PO DAILY hydrochlorothiazide 25 mg Tablet 25 mg PO DAILY scopolamine base 1 mg over 3 days patch 3 day 1 patch transdermal Q3D PRN (Reason: Nausea) metoclopramide HCl [Reglan] 10 mg tablet 10 mg PO Q6H PRN (Reason: nausea and vomiting) Qty: 30 0RF hydrocodone-acetaminophen 5-325 mg tablet 1 tab PO Q6H PRN (Reason: pain) Qty: 15 0RF tamsulosin 0.4 mg capsule 0.4 mg PO DAILY Qty: 7 0RF ondansetron 4 mg tablet,disintegrating 4 mg PO Q8H PRN (Reason: nausea and vomiting) Qty: 10 0RF Referrals: Miscellaneous,Doctor, MD [Primary Care Provider] - Stand Alone Forms: Patient Portal/API
== END 2023-12-31 12:51 | disposition home or self-care (01) ==
PROVIDERS: Emergency Provider Emergency Medicine
DX: K57.92 Diverticulitis of intestine, part unspecified, without perforation or abscess without bleeding (principal)
CPT/HCPCS: 99281; 99282

== ENCOUNTER → 2024-12-06 11:46 | Outpatient (CLI) | payer MEDICARE, SELFPAY ==
[2024-12-06 12:34] LABS: Influenza A - CEPHEID Flu A NEGATIVE (NEGATIVE); Influenza B - CEPHEID Flu B NEGATIVE (NEGATIVE); Respiratory Syncytial Virus Negative (Negative)
[2024-12-06 12:35] LABS: COVID-19 CEPHEID 4-PLEX PCR Negative (Negative)
== END ==
PROVIDERS: Referring Provider Physician Assistant; Visit Provider Physician Assistant
DX: R05.1 Acute cough (principal)
CPT/HCPCS: 0241U

== ENCOUNTER → 2024-12-13 10:22 | Outpatient (CLI) | payer MEDICARE, SELFPAY ==
--- NOTE | 2024-12-13 10:24 | DI.RAD.S_ITS ---
PROCEDURE: XR CHEST 2V INDICATIONS: Cough TECHNIQUE: 2 views of the chest were acquired. COMPARISON: [facility], CR, XR CHEST 1V, 09/06/2019, 13:19. FINDINGS: Surgical changes and devices: None. Lungs and pleura: Lungs are clear. No pleural effusions or pneumothorax. Mediastinum: Mediastinal contours are normal. Heart size is normal. Bones and chest wall: No suspicious bony abnormalities. Soft tissues appear unremarkable. IMPRESSION: No acute cardiopulmonary abnormality is seen. Dictated by: Robert Harris M.D. on 12/13/2024 at 13:34 Approved by: Robert Harris M.D. on 12/13/2024 at 13:34
== END ==
PROVIDERS: Referring Provider Nurse Practitioner Family; Visit Provider Nurse Practitioner Family
DX: R05.9 Cough, unspecified (principal)
CPT/HCPCS: 71046

== ENCOUNTER 2024-12-29 10:36 | Observation (INO) | payer MEDICARE, SELFPAY ==
[2024-12-29] VITALS (21 sets, daily range): BP systolic 103–151; BP diastolic 55–78; PULSE 61–81; RESP 9–22; TEMP 36.2–37; O2SAT 93–99; BMI 35.8
--- NOTE | 2024-12-29 10:51 | DI.RAD.S_ITS ---
PROCEDURE: XR CHEST 1V INDICATIONS: Shortness of breath TECHNIQUE: One view of the chest was acquired. COMPARISON: [facility], CR, XR CHEST 2V, 12/13/2024, 10:27. FINDINGS: Surgical changes and devices: None. Lungs and pleura: Lungs are clear. No pleural effusions or pneumothorax. Mediastinum: Mediastinal contours appear normal. Heart size is enlarged. Bones and chest wall: No suspicious bony lesions. Overlying soft tissues appear unremarkable. IMPRESSION: No acute pulmonary process. Dictated by: Cookie Quezada M.D. on 12/29/2024 at 12:05 Approved by: Cookie Quezada M.D. on 12/29/2024 at 12:06
--- NOTE | 2024-12-29 10:51 | EKG_ITS ---
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
[2024-12-29 11:23] LABS: Add Manual Diff / Slide Review NO; Basophils Absolute Auto 0 /uL (0-100); Basophils Percent Auto 0.3 % (0-2); Eosinophils Absolute Auto 200 /uL (0-450); Eosinophils Percent Auto 2.2 % (2-4); Hematocrit 43.8 % (41-53); Hemoglobin 15.1 g/dL (13.5-17.5); Lymphocytes Absolute Auto 1100 /uL (1100-4500); Lymphocytes Percent Auto 15.1 % (25-40); Mean Corpuscular HGB Conc 34.4 % (30-36); Mean Corpuscular Hemoglobin 31.8 PG (26-34); Mean Corpuscular Volume 92.4 fL (80-100); Monocytes Absolute Auto 600 /uL (0-900); Monocytes Percent Auto 8.3 % (3-14); Neutrophils Absolute Auto 5300 /uL (1500-7000); Neutrophils Percent Auto 74.1 % (50-75); Platelet Count 239 X10^3/uL (150-400); Red Blood Cell Count 4.73 X10^6/uL (4.5-5.9); Red Cell Distribution Width 14.3 % (11.6-14.8); White Blood Cell Count 7.2 X10^3/uL (4.5-11.0)
[2024-12-29 11:25] LABS: Prothrombin Time 11.4 SECONDS (9.4-12.5)
[2024-12-29 11:29] LABS: HEMOLYSIS < 15 (0-50); Potassium 4.6 mmol/L (3.4-5.1)
[2024-12-29 11:30] LABS: Alanine Aminotransferase 37 IU/L (<50); Albumin 4.5 g/dL (3.5-5.0); Albumin Globulin Ratio 1.7 (1.0-2.8); Alkaline Phosphatase 82 U/L (38-126); Aspartate Aminotransferase 31 IU/L (17-59); BUN Creatinine Ratio 16.7 (6-22); Bilirubin Total 1.6 mg/dL (0.2-1.3); Blood Urea Nitrogen 19 mg/dL (9-20); Calcium 8.5 mg/dL (8.4-10.2); Carbon Dioxide 23 mmol/L (22-32); Chloride 106 mmol/L (98-107); Estimated Glomerular Filt Rate > 60 mL/min (>60); Globulin 2.7 g/dL (1.7-4.1); Glucose 84 mg/dL (70-99); Sodium 139 mmol/L (137-145); Total Protein 7.2 g/dL (6.3-8.2)
[2024-12-29 11:42] LABS: NT-proBNP (BNP-Adult 18+) 47 pg/mL (<125); Troponin I < 0.012 ng/mL (0.01-0.034)
--- NOTE | 2024-12-29 11:50 | ED_ITS ---
HPI - SOB/Dyspnea General Chief Complaint: Shortness of Breath/Dyspnea Stated Complaint: SOB 3 weeks Time Seen by Provider: 12/29/24 11:50 Source: patient, RN notes reviewed and old records reviewed Mode of arrival: Ambulatory Limitations: no limitations History of Present Illness HPI Narrative: 74-year-old male history of hypothyroidism, hypertension, GERD, JUHI, asthma who presents with complaint of sensation of shortness breath for the past 3 weeks. Patient states he has been seen he was had chest x-ray, had respiratory swab with COVID/influenza/RSV which was negative. Patient states has been persistent and not really improving. He describes some substernal chest discomfort without any radiation, he states he was felt short of breath but intermittently. He was states exertion does not seem to make anything worse. He denies fevers but has had a cough that has been persistent he had green productive sputum for about 2 weeks with a green discoloration has a resolved but the cough has been persistent. States he only thing that seems to help is when he uses his albuterol. He denies any new swelling of his extremities. He denies any fevers or chills. No nausea or vomiting. States occasionally has diarrhea but not regularly. He notes he was prescribed albuterol which has been helpful but symptoms have not resolved. He did have Teslashanda Voss states they were not helpful. Use to have Symbicort but has not had asthma symptoms and some time so no longer has this. States he takes levothyroxine for his thyroid, losartan, Nexium, majora no, testosterone and uses a CPAP. States he was had prior knee surgery, had stress test that you do have 2 or 3 years ago for now prior cardiac stents. No known drug allergies. Denies any tobacco use in the present or past. Rare alcohol, no recreational drugs. Follows with primary care through [facility]. Patient presents today as he was just not improved. Related Data Home Medications Medication Instructions Recorded Confirmed esomeprazole magnesium 40 mg 40 mg PO DAILY 09/18/18 12/13/24 capsule,delayed release (Nexium) CBD oil PO 03/09/19 12/13/24 montelukast 10 mg tablet 10 mg PO QPM 03/09/19 12/13/24 hydrochlorothiazide 25 mg tablet 25 mg PO DAILY 09/06/19 12/13/24 scopolamine base 1 mg over 3 days 1 patch transdermal Q3D PRN Nausea 06/12/20 12/13/24 transdermal patch allopurinol 300 mg tablet 300 mg PO DAILY 12/06/24 12/13/24 levothyroxine 88 mcg tablet 88 mcg PO DAILY 12/06/24 12/13/24 losartan 25 mg tablet 25 mg PO DAILY 12/06/24 12/13/24 testosterone 81 mg topical QAM 12/06/24 12/13/24 tirzepatide 15 mg/0.5 mL mg SUBCUT 12/06/24 12/13/24 subcutaneous pen injector (Margo) Previous Rx's Medication Instructions Recorded tamsulosin 0.4 mg capsule 0.4 mg PO DAILY #7 caps 06/27/20 diclofenac sodium 1 % topical gel 4 g topical QID PRN pain #100 grams 02/12/23 prednisone 50 mg tablet 50 mg PO DAILY #6 tabs 02/12/23 benzonatate 200 mg capsule 200 mg PO BID PRN cough #28 caps 12/13/24 Allergies Allergy/AdvReac Type Severity Reaction Status Date / Time No Known Drug Allergies Allergy Verified 12/13/24 09:53 Review of Systems Review of Systems ROS Unobtainable: All systems reviewed & are unremarkable except as noted in HPI and below Patient History Medical History Peripheral neuropathy Tinea pedis Left foot pain Left hip pain Plantar warts Eczema Osteoarthritis Asthma Peripheral neuropathy Gout Foot pain Measles GERD (gastroesophageal reflux disease) Diverticular disease Low testosterone Hypothyroidism Surgical History History of left knee replacement Anesthesia History of knee surgery (~2014) History of cholecystectomy (~2008) Hx of laparoscopic gastric banding Sleep apnea Family History Father History of heart disease Mother Hypertension Brother History of heart disease Social History Smoking Status: Never smoker alcohol intake: current Smoking Status: Never smoker alcohol intake frequency: holidays/special occasions only Alcohol type: beer Exam Narrative Exam Narrative: GENERAL: Alert and oriented x three, obese male in mild distress HEENT: Head normocephalic, atraumatic, EOMI, pupils reactive, face symmetric, moist mucous membranes NECK: Supple, full range of motion CARDIOVASCULAR: Regular rate and rhythm without murmurs, rubs or gallops. No JVD. No edema bilateral lower extremities. RESPIRATORY: Breath sounds equal bilaterally, no wheezes, patient has crackles bilateral base, no rhonchi. No tachypnea or accessory muscle use. ABDOMEN: Soft, nontender. Normoactive bowel sounds all 4 quadrants. No guarding or rebound, rigidity, no mass : No CVA tenderness EXTREMITIES: Normal range of motion, no clubbing or edema. Neurovascularly intact NEUROLOGICAL: Cranial nerves II through XII grossly intact. Moving all extremities SKIN: Warm, dry, no petechiae, no rashes or lesions. Initial Vital Signs Initial Vital Signs: Vital Signs Pulse Rate 71 12/29/24 10:43 Pulse Oximetry 97 12/29/24 10:43 Course Orders Ordered: ED Orders 12/29/24 10:51 XR chest 1V Stat EKG-12 Lead Stat Measure peak expiratory flow STAT RT Consult Eval and Treat STAT 12/29/24 11:02 Complete Blood Count AUTO DIFF Stat Comprehensive Metabolic Panel Stat D Dimer Stat Lactate (Lactic Acid) Stat NT-proBNP (BNP-Adult 18+) Stat Prothrombin Time INR Stat Troponin I Stat 12/29/24 13:02 Trop I [Troponin I] Stat Discontinued Medications Albuterol (Albuterol 2.5 Mg/3 Ml Neb (Adult)) 2.5 mg INH NOW ONE Stop: 12/29/24 12:08 Last Admin: 12/29/24 12:13 Dose: 2.5 mg Documented By: PINA Aspirin (Aspirin 81 Mg Chew Tab) 324 mg PO NOW ONE Stop: 12/29/24 14:13 Vital Signs Vital signs: Vital Signs - 8 hr 12/29/24 10:43 12/29/24 10:44 12/29/24 10:44 Temperature Pulse Rate 71 71 Respiratory Rate Blood Pressure 134/72 Pulse Oximetry 97 96 Oxygen Delivery Method Fraction of Inspired Oxygen 12/29/24 10:45 12/29/24 11:00 12/29/24 11:00 Temperature 97.6 F Pulse Rate 67 71 Respiratory Rate 16 16 Blood Pressure 134/72 127/60 Pulse Oximetry 96 95 Oxygen Delivery Method Room Air Fraction of Inspired Oxygen 12/29/24 11:06 12/29/24 11:06 12/29/24 11:30 Temperature Pulse Rate 67 Respiratory Rate 16 Blood Pressure 111/55 L 111/66 Pulse Oximetry 94 Oxygen Delivery Method Nasal Cannula Fraction of Inspired Oxygen 12/29/24 11:30 12/29/24 12:00 12/29/24 12:00 Temperature Pulse Rate 66 65 Respiratory Rate 17 17 Blood Pressure 117/72 Pulse Oximetry 93 96 Oxygen Delivery Method Fraction of Inspired Oxygen 12/29/24 12:15 12/29/24 12:30 12/29/24 12:30 Temperature Pulse Rate 74 72 Respiratory Rate 18 16 Blood Pressure 116/68 Pulse Oximetry 96 96 Oxygen Delivery Method Room Air Fraction of Inspired Oxygen 21 12/29/24 13:00 12/29/24 13:00 12/29/24 13:30 Temperature Pulse Rate 61 81 Respiratory Rate 18 22 Blood Pressure 107/57 L Pulse Oximetry 97 96 Oxygen Delivery Method Room Air Fraction of Inspired Oxygen 12/29/24 13:30 12/29/24 14:10 12/29/24 14:11 Temperature Pulse Rate 77 Respiratory Rate 9 L Blood Pressure 114/64 139/77 Pulse Oximetry 99 Oxygen Delivery Method Fraction of Inspired Oxygen 12/29/24 14:11 Temperature Pulse Rate 71 Respiratory Rate 11 L Blood Pressure Pulse Oximetry 97 Oxygen Delivery Method Fraction of Inspired Oxygen MDM - SOB/Dyspnea Lab Data 12/29/24 11:02 12/29/24 11:02 Labs: Lab Results 12/29/24 12/29/24 Range/Units 11:02 13:02 WBC 7.2 (4.5-11.0) X10^3/uL RBC 4.73 (4.5-5.9) X10^6/uL Hgb 15.1 (13.5-17.5) g/dL Hct 43.8 (41-53) % MCV 92.4 (80-100) fL MCH 31.8 (26-34) PG MCHC 34.4 (30-36) % RDW 14.3 (11.6-14.8) % Plt Count 239 (150-400) X10^3/uL Neut % (Auto) 74.1 (50-75) % Lymph % (Auto) 15.1 L (25-40) % Towner % (Auto) 8.3 (3-14) % Eos % (Auto) 2.2 (2-4) % Baso % (Auto) 0.3 (0-2) % Neut # (Auto) 5300 (8557-0514) /uL Lymph # (Auto) 1100 (7713-0027) /uL Towner # (Auto) 600 (0-900) /uL Eos # (Auto) 200 (0-450) /uL Baso # (Auto) 0 (0-100) /uL PT 11.4 (9.4-12.5) SECONDS INR 1.0 (0.9-1.3) D-Dimer 363 (<500) ng/ml Sodium 139 (137-145) mmol/L Potassium 4.6 (3.4-5.1) mmol/L Chloride 106 (98-107) mmol/L Carbon Dioxide 23 (22-32) mmol/L BUN 19 (9-20) mg/dL Creatinine 1.14 (0.66-1.25) mg/dL Estimated GFR > 60 (>60) mL/min BUN/Creatinine Ratio 16.7 (6-22) Glucose 84 (70-99) mg/dL Lactate 1.0 (0.7-2.1) mmol/L Calcium 8.5 (8.4-10.2) mg/dL Total Bilirubin 1.6 H (0.2-1.3) mg/dL AST 31 (17-59) IU/L ALT 37 (<50) IU/L Alkaline Phosphatase 82 (38-126) U/L Troponin I < 0.012 0.022 (0.01-0.034) ng/mL NT-Pro-B Natriuret Pep 47 (<125) pg/mL Total Protein 7.2 (6.3-8.2) g/dL Albumin 4.5 (3.5-5.0) g/dL Globulin 2.7 (1.7-4.1) g/dL Albumin/Globulin Ratio 1.7 (1.0-2.8) ECG Data Attestation: I personally reviewed and interpreted this ECG as follows: Prior ECG tracings: available for review Interpretation: Sinus rhythm rate of 71 ME 190 QRS of 92 QTC of 432, no acute ST elevation. Patient was prior from 09/06/2019 which appears similar to today's. Repeat EKG sinus rhythm occasional PVCs rate of 67 ME 208 QRS 88 QTC 431. MDM Narrative Medical decision making narrative: EKG shows sinus rhythm has prior from 2019 which appears similar, repeat EKG shows PVC no other acute EKG changes appreciated. Labs show normal CBC low lymphocytes percentage, INR is 1, electrolytes, BUN and creatinine are within normal limits, bilirubin is chronically elevated over the past 2 years at 1.6 lower than priors, AST ALT alk-phos normal troponins less than 0.012 with a BNP of 47. Repeat troponin is still negative but trended upwards 0.022. D-dimer is 363 Chest x-ray shows no acute change. 74-year-old male with persistent shortness of breath and some substernal chest discomfort. Denies dyspnea with exertion states symptoms seemed to be better when he uses albuterol notes he had a productive green cough for 2 weeks and discoloration has resolved but cough has not. Patient's initial workup shows no acute change does have some risk factors for cardiac source but with his cough and prior productive sputum I suspect he may have infectious component he does have some crackles on exam as well. Patient notes he has a history of asthma but has not regularly needed any daily steroid inhaler and has been off his Symbicort for some time. He notes symptoms are best improved with albuterol. Patient had albuterol he felt improved but has not had any wheeze on exam. Patient was negative but did trend upward slightly does describe some substernal chest discomfort that is intermittent. Cardiac workup was otherwise no acute change, patient has had a stress test 2 or 3 years ago. Has had recent infection had green productive sputum which has resolved lungs are clear on exam. Discussed with patient we would like to keep for observation although possible he may have some persistent bronchitis but with clear lung sounds and negative chest xray. Spoke with the hospitalist, Dr. Vivar who accepts for observation. Discussed has had recent viral upper respiratory symptoms but it was actually overall been improving with these but has had intermittent chest discomfort and shortness of breath with some risk factors. Patient noted afterwards that he had what sounds like pharmacologic stress test as he could not tolerate walking on a treadmill. Did reach out to Dr. Vivar confirmed they do perform these here at [facility]. Discharge Plan Departure Patient Disposition: Admitted as Observation Clinical Impression: Chest pain Admit Date/Time: 12/29/24 14:38 Admit Provider: Bernardino Vivar
[2024-12-29 12:05] LABS: D Dimer 363 ng/ml (<500)
[2024-12-29] MEDS: ALBUTEROL 2.5 MG/3 ML NEB (ADULT) INH ×2 (12:13→19:14)
--- NOTE | 2024-12-29 13:04 | EKG_ITS ---
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
[2024-12-29 13:38] LABS: Troponin I 0.022 ng/mL (0.01-0.034)
[2024-12-29] MEDS: ASPIRIN 81 MG CHEW TAB 324 MG PO (15:35)
--- NOTE | 2024-12-29 15:57 | PM.HP.1 ---
History of Present Illness History of Present Illness Date Patient Seen: 12/29/24 Chief complaint: SOB 3 weeks Narrative: The patient was a pleasant 74-year-old male with a history of hypothyroidism, hypertension, GERD, JUHI, and asthma. The patient presents with 3 weeks of being ill. Initially had a URI with shortness a breath, and a cough which was productive of green phlegm. These symptoms improved over the last 3 weeks, however he was had persistent dyspnea and chest heaviness. He notes that the symptoms have persisted. He feels as though he was not able to get weaned in and out. He was not had audible wheezing. He was worried about his childhood asthma reactivating. He does note dyspnea with exertion. He did have a stress test in 2020 which was low risk. He was not particularly worried about his heart but more about the possibility of asthmatic bronchitis. Chest x-ray was clear. Initial troponin had minimal elevation. He was had some diarrhea chronically, this alternates with constipation. No leg edema, or orthopnea. He does have a brother with a cardiomyopathy. [facility] Medical History Peripheral neuropathy Tinea pedis Left foot pain Left hip pain Plantar warts Eczema Osteoarthritis Asthma Peripheral neuropathy Gout Foot pain Measles GERD (gastroesophageal reflux disease) Diverticular disease Low testosterone Hypothyroidism Surgical History History of left knee replacement Anesthesia History of knee surgery (~2014) History of cholecystectomy (~2008) Hx of laparoscopic gastric banding Sleep apnea Family History Father History of heart disease Mother Hypertension Brother History of heart disease Social History Smoking Status: Never smoker alcohol intake: current Meds Home Medications and Allergies Home Medications Medication Instructions Recorded Confirmed Type esomeprazole magnesium 40 mg 40 mg PO DAILY 09/18/18 12/29/24 History capsule,delayed release (Nexium) montelukast 10 mg tablet 10 mg PO QPM 03/09/19 12/29/24 History allopurinol 300 mg tablet 300 mg PO DAILY 12/06/24 12/29/24 History levothyroxine 88 mcg tablet 88 mcg PO DAILY 12/06/24 12/29/24 History losartan 25 mg tablet 25 mg PO DAILY 12/06/24 12/29/24 History testosterone 81 mg topical QAM 12/06/24 12/29/24 History tirzepatide 15 mg/0.5 mL 15 mg SUBCUT QWEEK 12/06/24 12/29/24 History subcutaneous pen injector (Margo) benzonatate 200 mg capsule 200 mg PO BID PRN cough #28 caps 12/13/24 12/29/24 Rx Allergies Allergy/AdvReac Type Severity Reaction Status Date / Time No Known Drug Allergies Allergy Verified 12/13/24 09:53 Review of Systems Review of Systems Narrative: All else reviewed and otherwise unremarkable except as noted in the history and physical. Exam Vital Signs (past 8 hours): - 12/29/24 10:43 12/29/24 10:44 12/29/24 10:44 Temperature Pulse Rate 71 71 Respiratory Rate Blood Pressure 134/72 Pulse Oximetry 97 96 Oxygen Delivery Method Fraction of Inspired Oxygen 12/29/24 10:45 12/29/24 11:00 12/29/24 11:00 Temperature 97.6 F Pulse Rate 67 71 Respiratory Rate 16 16 Blood Pressure 134/72 127/60 Pulse Oximetry 96 95 Oxygen Delivery Method Room Air Fraction of Inspired Oxygen 12/29/24 11:06 12/29/24 11:06 12/29/24 11:30 Temperature Pulse Rate 67 Respiratory Rate 16 Blood Pressure 111/55 L 111/66 Pulse Oximetry 94 Oxygen Delivery Method Nasal Cannula Fraction of Inspired Oxygen 12/29/24 11:30 12/29/24 12:00 12/29/24 12:00 Temperature Pulse Rate 66 65 Respiratory Rate 17 17 Blood Pressure 117/72 Pulse Oximetry 93 96 Oxygen Delivery Method Fraction of Inspired Oxygen 12/29/24 12:15 12/29/24 12:30 12/29/24 12:30 Temperature Pulse Rate 74 72 Respiratory Rate 18 16 Blood Pressure 116/68 Pulse Oximetry 96 96 Oxygen Delivery Method Room Air Fraction of Inspired Oxygen 12/29/24 13:00 12/29/24 13:00 12/29/24 13:30 Temperature Pulse Rate 61 81 Respiratory Rate 18 22 Blood Pressure 107/57 L Pulse Oximetry 97 96 Oxygen Delivery Method Room Air Fraction of Inspired Oxygen 12/29/24 13:30 12/29/24 14:10 12/29/24 14:11 Temperature Pulse Rate 77 Respiratory Rate 9 L Blood Pressure 114/64 139/77 Pulse Oximetry 99 Oxygen Delivery Method Fraction of Inspired Oxygen 12/29/24 14:11 12/29/24 14:30 12/29/24 14:33 Temperature Pulse Rate 71 71 70 Respiratory Rate 11 L Blood Pressure Pulse Oximetry 97 96 97 Oxygen Delivery Method Fraction of Inspired Oxygen 12/29/24 14:33 12/29/24 15:00 12/29/24 15:01 Temperature Pulse Rate 70 69 Respiratory Rate Blood Pressure 114/78 Pulse Oximetry 94 94 Oxygen Delivery Method Room Air Fraction of Inspired Oxygen 12/29/24 15:01 12/29/24 15:30 12/29/24 15:30 Temperature Pulse Rate 66 Respiratory Rate Blood Pressure 133/74 119/63 Pulse Oximetry 96 Oxygen Delivery Method Fraction of Inspired Oxygen 12/29/24 15:55 Temperature 97.6 F Pulse Rate Respiratory Rate Blood Pressure Pulse Oximetry Oxygen Delivery Method Fraction of Inspired Oxygen Fraction of Inspired Oxygen 21 SaO2/FiO2 Ratio 457 Oxygen Delivery Method Room Air Narrative Exam Narrative: NAD, alert and oriented, fluent speech, calm. Normocephalic skull, EOMI, anicteric sclera, symmetric pupils. Oropharynx unremarkable, no droop. Neck supple, midline trachea, no adenopathy. Lungs clear, normal rate and effort. He does have prolonged expiratory phase with reactive coughing consistent with broncho reactive airways. Heart regular, no murmur gallop or rub. Abdomen is soft, non distended and non tender. Extremities are free of edema. Skin is free of rash or lesions. Joints are not swollen or deformed. Judgment appears to be normal. Objective ECG Impression: Intervals [place] Rate: 71 P: 13 CT: 190 QRS: -29 QRSD: 92 T: 9 QT: 398 QTc: 432 Interpretive Statements Sinus rhythm with occasional premature ventricular complexes Low voltage QRS Inferior infarct , age undetermined Possible Anterolateral infarct , age undetermined Imaging Chest x-ray: Radiologist's impression: No acute pulmonary process. Labs 12/29/24 11:02 12/29/24 11:02 Labs: Laboratory Results - last 24 hr 12/29/24 12/29/24 11:02 13:02 WBC 7.2 RBC 4.73 Hgb 15.1 Hct 43.8 MCV 92.4 MCH 31.8 MCHC 34.4 RDW 14.3 Plt Count 239 Neut % (Auto) 74.1 Lymph % (Auto) 15.1 L [place] % (Auto) 8.3 Eos % (Auto) 2.2 Baso % (Auto) 0.3 Neut # (Auto) 5300 Lymph # (Auto) 1100 [place] # (Auto) 600 Eos # (Auto) 200 Baso # (Auto) 0 PT 11.4 INR 1.0 D-Dimer 363 Sodium 139 Potassium 4.6 Chloride 106 Carbon Dioxide 23 BUN 19 Creatinine 1.14 Estimated GFR > 60 BUN/Creatinine Ratio 16.7 Glucose 84 Lactate 1.0 Calcium 8.5 Total Bilirubin 1.6 H AST 31 ALT 37 Alkaline Phosphatase 82 Troponin I < 0.012 0.022 NT-Pro-B Natriuret Pep 47 Total Protein 7.2 Albumin 4.5 Globulin 2.7 Albumin/Globulin Ratio 1.7 Assessment & Plan Assessment & Plan narrative: 1. URI and Dyspnea, present on admission and active. 2. Chest pain, present on admission and active. 3. HTN, present on admission and active. 4. JUHI, present on admission and active. 5. Asthma, present on admission and active. 6. Hypothyroidism, present on admission and active. PLAN: -telemetry. -methylprednisolone IV q.6 hours -albuterol nebs scheduled q.6 hours -doxycycline 100 mg p.o. b.i.d. If the patient does not improve clinically by tomorrow morning we will reassess whether or not cardiac workup would be indicated. Anticipate 1 MN of care, supports observation status. Full code. Time-Based Coding :: 35 min spent with patient and on the chart (including review of chart, obtaining history, exam, reviewing outside data, placing orders, documenting exam and treatment plan, and counseling patient) on 12/29. Quality MIPS - Admit I confirm the patient?s Advance Care Plan is present, Code status is documented, Surrogate decision maker is in patient?s record [If Yes, STOP here]: Yes MIPS - Meds 'Current medications' to include all prescriptions, [id number] products, herbals, cannabis/cannabidiol products, and vitamin/mineral/dietary (nutritional) supplements. I have utilized all available resources to obtain, update, or review the patient?s current medications. [If Yes, STOP here]: Yes
[2024-12-29 16:24] LABS: Troponin I < 0.012 ng/mL (0.01-0.034)
[2024-12-29] MEDS: methylPREDNISolone 125 MG/2 ML VIAL 60 MG IV ×2 (17:30→23:01)
[2024-12-29] MEDS: DOXYCYCLINE HYCLATE 100 MG TABLET PO (20:17)
[2024-12-29] MEDS: BENZONATATE 100 MG CAPSULE PO (23:02)
[2024-12-30] VITALS: BP 108/68; PULSE 68; RESP 18; TEMP 35.9; O2SAT 93
[2024-12-30 00:02] LABS: Troponin I < 0.012 ng/mL (0.01-0.034)
[2024-12-30 04:00] VITALS: BP 132/70; PULSE 70; RESP 18; TEMP 35.6; O2SAT 96
[2024-12-30 06:21] LABS: Add Manual Diff / Slide Review NO; Basophils Absolute Auto 100 /uL (0-100); Basophils Percent Auto 0.5 % (0-2); Eosinophils Absolute Auto 0 /uL (0-450); Hematocrit 44.7 % (41-53); Hemoglobin 15.6 g/dL (13.5-17.5); Lymphocytes Absolute Auto 400 /uL (1100-4500); Lymphocytes Percent Auto 3.2 % (25-40); Mean Corpuscular HGB Conc 34.8 % (30-36); Mean Corpuscular Volume 92.1 fL (80-100); Monocytes Absolute Auto 0 /uL (0-900); Monocytes Percent Auto 0.4 % (3-14); Neutrophils Absolute Auto 10700 /uL (1500-7000); Neutrophils Percent Auto 95.9 % (50-75); Platelet Count 245 X10^3/uL (150-400); Red Blood Cell Count 4.86 X10^6/uL (4.5-5.9); White Blood Cell Count 11.1 X10^3/uL (4.5-11.0)
[2024-12-30 06:34] LABS: BUN Creatinine Ratio 22.1 (6-22); Blood Urea Nitrogen 21 mg/dL (9-20); Calcium 9.1 mg/dL (8.4-10.2); Carbon Dioxide 20 mmol/L (22-32); Chloride 106 mmol/L (98-107); Estimated Glomerular Filt Rate > 60 mL/min (>60); Glucose 147 mg/dL (70-99); HEMOLYSIS 16 (0-50); Potassium 4.8 mmol/L (3.4-5.1); Sodium 136 mmol/L (137-145)
[2024-12-30] MEDS: methylPREDNISolone 125 MG/2 ML VIAL 60 MG IV (06:52)
[2024-12-30 08:00] VITALS: BP 112/59; PULSE 76; RESP 18; TEMP 37; O2SAT 96
[2024-12-30] MEDS: DOXYCYCLINE HYCLATE 100 MG TABLET PO (08:07)
--- NOTE | 2024-12-30 08:28 | PM.PN.1 ---
Subjective Subjective Date Patient Seen: 12/30/24 Interval history: 74-year-old male with a history of hypothyroidism, hypertension, GERD, JUHI, and asthma. The patient presents with 3 weeks of being ill. Initially had a URI with shortness a breath, and a cough which was productive of green phlegm. These symptoms improved over the last 3 weeks, however he was had persistent dyspnea and chest heaviness. He notes that the symptoms have persisted. He feels as though he was not able to get weaned in and out. He was not had audible wheezing. He was worried about his childhood asthma reactivating. He does note dyspnea with exertion. He did have a stress test in 2020 which was low risk. He was not particularly worried about his heart but more about the possibility of asthmatic bronchitis. Chest x-ray was clear. Initial troponin had minimal elevation. He was had some diarrhea chronically, this alternates with constipation. No leg edema, or orthopnea. He does have a brother with a cardiomyopathy. 1. URI and Dyspnea, present on admission and active. 2. Chest pain, present on admission and active. 3. HTN, present on admission and active. 4. JUHI, present on admission and active. 5. Asthma, present on admission and active. 6. Hypothyroidism, present on admission and active. PLAN: -telemetry. -methylprednisolone IV q.6 hours -albuterol nebs scheduled q.6 hours -doxycycline 100 mg p.o. b.i.d. If the patient does not improve clinically by tomorrow morning we will reassess whether or not cardiac workup would be indicated. Anticipate 1 MN of care, supports observation status. Full code. Time-Based Coding :: 35 min spent with patient and on the chart (including review of chart, obtaining history, exam, reviewing outside data, placing orders, documenting exam and treatment plan, and counseling patient) Exam Vital Signs (past 8 hours): - 12/30/24 04:00 Temperature 96.0 F L Pulse Rate 70 Respiratory Rate 18 Blood Pressure 132/70 Pulse Oximetry 96 Oxygen Flow Rate 0 Fraction of Inspired Oxygen 21 SaO2/FiO2 Ratio 457 Oxygen Delivery Method Room Air Oxygen Flow Rate 0 Objective Labs 12/30/24 06:03 12/30/24 06:03 Labs: Laboratory Results - last 24 hr 12/29/24 12/29/24 12/29/24 11:02 13:02 15:50 WBC 7.2 RBC 4.73 Hgb 15.1 Hct 43.8 MCV 92.4 MCH 31.8 MCHC 34.4 RDW 14.3 Plt Count 239 Neut % (Auto) 74.1 Lymph % (Auto) 15.1 L [place] % (Auto) 8.3 Eos % (Auto) 2.2 Baso % (Auto) 0.3 Neut # (Auto) 5300 Lymph # (Auto) 1100 [place] # (Auto) 600 Eos # (Auto) 200 Baso # (Auto) 0 PT 11.4 INR 1.0 D-Dimer 363 Sodium 139 Potassium 4.6 Chloride 106 Carbon Dioxide 23 BUN 19 Creatinine 1.14 Estimated GFR > 60 BUN/Creatinine Ratio 16.7 Glucose 84 Lactate 1.0 Calcium 8.5 Total Bilirubin 1.6 H AST 31 ALT 37 Alkaline Phosphatase 82 Troponin I < 0.012 0.022 < 0.012 NT-Pro-B Natriuret Pep 47 Total Protein 7.2 Albumin 4.5 Globulin 2.7 Albumin/Globulin Ratio 1.7 12/29/24 12/30/24 23:30 06:03 WBC 11.1 H D RBC 4.86 Hgb 15.6 Hct 44.7 MCV 92.1 MCH 32.0 MCHC 34.8 RDW 14.0 Plt Count 245 Neut % (Auto) 95.9 H D Lymph % (Auto) 3.2 L [place] % (Auto) 0.4 L Eos % (Auto) 0.0 L Baso % (Auto) 0.5 Neut # (Auto) 73502 H Lymph # (Auto) 400 L [place] # (Auto) 0 Eos # (Auto) 0 Baso # (Auto) 100 PT INR D-Dimer Sodium 136 L Potassium 4.8 Chloride 106 Carbon Dioxide 20 L BUN 21 H Creatinine 0.95 Estimated GFR > 60 BUN/Creatinine Ratio 22.1 H Glucose 147 H Lactate Calcium 9.1 Total Bilirubin AST ALT Alkaline Phosphatase Troponin I < 0.012 NT-Pro-B Natriuret Pep Total Protein Albumin Globulin Albumin/Globulin Ratio [facility] Medical History Peripheral neuropathy Tinea pedis Left foot pain Left hip pain Plantar warts Eczema Osteoarthritis Asthma Peripheral neuropathy Gout Foot pain Measles GERD (gastroesophageal reflux disease) Diverticular disease Low testosterone Hypothyroidism Surgical History History of left knee replacement Anesthesia History of knee surgery (~2014) History of cholecystectomy (~2008) Hx of laparoscopic gastric banding Sleep apnea Family History Father History of heart disease Mother Hypertension Brother History of heart disease Social History household members: spouse Smoking Status: Never smoker alcohol intake: current Assessment & Plan Time-Based Coding :: [TOTAL MINUTES] spent with patient and on the chart (including review of chart, obtaining history, exam, reviewing outside data, placing orders, documenting exam and treatment plan, and counseling patient) on [DATE].
[2024-12-30 08:29] VITALS: PULSE 73; RESP 16; O2SAT 99
[2024-12-30] MEDS: ALBUTEROL 2.5 MG/3 ML NEB (ADULT) INH (08:30)
--- NOTE | 2024-12-30 08:43 | P.DS_ITS ---
History of Present Illness History of Present Illness Date Patient Seen: 12/30/24 Chief complaint: SOB 3 weeks Narrative: chief complaint: Cough and dyspnea secondary to asthma History of present illness: 74-year-old male with a history of hypothyroidism, hypertension, GERD, JUHI, and asthma. The patient presents with 3 weeks of being ill. Initially had a URI with shortness a breath, and a cough which was productive of green phlegm. These symptoms improved over the last 3 weeks, however he was had persistent dyspnea and chest heaviness. He notes that the symptoms have persisted. He feels as though he was not able to get weaned in and out. He was not had audible wheezing. He was worried about his childhood asthma reactivating. He does note dyspnea with exertion. He did have a stress test in 2020 which was low risk. He was not particularly worried about his heart but more about the possibility of asthmatic bronchitis. Chest x-ray was clear. Initial troponin had minimal elevation. He was had some diarrhea chronically, this alternates with constipation. No leg edema, or orthopnea. He does have a brother with a cardiomyopathy. Hospital course: 12/30: Patient feeling much better no dyspnea at all comfortable on room air troponins less than 0.012 Review of systems: No fever or chills new line no difficulty swallowing No shortness a breath Physical exam: No acute distress HEENT unremarkable Heart rate and rhythm regular no murmurs Lungs clear from apices to bases with good air movement Assessment and plan: 1. URI and Dyspnea, present on admission and active. With asthma and good response to corticosteroid bronchodilator and doxycycline discharge to home 2. Chest pain, present on admission and active. no further workup 3. HTN, present on admission and active. 4. JUHI, present on admission and active. 5. Asthma, present on admission and active. 6. Hypothyroidism, present on admission and active. . Time-Based Coding :: 35 min spent with patient and on the chart (including review of chart, obtaining history, exam, reviewing outside data, placing orders, documenting exam and treatment plan, and counseling patient) Discharge Providers Provider Date of admission: 12/29/24 14:38 Discharge Date: 12/30/24 Discharge provider: Odell Carl MD Exam Vital Signs (past 8 hours): - 12/30/24 04:00 12/30/24 08:00 12/30/24 08:29 Temperature 96.0 F L 98.6 F Pulse Rate 70 76 73 Respiratory Rate 18 18 16 Blood Pressure 132/70 112/59 L Pulse Oximetry 96 96 99 Oxygen Delivery Method Room Air Oxygen Flow Rate 0 0 Fraction of Inspired Oxygen 21 SaO2/FiO2 Ratio 457 Oxygen Delivery Method Room Air Oxygen Flow Rate 0 Objective Labs 12/30/24 06:03 12/30/24 06:03 Labs: Laboratory Results - last 24 hr 12/29/24 12/29/24 12/29/24 11:02 13:02 15:50 WBC 7.2 RBC 4.73 Hgb 15.1 Hct 43.8 MCV 92.4 MCH 31.8 MCHC 34.4 RDW 14.3 Plt Count 239 Neut % (Auto) 74.1 Lymph % (Auto) 15.1 L [place] % (Auto) 8.3 Eos % (Auto) 2.2 Baso % (Auto) 0.3 Neut # (Auto) 5300 Lymph # (Auto) 1100 [place] # (Auto) 600 Eos # (Auto) 200 Baso # (Auto) 0 PT 11.4 INR 1.0 D-Dimer 363 Sodium 139 Potassium 4.6 Chloride 106 Carbon Dioxide 23 BUN 19 Creatinine 1.14 Estimated GFR > 60 BUN/Creatinine Ratio 16.7 Glucose 84 Lactate 1.0 Calcium 8.5 Total Bilirubin 1.6 H AST 31 ALT 37 Alkaline Phosphatase 82 Troponin I < 0.012 0.022 < 0.012 NT-Pro-B Natriuret Pep 47 Total Protein 7.2 Albumin 4.5 Globulin 2.7 Albumin/Globulin Ratio 1.7 12/29/24 12/30/24 23:30 06:03 WBC 11.1 H D RBC 4.86 Hgb 15.6 Hct 44.7 MCV 92.1 MCH 32.0 MCHC 34.8 RDW 14.0 Plt Count 245 Neut % (Auto) 95.9 H D Lymph % (Auto) 3.2 L [place] % (Auto) 0.4 L Eos % (Auto) 0.0 L Baso % (Auto) 0.5 Neut # (Auto) 20794 H Lymph # (Auto) 400 L [place] # (Auto) 0 Eos # (Auto) 0 Baso # (Auto) 100 PT INR D-Dimer Sodium 136 L Potassium 4.8 Chloride 106 Carbon Dioxide 20 L BUN 21 H Creatinine 0.95 Estimated GFR > 60 BUN/Creatinine Ratio 22.1 H Glucose 147 H Lactate Calcium 9.1 Total Bilirubin AST ALT Alkaline Phosphatase Troponin I < 0.012 NT-Pro-B Natriuret Pep Total Protein Albumin Globulin Albumin/Globulin Ratio PFSH Medical History Peripheral neuropathy Tinea pedis Left foot pain Left hip pain Plantar warts Eczema Osteoarthritis Asthma Peripheral neuropathy Gout Foot pain Measles GERD (gastroesophageal reflux disease) Diverticular disease Low testosterone Hypothyroidism Surgical History History of left knee replacement Anesthesia History of knee surgery (~2014) History of cholecystectomy (~2008) Hx of laparoscopic gastric banding Sleep apnea Family History Father History of heart disease Mother Hypertension Brother History of heart disease Social History household members: spouse Smoking Status: Never smoker alcohol intake: current Discharge Plan Discharge Plan Patient Disposition: Home Discharge orders & Medications Prescriptions: New benzonatate 100 mg Capsule 100 mg PO TID PRN (Reason: Cough) Qty: 12 0RF doxycycline hyclate 100 mg Tablet 100 mg PO BID Qty: 14 0RF budesonide-formoterol [Symbicort] 160-4.5 mcg/actuation HFA aerosol inhaler 2 puff inhalation BID Qty: 10.2 2RF prednisone 20 mg tablet 20 mg PO BID Qty: 10 0RF Continued esomeprazole magnesium [Nexium] 40 mg capsule,delayed release(DR/EC) 40 mg PO DAILY levothyroxine 88 mcg tablet 88 mcg PO DAILY losartan 25 mg tablet 25 mg PO DAILY Mounjaro 15 mg/0.5 mL pen injector 15 mg SUBCUT QWEEK Patient Comments: [NO ORIGINAL SIG] testosterone 20.25 mg/1.25 gram (1.62 %) gel in metered-dose pump 81 mg topical QAM allopurinol 300 mg tablet 300 mg PO DAILY benzonatate 200 mg capsule 200 mg PO BID PRN (Reason: cough) Qty: 28 0RF Discontinued montelukast 10 mg tablet 10 mg PO QPM Visit Report/Discharge Packet Stand Alone Forms: Patient Portal/API Discharge Data Attending Provider: Bernardino Vivar Admit Date/Time: 12/29/24 14:38
--- NOTE | 2024-12-30 10:33 | PC.NURSE ---
Provided pt education on new and d/c'ed medication, discharge packet provided. Pt stated all questions answered. PIV removed. All belongings with pt. Pt escorted out via wheelchair to POV by MASON Rodas.
--- NOTE | 2024-12-30 10:40 | CM.DANOTE ---
Initial DCP Assessment Visit Note Reviewed EMR and team rounds for status updates. Met with pt at bedside to introduce self and role, pt was found to be alert/oriented, sitting on the edge of the bed preparing for home d/c. Pt resides modified independently with his spouse in their own home in [place]. He drove himself to the hospital, and will be driving himself home. His spouse is also arriving home today from a retreat, and will be able to assist him with care as needed. Pt declined any CM d/c assistance or resources at this time. Payor: Cesar Rey PCP: Not identified Pt is a 74 year-old M with a hx of asthma, presented to the ED yesterday afternoon with c/o worsening shortness of breath for the last 3-weeks, and a persistent cough for the last 2-weeks. He had been using albuterol at home with immediate benefit, however continued to have symptoms. Chest x-ray in the ED was clear, and he was negative for covid or pneumonia. He was started on a corticosteroid, a bronchodilator, and oral doxycycline in the ED, and today feels overall improvement in symptoms. He was medically cleared for home d/c today, and was discharged with a course of oral doxycycline, prednisone, and Symicort. No further DCP needs are identified at this time. Discharge Planning/Care Management CM Discharge Assessment Start: 12/29/24 14:40 Freq: Status: Discharge Protocol: Document 12/30/24 10:38 DPL (Rec: 12/30/24 10:40 DPL [id number]) Discharge Planning Assessment Assigned Insulation Manager PARAM Montiel Advance Directives? No History Provided By Patient,Medical Record Has Patient been admitted in last 30 No days? Prior Living Arrangements House Household Members spouse Type of transporation used prior to Drives own vehicle admit Independent with ADL's No: modified independent with a walker Is patient alert and oriented? Yes Caregiver for Another No DME Already Rented / Owned FWW / Walker Comment No identified home d/c needs at this time. Barriers to Discharge No Discharge Plan Home Referrals Initiated None needed Whiteboard Updated in Patient Room with Yes name and ext. # of Insulation Manager Review Status In Process Please Provide Date Initial DC 12/30/24 Assessment Was Performed
== END 2024-12-30 10:36 | disposition home or self-care (01) ==
LOC: ED 14:14 → AC 14:39
PROVIDERS: Admitting Provider Hospitalist; Emergency Provider Emergency Medicine; Referring Provider Emergency Medicine; Visit Provider Hospitalist
DX: J06.9 Acute upper respiratory infection, unspecified (principal); R07.9 Chest pain, unspecified; E03.9 Hypothyroidism, unspecified; I10 Essential (primary) hypertension; K21.9 Gastro-esophageal reflux disease without esophagitis; G47.33 Obstructive sleep apnea (adult) (pediatric); J45.909 Unspecified asthma, uncomplicated
CPT/HCPCS: 36415; 71045; 80048; 80053; 83605; 83880; 84484; 85025; 85379; 85610; 93005; 94640; 96374; 96376; 99285; G0378; J2919; J7613